=== PATIENT | male | born 1955 | race Hispanic/Latino ===

== ENCOUNTER 2016-09-25 12:23 | Inpatient (IN) | payer MEDICARE, OTHER ==
[2016-09-25 13:05] VITALS: BMI 27.4
--- NOTE | 2016-09-25 13:27 | C.PDOC ---
History Of Present Illness 61 yr old male with PMHx of HTN, diabetes and colon cancer, presents to the ER with complaints of dizziness, weakness and mild chest heaviness for the past 3 days. Patient denies fever, SOB, nausea, vomiting, abdominal pain, diarrhea, melena or back pain. Time Seen by Provider: 09/25/16 13:03 Chief Complaint (Nursing): Weakness/Neurological Deficit History Per: Patient History/Exam Limitations: no limitations Onset/Duration Of Symptoms: Days (3) Current Symptoms Are (Timing): Still Present Past Medical History Reviewed: Historical Data, Nursing Documentation, Vital Signs Vital Signs: Last Vital Signs Temp 97.5 F L 09/25/16 13:03 Pulse 72 09/25/16 16:37 Resp 18 09/25/16 16:37 BP 143/70 09/25/16 16:37 Pulse Ox 98 09/25/16 16:37 - Medical History PMH: HTN, Malignancy (colon) - [facility] Procedures EXCISION OF STOMACH, ENDO, DIAGN (02/29/16) INSPECTION OF LOWER INTESTINAL TRACT, ENDO (02/29/16) Family History: States: No Known Family Hx - Social History Hx Alcohol Use: No Hx Substance Use: No - Immunization History Hx Tetanus Toxoid Vaccination: No Hx Influenza Vaccination: No Hx Pneumococcal Vaccination: No Review Of Systems Except As Marked, All Systems Reviewed And Found Negative. Constitutional: Positive for: Weakness. Negative for: Fever Cardiovascular: Positive for: Other ((+) Mild chest heaviness. ) Respiratory: Negative for: Shortness of Breath Gastrointestinal: Negative for: Nausea, Vomiting, Abdominal Pain, Diarrhea, Melena Musculoskeletal: Negative for: Back Pain Neurological: Positive for: Dizziness Physical Exam - Physical Exam Appears: Non-toxic, No Acute Distress, Other ((+) Cachectic) Skin: Warm, Dry, Pale Head: Atraumatic, Normacephalic Eye(s): bilateral: Normal Inspection, PERRL, EOMI Oral Mucosa: Moist Chest: Symmetrical, No Tenderness Cardiovascular: Rhythm Regular, No Murmur Respiratory: Normal Breath Sounds, No Rales, No Rhonchi, No Stridor, No Wheezing Gastrointestinal/Abdominal: Normal Exam, Soft, No Tenderness, No Guarding, No Rebound Extremity: Normal ROM, No Swelling ED Course And Treatment - Laboratory Results Result Diagrams: 09/25/16 14:29 09/25/16 14:29 O2 Sat by Pulse Oximetry: 98 - Other Rad CXR X-Ray: Viewed By Me, Read By Radiologist Interpretation: PROCEDURE: CHEST RADIOGRAPH, 1 VIEW. HISTORY: chest pain. COMPARISON: 02/29/2016. FINDINGS: LUNGS: Biapical pleural thickening with upper lobe granulomatous changes. Diffuse increased interstitial lung markings. Right hilar prominence. Mild right midlung atelectasis. No gross focal infiltrate or effusion. PLEURA: No pneumothorax or pleural fluid seen. CARDIOVASCULAR: Tortuous aorta. OSSEOUS STRUCTURES: Degenerative changes in the spine and shoulders. VISUALIZED UPPER ABDOMEN: Normal. OTHER FINDINGS: None. IMPRESSION: Biapical pleural thickening with upper lobe granulomatous changes. Diffuse increased interstitial lung markings. Right hilar prominence. Mild right midlung atelectasis. No gross focal infiltrate or effusion. Medical Decision Making Medical Decision Making: r/o cardiac, infectious, metabolic etiology -PLAN: * * CT - Abd & Pelvis * CXR * EKG * Troponin * VBG * CBC * CMP * Urinalysis * Rocephin IVPB 500: la >2. code sepsis activated. wbc 17. hemodynacmially stable. does not need 30cc/kg bolus. urine treated. case discussed withnay minor, accepts tele. Disposition - Disposition Disposition: HOSPITALIZED Disposition Time: 17:06 Condition: STABLE - Clinical Impression Clinical Impression: Sepsis, UTI (urinary tract infection) - Scribe Statement The provider has reviewed the documentation as recorded by the Nicolas Fierro Provider Attestation: All medical record entries made by the Rubénibe were at my direction and personally dictated by me. I have reviewed the chart and agree that the record accurately reflects my personal performance of the history, physical exam, medical decision making, and the department course for this patient. I have also personally directed, reviewed, and agree with the discharge instructions and disposition. Decision To Admit - Pt Status Changed To: Hospital Disposition Of: Inpatient - Admit Certification Admit to Inpatient:: After my assessment, the patient will require hospitalization for at least two midnights. This is because of the severity of symptoms shown, intensity of services needed, and/or the medical risk in this patient being treated as an outpatient. - InPatient: Physician Admission Certification: I certify that this patient requires 2 or more midnights of care for the following reason:: pt with code sepsis, uro septic needs iv antibiotics - . Bed Request Type: Telemetry Admitting Physician: Gibran Minor Patient Diagnosis: Sepsis, UTI (urinary tract infection)
[2016-09-25 14:43] LABS: BASO % 0.3 % (0.0-2.0); LYMPH # 1.1 K/uL (1.0-4.3); LYMPH % 6.7 % (20.0-40.0); MEAN CELL VOLUME 77.5 fL (80.0-94.0); MEAN CORPUSCULAR HEMOGLOBIN 25.7 pg (27.0-31.0); MEAN CORPUSCULAR HGB CONC 33.1 g/dL (33.0-37.0); MONO % 5.8 % (0.0-10.0); NEUT # 14.5 K/uL (1.8-7.0); NEUT % 87.2 % (50.0-75.0); PLATELET COUNT 252 K/uL (130-400); RBC 5.21 Mil/uL (4.40-5.90); RED CELL DISTRIBUTION WIDTH 18.1 % (11.5-14.5)
[2016-09-25 14:44] LABS: ALBUMIN 4.3 g/dL (3.5-5.0); HEMOGLOBIN 13.4 g/dL (12.0-18.0); WHITE BLOOD COUNT 16.6 K/uL (4.8-10.8)
[2016-09-25 14:47] LABS: ALB/GLOB RATIO 0.8 (1.0-2.1); ALT/SGPT 47 U/L (21-72); AST/SGOT 36 U/L (17-59); BLOOD UREA NITROGEN 18 mg/dL (9-20); GFR AFRICAN-AMERICAN > 60; GFR NON-AFRICAN AMERICAN > 60
[2016-09-25 14:48] LABS: CALCIUM 9.5 mg/dl (8.6-10.4); LIPASE 108 U/L (23-300)
[2016-09-25 14:54] LABS: INR 1.2
[2016-09-25 14:55] LABS: PROTHROMBIN TIME 13.3 SECONDS (9.7-12.2)
[2016-09-25 15:03] LABS: NEUTROPHIL 87 % (50-75); TOTAL CELLS COUNTED 100
[2016-09-25 15:04] LABS: ANISOCYTOSIS SLIGHT; LYMPHOCYTE 7 % (20-40); MONOCYTE 6 % (0-10); OVALOCYTES SLIGHT; PLATELET ESTIMATE NORMAL (NORMAL)
[2016-09-25 15:29] LABS: SQUAMOUS EPITHIAL 2 /hpf (0-5); URINE BACTERIA FEW (<OCC); URINE BILIRUBIN NEGATIVE (NEGATIVE); URINE BLOOD 1+ (NEGATIVE); URINE CLARITY Hazy (Clear); URINE COLOR Amber (YELLOW); URINE GLUCOSE (UA) 1+ mg/dL (Normal); URINE HYALINE CAST 0-2 /lpf (0-2); URINE LEUKOCYTE ESTERASE 2+ Leu/uL (Negative); URINE NITRATE POSITIVE (NEGATIVE); URINE PROTEIN 2+ mg/dL (NEGATIVE); URINE UROBILINOGEN NORMAL mg/dL (0.2-1.0)
[2016-09-25] MEDS ORDERED: Sodium Chloride 0.9% 1,000 ML IV ONE (15:33)
[2016-09-25] MEDS ORDERED: Iodixanol 320 mg/ml 150 ml Bottle IV ONE (15:38)
--- NOTE | 2016-09-25 15:41 | RAD ---
PROCEDURE: CHEST RADIOGRAPH, 1 VIEW HISTORY: chest pain COMPARISON: 02/29/2016 FINDINGS: LUNGS: Biapical pleural thickening with upper lobe granulomatous changes. Diffuse increased interstitial lung markings. Right hilar prominence. Mild right midlung atelectasis. No gross focal infiltrate or effusion. PLEURA: No pneumothorax or pleural fluid seen. CARDIOVASCULAR: Tortuous aorta. OSSEOUS STRUCTURES: Degenerative changes in the spine and shoulders. VISUALIZED UPPER ABDOMEN: Normal. OTHER FINDINGS: None. IMPRESSION: Biapical pleural thickening with upper lobe granulomatous changes. Diffuse increased interstitial lung markings. Right hilar prominence. Mild right midlung atelectasis. No gross focal infiltrate or effusion.
[2016-09-25] MEDS ORDERED: Sodium Chloride 0.9% 1,000 ML ONE (15:53)
[2016-09-25] MEDS ORDERED: cefTRIAXone IV 1 gm in Dextros 50 ML IVPB ONE (15:53)
[2016-09-25 15:58] LABS: VENOUS BLOOD GAS BASE EXCESS 2.5 mmol/L (0.0-2.0); VENOUS BLOOD GAS PCO2 37 mmHg (40-60); VENOUS BLOOD GAS PO2 40 mm/Hg (30-55); VENOUS BLOOD PH 7.46 (7.32-7.43)
--- NOTE | 2016-09-25 16:54 | CT ---
CT abdomen and pelvis History: Abdominal pain. Leukocytosis. Comparison: CT scan dated 03/03/2016 Technique: Multiple contiguous axial images were performed through the abdomen and pelvis with the use of intravenous contrast. Subsequently, sagittal and coronal reformatted images were obtained. This CT exam was performed using one or more of the following dose reduction techniques: Automated exposure control, adjustment of the mA and/or kV according to patient size, and/or use of iterative reconstruction technique. Findings: 8.4 millimeter pulmonary nodule seen within the right middle lobe laterally on series 3, image 6 previously this measured 6 millimeters. Interval increase in size since the prior study. Atelectasis within the lingula and bilateral lung bases. Additional scattered calcified foci at the left lung base suggestive for calcified granulomatous changes. 5 millimeter subpleural pulmonary nodule at the right lobe laterally not as well appreciated the prior study. No pleural or pericardial effusion. Fatty infiltration of the liver. Few punctate calculi at the dependent portion the gallbladder. Gallbladder is somewhat distended. Spleen is preserved. Splenule. Adrenal glands are preserved. Pancreas is preserved. Underdistended and or mildly thick-walled stomach. Atrophic right kidney with multiple hypoechoic cysts. Left kidney: Multiple hypoattenuated lesions; for example, in the midpole a 1.3 centimeter lesion demonstrates a Hounsfield unit attenuation of 25, indeterminate. Thick-walled urinary bladder which may represent an underlying cystitis. Prominent and enlarged prostate gland measuring up to 6.0 x 4.3 centimeters with thickened nodular calcification within the midportion of the prostate measuring 1.5 centimeters. Prominent seminal vesicles with calcifications with prominent pelvic vascular calcifications. Mild thickening of the descending and sigmoid colons which may represent an underlying mild colitis. Clinical correlation. Patient status post right hemicolectomy. Few shotty para-aortic and mesenteric lymph nodes. Calcification and plaque within the aorta. Fat containing right inguinal hernia. Soft tissue calcifications seen within the bilateral buttock regions. Prominent degenerative changes in the spine. Bridging sclerosis of the bilateral SI joints. Multilevel posterior disc osteophyte complexes throughout the thoracic and lumbar spine. Impression: 1. Thick-walled urinary bladder which may represent an underlying cystitis. 2. Prominent and enlarged prostate gland measuring up to 6.0 x 4.3 centimeters with thickened nodular calcification within the midportion of the prostate measuring 1.5 centimeters. 3. Prominent seminal vesicles with calcifications with prominent pelvic vascular calcifications. 4. Mild thickening of the descending and sigmoid colons which may represent an underlying mild colitis. Clinical correlation. Patient status post right hemicolectomy. 5. 8.4 millimeter pulmonary nodule seen within the right middle lobe laterally on series 3, image 6 previously this measured 6 millimeters. Interval increase in size since the prior study. 6. Atelectasis within the lingula and bilateral lung bases. Additional scattered calcified foci at the left lung base suggestive for calcified granulomatous changes. 5 millimeter subpleural pulmonary nodule at the right lobe laterally not as well appreciated the prior study. 7. Fatty infiltration of the liver. 8. Few punctate calculi at the dependent portion the gallbladder. Gallbladder is somewhat distended. 9. Underdistended and or mildly thick-walled stomach. 10. Atrophic right kidney with multiple hypoechoic cysts. 11. Multiple hypoattenuated lesions in the left kidney ; for example, in the midpole a 1.3 centimeter lesion demonstrates a Hounsfield unit attenuation of 25, indeterminate. Additional findings as above.
--- NOTE | 2016-09-25 18:56 | CP.PCM.HP ---
<Booker Land - Last Filed: 09/25/16 19:54> History of Present Illness - History of Present Illness History of Present Illness: CC: "weakness, lightheadedness and decreased appetite" HPI: 61 year old Male PMHx dermatomyositis, TIA/stroke, hypertension, hypothyroidism, diabetes, colon cancer, presenting to the ED complaining of weakness, lightheadness, and decreased appetite for past 4 days.Patient reports first time feeling weakness, lightheadedness and decreased appetite. Patient denies relieving and remitting factors. Patient also frequency in urination, denies dysuria, denies hematuira, and reports changed from normal flow to short streams. Patient reports he usually eats TV dinners, and but currently he is currently forcing himself to eat about 1-2 bites. He states that after 1-2 bites , he feels full. PMD: Dr. Maki GI: Dr. Layne PMHxx: dermatomyositis (dx at age 7), TIA/stroke, hypertension, hypothyroidism, diabetes, colon cancer (dx 2012) Surgical Hx: 2013- Colon cancer co-resection; lost 40lbs; muscle biopsy; prior hx of feeding tube Medications: metformin 500mg PO bid, Tradjenta 5mg once a day , enalapril 10mg PO BID Family Hx Mother; cancer unknown Allergies: denies Social Hx: denies drugs, denies alcohol consumption; lives by himself; lives in basement apartment; 3 cigars a day since age 24 Prior hospitalization: bleeding (February 2016)--> underwent endoscopic procedure Present on Admission - Present on Admission Any Indicators Present on Admission: No Review of Systems - Constitutional Constitutional: Weakness. absent: Chills, Fever, Frequent Falls - EENT Ears: Dizziness Nose/Mouth/Throat: absent: Nasal Congestion, Nasal Discharge - Cardiovascular Cardiovascular: absent: Chest Pain, Claudication, Irregular Heart Rhythm, Leg Edema, Palpitations, Pedal Edema - Respiratory Respiratory: absent: As Per HPI, Cough, Dyspnea, Hemoptysis - Gastrointestinal Gastrointestinal: Early Satiety. absent: Abdominal Pain, Change in Bowel Habits , Constipation, Heartburn, Loose Stools, Nausea - Genitourinary Genitourinary: Change in Urinary Stream, Urinary Frequency. absent: Difficulty Urinating, Dysuria - Musculoskeletal Musculoskeletal: absent: Myalgias, Numbness, Tingling - Integumentary Integumentary: absent: Erythema, Non-Healing Lesions, Photosensitivity, Skin Ulcer, Jaundice - Neurological Neurological: Weakness. absent: Abnormal Movements, Tingling, Tremor - Psychiatric Psychiatric: Change in Appetite. absent: Anxiety, Panic Attacks, Suicidal Ideation - Endocrine Endocrine: absent: Fatigue, Palpitations Past Patient History - Past Medical History & Family History Past Medical History?: Yes - Past Social History Smoking Status: Smokes 3 Cigars/day Chewing Tobacco Use: No Cigar Use: No Alcohol: None Drugs: Denies Home Situation {Lives}: Alone - CARDIAC Hx Hypertension: Yes - PULMONARY Hx Respiratory Disorders: No - NEUROLOGICAL Hx Neurological Disorder: Yes HX Cerebrovascular Accident: Yes (Pt reports swallowing problem since CVA) - HEENT Hx HEENT Problems: No - ENDOCRINE/METABOLIC Hx Endocrine Disorders: Yes Hx Diabetes Mellitus Type 2: Yes - HEMATOLOGICAL/ONCOLOGICAL Hx Blood Disorders: Yes Hx Cancer: Yes (COLON CA) - INTEGUMENTARY Hx Dermatological Problems: Yes Other/Comment: dermatomyositis - MUSCULOSKELETAL/RHEUMATOLOGICAL Hx Musculoskeletal Disorders: Yes - GASTROINTESTINAL Hx Gastrointestinal Disorders: Yes Hx Bowel Surgery: Yes Other/Comment: COLON CANCER. GI Bleed= feb 2016 - GENITOURINARY/GYNECOLOGICAL Hx Genitourinary Disorders: No - PSYCHIATRIC Hx Substance Use: No - SURGICAL HISTORY Hx Surgeries: Yes Other/Comment: colon cancer surgery - ANESTHESIA Hx Anesthesia: Yes Hx Anesthesia Reactions: No Meds Allergies/Adverse Reactions: Allergies Allergy/AdvReac Type Severity Reaction Status Date / Time No Known Allergies Allergy Verified 09/25/16 13:02 Physical Exam - Constitutional Appears: Non-toxic, No Acute Distress, Cachectic - Head Exam Head Exam: ATRAUMATIC, NORMAL INSPECTION, NORMOCEPHALIC - Eye Exam Eye Exam: EOMI, Normal appearance Pupil Exam: NORMAL ACCOMODATION, PERRL - ENT Exam ENT Exam: Mucous Membranes Moist - Neck Exam Neck exam: Positive for: Normal Inspection - Respiratory Exam Respiratory Exam: Clear to Auscultation Bilateral, NORMAL BREATHING PATTERN. absent: Prolonged Expiratory Phase, Rales, Rhonchi, Wheezes - Cardiovascular Exam Cardiovascular Exam: REGULAR RHYTHM, +S1, +S2 - GI/Abdominal Exam GI & Abdominal Exam: Normal Bowel Sounds, Soft. absent: Distended, Firm, Guarding, Tenderness - Extremities Exam Extremities exam: Positive for: normal capillary refill, pedal pulses present - Neurological Exam Neurological exam: Alert, CN II-XII Intact, Oriented x3 - Psychiatric Exam Psychiatric exam: Normal Affect, Normal Mood - Skin Skin Exam: Dry, Intact, Normal Color, Warm Results - Vital Signs Recent Vital Signs: Last Vital Signs Temp 97.5 F L 09/25/16 13:03 Pulse 72 09/25/16 16:37 Resp 18 09/25/16 16:37 BP 143/70 09/25/16 16:37 Pulse Ox 98 09/25/16 17:07 - Labs Result Diagrams: 09/25/16 14:29 09/25/16 14:29 Assessment & Plan (1) Sepsis Status: Acute Comment: Code Sepsis. HR: 92. WBC 16.6, Neutr % 87.2. Lactate 2.4. Source: UTI- UA LE 2+, Nitrate positive, WBC 77. Started on Ceftriaxone 1gm Q24h. pending blood and urine cx. CT Abdomen/Pelvis CT- Thick-walled urinary bladder which may represent an underlying cystitis. Prominent and enlarged prostate gland measuring 6.0x 4.3 cm with thickened nodular calcification. Mild thickening of descending sigmoid colon which my represent an underlying mild colitis. 8.4mm pulmonary nodule seen within the right middle lobe. Atelectasis within lingula and iblateral lung bases. Fatty liver. (PLease see full report) (2) UTI (urinary tract infection) Status: Acute Comment: See Sepsis. (3) Urinary hesitancy Status: Acute Comment: CT Abdomen/Pelvis CT- Thick-walled urinary bladder which may represent an underlying cystitis. Prominent and enlarged prostate gland measuring 6.0x 4.3 cm with thickened nodular calcification. Mild thickening of descending sigmoid colon which my represent an underlying mild colitis. 8.4mm pulmonary nodule seen within the right middle lobe. Atelectasis within lingula and iblateral lung bases. Fatty liver. (PLease see full report). f/u PSA (Free/ total) (4) Diabetes mellitus Status: Acute Comment: Metformin 500mg PO BID. Accucheck ACHS. RISS. Heart Healthy, Mod CHO diet. f/u HgbA1C (5) Wasting generalized Status: Chronic Comment: motorized squad commanding officer referral (6) History of colon cancer Status: Acute Comment: Consult Hem[facility]- Dr. Pedro- f/u colon cancer hx (7) Prophylactic measure Status: Acute Comment: SCDs. Heparin 5000U SC Q8h. Pepcid 20mg PO BID <Josee Colindres V - Last Filed: 09/25/16 23:03> Results - Vital Signs Recent Vital Signs: Last Vital Signs Temp 98.1 F 09/25/16 19:45 Pulse 69 09/25/16 19:45 Resp 18 09/25/16 19:45 BP 157/78 H 09/25/16 19:45 Pulse Ox 97 09/25/16 19:45 - Labs Result Diagrams: 09/25/16 14:29 09/25/16 14:29 Labs: Laboratory Results - last 24 hr 09/25/16 20:58 pO2 35 VBG pH 7.43 VBG pCO2 41 VBG HCO3 26.2 VBG Total CO2 28.5 H VBG O2 Sat (Calc) 79.6 H VBG Base Excess 2.6 H VBG Potassium 3.9 Sodium 136.0 Chloride 100.0 Glucose 110 Lactate 1.6 Venous Blood Potassium 3.9 Attending/Attestation - Attestation I have personally seen and examined this patient.: Yes I have fully participated in the care of the patient.: Yes I have reviewed all pertinent clinical information: Yes Notes (Text): Patient seen, examined and case discussed with day-time resident. Patient was called as code sepsis by ED, patient is tacycardic and leukocytosis ; suspected source urinary tract infection. Received fluid bolus and IV abx. Repeat lactic acid order Discussed admitting orders with day-time resident. Assessment and Plan (1) Sepsis Status: Acute Comment: * 09/25: Critieria: Code Sepsis called. HR: 92. WBC 16.6, Neutr % 87.2. Lactate 2.4. Source: UTI- UA LE 2+, Nitrate positive, WBC 77. Repeat lactic acid ordered * Patient started on IV fluids. * Started on Ceftriaxone 1gm Q24h (active since 09/25/16). * pending blood and urine cx. * CT Abdomen/Pelvis CT (IV contrast only)- Thick-walled urinary bladder which may represent an underlying cystitis. Prominent and enlarged prostate gland measuring 6.0x 4.3 cm with thickened nodular calcification. Mild thickening of descending sigmoid colon which my represent an underlying mild colitis. 8.4mm pulmonary nodule seen within the right middle lobe. Atelectasis within lingula and biateral lung bases. Fatty liver. (Please see full report) (2) UTI (urinary tract infection) Status: Acute Comment: * 09/25: See Sepsis. f/u urine culture (3) Urinary hesitancy Status: Acute Comment: * 09/25: CT Abdomen/Pelvis CT- Thick-walled urinary bladder which may represent an underlying cystitis. Prominent and enlarged prostate gland measuring 6.0x 4.3 cm with thickened nodular calcification. Mild thickening of descending sigmoid colon which my represent an underlying mild colitis. 8.4mm pulmonary nodule seen within the right middle lobe. Atelectasis within lingula and bilateral lung bases. Fatty liver. (PLease see full report). * f/u PSA (Free/ total) (4) Diabetes mellitus Status: Chronic Comment: * 09/25: c/w Metformin 500mg PO BID. Accucheck ACHS. RISS. Heart Healthy, Mod CHO diet. f/u HgbA1C, Lipid profile (5) Wasting generalized Status: Chronic Comment: motorized squad commanding officer referral (6) History of colon cancer Status: Chronic Comment: * 09/25: Consult Hemeon[facility]- Dr. Pedro- f/u colon cancer hx; patient's heme-onc who he has not followed up with (7) Prophylactic measure Status: Acute Comment: * SCDs. Heparin 5000U SC Q8h. Pepcid 20mg PO BID * PT/OT eval * motorized squad commanding officer referral
[2016-09-25] MEDS: Sodium Chloride 0.9% 1,000 ML IV SCH (20:28)
[2016-09-25 21:02] LABS: VENOUS BLOOD GAS BASE EXCESS 2.6 mmol/L (0.0-2.0); VENOUS BLOOD GAS PCO2 41 mmHg (40-60); VENOUS BLOOD GAS PO2 35 mm/Hg (30-55); VENOUS BLOOD PH 7.43 (7.32-7.43)
--- NOTE | 2016-09-25 21:15 | PCM.SEPTIC ---
Sepsis Progress Note - Reassessment Type Date of Evaluation: 09/25/16 Time of Evaluation: 08:45 Reassessment Type: Non-invasive reassessment - Non Invasive Reassessment Were the most recent vital sign reviewed: Yes Vital Sign (Latest): Temp Pulse Resp BP Pulse Ox 98.6 F 73 13 151/74 H 96 09/25/16 19:16 09/25/16 19:16 09/25/16 19:16 09/25/16 19:16 09/25/16 19:16 Cardiovascular: Yes: Regular Rate, Rhythm Respiratory: Yes: Normal Breath Sounds Capillary Refill: Normal (Less than 2 sec) Skin: Normal Color, Warm, Dry Was a bedside cardiovascular ultrasound performed within 6 hours after the presentation of septic shock: No Was a passive leg raise performed or was a fluid challenge performed within 6 hrs of the initial fluid bolus: No Fluid Challenge performed: No <Booker Land - Last Filed: 09/25/16 21:07> - Non Invasive Reassessment Vital Sign (Latest): Temp Pulse Resp BP Pulse Ox 98.1 F 69 18 157/78 H 97 09/25/16 19:45 09/25/16 19:45 09/25/16 19:45 09/25/16 19:45 09/25/16 19:45 <Josee Colindres V - Last Filed: 09/25/16 23:04> Attending/Attestation - Attestation I have personally seen and examined this patient.: Yes I have fully participated in the care of the patient.: Yes I have reviewed all pertinent clinical information, including history, physical exam and plan: Yes Notes (Text): Time: 845PM Lactic acid has improved Monitor vital signs on IV fluids On IV abx monitor cultures <Josee Colindres V - Last Filed: 09/25/16 23:04>
[2016-09-25] MEDS: (Novolin R) Insulin Human Regular 100 units/ml vial SC SCH (22:02)
[2016-09-26 08:24] LABS: ALBUMIN 3.7 g/dL (3.5-5.0)
[2016-09-26 08:26] LABS: BASO # 0.1 K/uL (0.0-0.2); BASO % 0.5 % (0.0-2.0); EOS # 0.4 K/uL (0.0-0.7); EOS % 3.5 % (0.0-4.0); HEMOGLOBIN 12.1 g/dL (12.0-18.0); LYMPH # 1.4 K/uL (1.0-4.3); LYMPH % 13.9 % (20.0-40.0); MEAN CELL VOLUME 77.6 fL (80.0-94.0); MEAN CORPUSCULAR HGB CONC 33.5 g/dL (33.0-37.0); MEAN PLATELET VOLUME 8.3 fL (7.2-11.7); MONO # 0.6 K/uL (0.0-0.8); MONO % 6.2 % (0.0-10.0); NEUT # 7.8 K/uL (1.8-7.0); NEUT % 75.9 % (50.0-75.0); RBC 4.67 Mil/uL (4.40-5.90); RED CELL DISTRIBUTION WIDTH 17.8 % (11.5-14.5); WHITE BLOOD COUNT 10.2 K/uL (4.8-10.8)
[2016-09-26 08:27] LABS: GFR AFRICAN-AMERICAN > 60; GFR NON-AFRICAN AMERICAN > 60
[2016-09-26 08:28] LABS: ALB/GLOB RATIO 0.8 (1.0-2.1); ALT/SGPT 43 U/L (21-72); AST/SGOT 41 U/L (17-59); BLOOD UREA NITROGEN 15 mg/dL (9-20); CALCIUM 8.6 mg/dl (8.6-10.4)
[2016-09-26] MEDS: (Novolin R) Insulin Human Regular 100 units/ml vial SC SCH ×4 (08:28→22:20)
[2016-09-26 08:29] LABS: HDL CHOLESTEROL 22 mg/dL (30-70); MAGNESIUM 1.7 mg/dL (1.6-2.3)
[2016-09-26 08:39] LABS: LDL CHOLESTEROL 66 mg/dL (0-129)
[2016-09-26] MEDS: Sodium Chloride 0.9% 1,000 ML IV SCH ×2 (09:05→10:47)
[2016-09-26] MEDS: Saccharomyces Boulardi 250 mg Cap PO SCH ×2 (10:18→17:14)
--- NOTE | 2016-09-26 17:08 | CP.PCM.PN ---
<[place] - Last Filed: 09/26/16 17:06> Subjective - Date & Time of Evaluation Date of Evaluation: 09/26/16 Time of Evaluation: 09:00 - Subjective Subjective: Medicine note- Hospitalist service Patient was seen and examined at bedside. Patient reports no acute complaints at this time. He says he feels a bit better than on admission. He states he ate a sandwich last night. No events overnight, per nursing. Objective - Vital Signs/Intake and Output Vital Signs (last 24 hours): Temp Pulse Resp BP Pulse Ox 98.5 F 65 20 148/81 99 09/26/16 09:12 09/26/16 09:12 09/26/16 09:12 09/26/16 10:16 09/26/16 09:12 Intake and Output: 09/26/16 09/26/16 06:59 18:59 Intake Total 1185 840 Output Total 650 Balance 535 840 - Medications Medications: Current Medications Enalapril Maleate (Vasotec) 10 mg PO BID COUNT INCLUDES THE [facility] Last Admin: 09/26/16 10:16 Dose: 10 mg Famotidine (Pepcid) 20 mg PO BID COUNT INCLUDES THE [facility] Last Admin: 09/26/16 10:16 Dose: 20 mg Heparin Sodium (Porcine) (Heparin) 5,000 units SC Q8 COUNT INCLUDES THE [facility] Last Admin: 09/26/16 13:48 Dose: 5,000 units Sodium Chloride (Sodium Chloride 0.9%) 1,000 mls @ 75 mls/hr IV .[id number] COUNT INCLUDES THE [facility] Last Admin: 09/26/16 10:47 Dose: 75 mls/hr Ceftriaxone Sodium 1 gm/ (Sodium Chloride) 100 mls @ 100 mls/hr IVPB Q24H COUNT INCLUDES THE [facility] Insulin Human Regular (Novolin R) 0 unit SC ACHS COUNT INCLUDES THE [facility] PRN Reason: Protocol Last Admin: 09/26/16 16:53 Dose: Not Given Metformin HCl (Glucophage) 500 mg PO BID COUNT INCLUDES THE [facility] Last Admin: 09/26/16 10:16 Dose: 500 mg Saccharomyces Boulardii (Florastor) 250 mg PO BID COUNT INCLUDES THE [facility] Last Admin: 09/26/16 10:18 Dose: 250 mg - Labs Labs: 09/26/16 08:05 09/26/16 08:05 PT 13.3 SECONDS (9.7-12.2) H 09/25/16 14:29 INR 1.2 07/08/17 14:29 APTT 29 SECONDS (21-34) 09/25/16 14:29 - Constitutional Appears: Non-toxic, No Acute Distress, Cachectic - Head Exam Head Exam: ATRAUMATIC, NORMAL INSPECTION, NORMOCEPHALIC - Eye Exam Pupil Exam: NORMAL ACCOMODATION, PERRL - ENT Exam ENT Exam: Mucous Membranes Moist - Respiratory Exam Respiratory Exam: Clear to Ausculation Bilateral, NORMAL BREATHING PATTERN. absent: Prolonged Expiratory Phase, Rales, Rhonchi, Wheezes - Cardiovascular Exam Cardiovascular Exam: REGULAR RHYTHM, +S1, +S2 - GI/Abdominal Exam GI & Abdominal Exam: Soft, Normal Bowel Sounds. absent: Tenderness, Diminished Bowel Sounds, Hernia, Hypoactive Bowel Sounds - Extremities Exam Extremities Exam: Normal Capillary Refill, Normal Inspection - Neurological Exam Neurological Exam: Alert, Awake, Oriented x3 - Psychiatric Exam Psychiatric exam: Normal Affect, Normal Mood - Skin Skin Exam: Dry, Intact, Normal Color, Warm Assessment and Plan (1) Sepsis Status: Acute (2) UTI (urinary tract infection) Status: Acute (3) Urinary hesitancy Status: Acute (4) Diabetes mellitus Status: Acute (5) Wasting generalized Status: Chronic (6) History of colon cancer Status: Acute (7) Prophylactic measure Status: Acute - Assessment and Plan (Free Text) Assessment: (1) Sepsis Status: Acute Comment: Code Sepsis. HR: 92. WBC 16.6, Neutr % 87.2. Lactate 2.4. Source: UTI- UA LE 2+, Nitrate positive, WBC 77. Started on Ceftriaxone 1gm Q24h. pending blood and urine cx. CT Abdomen/Pelvis CT- Thick-walled urinary bladder which may represent an underlying cystitis. Prominent and enlarged prostate gland measuring 6.0x 4.3 cm with thickened nodular calcification. Mild thickening of descending sigmoid colon which my represent an underlying mild colitis. 8.4mm pulmonary nodule seen within the right middle lobe. Atelectasis within lingula and iblateral lung bases. Fatty liver. (PLease see full report) Repeat Lactate 1.6 (2) UTI (urinary tract infection) Status: Acute Comment: See Sepsis. (3) Urinary hesitancy Status: Acute Comment: CT Abdomen/Pelvis CT- Thick-walled urinary bladder which may represent an underlying cystitis. Prominent and enlarged prostate gland measuring 6.0x 4.3 cm with thickened nodular calcification. Mild thickening of descending sigmoid colon which my represent an underlying mild colitis. 8.4mm pulmonary nodule seen within the right middle lobe. Atelectasis within lingula and bilateral lung bases. Fatty liver. (PLease see full report). f/u PSA (Free/ total) (4) Diabetes mellitus Status: Acute Comment: Metformin 500mg PO BID. Accucheck ACHS. RISS. Heart Healthy, Mod CHO diet. f/u HgbA1C (5) Wasting generalized Status: Chronic Comment: outbound sales specialist referral (6) History of colon cancer Status: Acute Comment: Consult [facility]- Dr. Pedro- f/u colon cancer hx (7) Prophylactic measure Status: Acute Comment: SCDs. Heparin 5000U SC Q8h. Pepcid 20mg PO BID PT/OT <Josee Colindres V - Last Filed: 09/27/16 00:00> Objective - Vital Signs/Intake and Output Vital Signs (last 24 hours): Temp Pulse Resp BP Pulse Ox 98 F 64 20 120/66 99 09/26/16 15:40 09/26/16 16:00 09/26/16 15:40 09/26/16 17:15 09/26/16 15:40 Intake and Output: 09/26/16 09/27/16 18:59 06:59 Intake Total 840 840 Balance 840 840 - Medications Medications: Current Medications Enalapril Maleate (Vasotec) 10 mg PO BID COUNT INCLUDES THE [facility] Last Admin: 09/26/16 17:15 Dose: 10 mg Famotidine (Pepcid) 20 mg PO BID COUNT INCLUDES THE [facility] Last Admin: 09/26/16 17:14 Dose: 20 mg Heparin Sodium (Porcine) (Heparin) 5,000 units SC Q8 COUNT INCLUDES THE [facility] Last Admin: 09/26/16 21:30 Dose: 5,000 units Sodium Chloride (Sodium Chloride 0.9%) 1,000 mls @ 75 mls/hr IV .[id number] COUNT INCLUDES THE [facility] Last Admin: 09/26/16 10:47 Dose: 75 mls/hr Ceftriaxone Sodium 1 gm/ (Sodium Chloride) 100 mls @ 100 mls/hr IVPB Q24H COUNT INCLUDES THE [facility] Last Admin: 09/26/16 17:00 Dose: 100 mls/hr Insulin Human Regular (Novolin R) 0 unit SC ACHS [facility] PRN Reason: Protocol Last Admin: 09/26/16 22:20 Dose: Not Given Metformin HCl (Glucophage) 500 mg PO BID COUNT INCLUDES THE [facility] Last Admin: 09/26/16 17:14 Dose: 500 mg Saccharomyces Boulardii (Florastor) 250 mg PO BID COUNT INCLUDES THE [facility] Last Admin: 09/26/16 17:14 Dose: 250 mg - Labs Labs: 09/26/16 08:05 09/26/16 08:05 PT 13.3 SECONDS (9.7-12.2) H 09/25/16 14:29 INR 1.2 09/25/16 14:29 APTT 29 SECONDS (21-34) 09/25/16 14:29 Attending/Attestation - Attestation I have personally seen and examined this patient.: Yes I have fully participated in the care of the patient.: Yes I have reviewed all pertinent clinical information, including history, physical exam and plan: Yes Notes (Text): Patient seen, examined and case discussed with day-time resident. Patient reports he ate a sandwich this morning report he forced himself to eat it. Ordered for calorie count. Patient's white count improved. Awaiting final urine culture. On IV abx. PT/OT eval pending PSA pending Assessment and Plan (1) Sepsis Status: Acute Comment: * 09/26: white count improved; f/u urine culture * 09/25: Criteria: Code Sepsis called. HR: 92. WBC 16.6, Neutr % 87.2. Lactate 2.4-->1.6 Source: UTI- UA LE 2+, Nitrate positive, WBC 77. * Patient started on IV fluids. * Started on Ceftriaxone 1gm Q24h (active since 09/25/16). * Florastor 250mg PO BID * Blood cultures (09/25/16): no growth after 24hours X2 * Urine culture (09/25/16): Staph aureus; gram negative rip-->awaiting final culture * CT Abdomen/Pelvis CT (IV contrast only)- Thick-walled urinary bladder which may represent an underlying cystitis. Prominent and enlarged prostate gland measuring 6.0x 4.3 cm with thickened nodular calcification. Mild thickening of descending sigmoid colon which my represent an underlying mild colitis. 8.4mm pulmonary nodule seen within the right middle lobe. Atelectasis within lingula and biateral lung bases. Fatty liver. (Please see full report) (2) UTI (urinary tract infection) Status: Acute Comment: * 09/25: See Sepsis. f/u urine culture (3) Urinary hesitancy Status: Acute Comment: * 09/26 Pending PSA; possible may need eval if hesistancy does not improve; given enlarged prostate noted on CT scan * 09/25: CT Abdomen/Pelvis CT- Thick-walled urinary bladder which may represent an underlying cystitis. Prominent and enlarged prostate gland measuring 6.0x 4.3 cm with thickened nodular calcification. Mild thickening of descending sigmoid colon which my represent an underlying mild colitis. 8.4mm pulmonary nodule seen within the right middle lobe. Atelectasis within lingula and bilateral lung bases. Fatty liver. (PLease see full report). * f/u PSA (Free/ total) (4) Diabetes mellitus Status: Chronic Comment: * 09/26: Hgba1c: 7.4; c/w Metformin 500mg PO BID; Lipid Panel: TG; 175, Cholestrol: 116, LDL: 66, HDL: 22 * 09/25: c/w Metformin 500mg PO BID. Accucheck ACHS. RISS. Heart Healthy, Mod CHO diet. f/u HgbA1C, Lipid profile (5) Wasting generalized Status: Chronic Comment: * outbound sales specialist referral; ordered for calorie count (6) History of colon cancer Status: Chronic Comment: * [facility]25[facility]- f/u colon cancer hx; patient's heme-onc who he has not followed up with (7) Prophylactic measure Status: Acute Comment: * SCDs. * Heparin 5000U SC Q8h. * Pepcid 20mg PO BID * PT/OT eval * outbound sales specialist referral
[2016-09-27] MEDS: Sodium Chloride 0.9% 1,000 ML IV SCH ×2 (02:47→11:45)
[2016-09-27] MEDS: (Novolin R) Insulin Human Regular 100 units/ml vial SC SCH ×4 (07:48→22:05)
[2016-09-27 08:07] LABS: ALBUMIN 3.5 g/dL (3.5-5.0)
[2016-09-27 08:09] LABS: BASO # 0.1 K/uL (0.0-0.2); BASO % 0.7 % (0.0-2.0); EOS # 0.3 K/uL (0.0-0.7); EOS % 4.2 % (0.0-4.0); HEMOGLOBIN 11.8 g/dL (12.0-18.0); LYMPH # 1.5 K/uL (1.0-4.3); LYMPH % 19.3 % (20.0-40.0); MEAN CELL VOLUME 78.6 fL (80.0-94.0); MEAN CORPUSCULAR HEMOGLOBIN 25.9 pg (27.0-31.0); MEAN CORPUSCULAR HGB CONC 32.9 g/dL (33.0-37.0); MEAN PLATELET VOLUME 8.1 fL (7.2-11.7); MONO # 0.7 K/uL (0.0-0.8); MONO % 8.4 % (0.0-10.0); NEUT # 5.2 K/uL (1.8-7.0); NEUT % 67.4 % (50.0-75.0); NRBC % 0.1 % (0.0-2.0); RBC 4.56 Mil/uL (4.40-5.90); RED CELL DISTRIBUTION WIDTH 17.8 % (11.5-14.5); WHITE BLOOD COUNT 7.8 K/uL (4.8-10.8)
[2016-09-27 08:10] LABS: ALB/GLOB RATIO 0.9 (1.0-2.1); AST/SGOT 55 U/L (17-59); GFR AFRICAN-AMERICAN > 60; GFR NON-AFRICAN AMERICAN > 60
[2016-09-27 08:11] LABS: ALT/SGPT 60 U/L (21-72); BLOOD UREA NITROGEN 13 mg/dL (9-20); CALCIUM 8.8 mg/dl (8.6-10.4)
[2016-09-27] MEDS: Saccharomyces Boulardi 250 mg Cap PO SCH ×2 (09:48→17:13)
--- NOTE | 2016-09-27 13:34 | CARD ---
APPROVED REPORT EKG Measurement Heart [id number] <Conclusion> Normal sinus rhythm Right atrial enlargement Cannot rule out Anterior infarct, age undetermined Abnormal ECG
--- NOTE | 2016-09-27 15:00 | CP.PCM.CON ---
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 I am asked to see him for abnormal urine culture as he presented with weakness lightheadeness and loss of appetite. he appears emaciated secondary to his muscular disorder PMHx dermatomyositis, TIA/stroke, hypertension, hypothyroidism, diabetes, colon cancer, presenting to the ED complaining of weakness, lightheadness, and decreased appetite for past 4 days.. Patient also frequency in urination, denies dysuria, denies hematuira, and reports changed from normal flow to short streams. Patient reports he usually eats TV dinners, and but currently he is currently forcing himself to eat about 1-2 bites. He states that after 1-2 bites , he feels full. PMD: Dr. Maki GI: Dr. Layne PMHxx: dermatomyositis (dx at age 7), TIA/stroke, hypertension, hypothyroidism, diabetes, colon cancer (dx 2012) Surgical Hx: 2013- Colon cancer co-resection; lost 40lbs; muscle biopsy; prior hx of feeding tube Medications: metformin 500mg PO bid, Tradjenta 5mg once a day , enalapril 10mg PO BID Family Hx Mother; cancer unknown Allergies: denies Social Hx: denies drugs, denies alcohol consumption; lives by himself; lives in basement apartment; 3 cigars a day since age 24 Prior hospitalization: bleeding (February 2016)--> underwent endoscopic proc Review of Systems - Constitutional Constitutional: Anorexia, Fatigue, Weakness Additional comments: lightheadeness - EENT Eyes: absent: As Per HPI, Blind Spots, Blurred Vision, Change in Vision, Decreased Night Vision, Diplopia, Discharge, Dry Eye, Exophthalmos, Floaters, Irritation, Itchy Eyes, Loss of Peripheral Vision, Pain, Photophobia, Requires Corrective Lenses, Sees Flashes, Spots in Vision, Tunnel Vision, Other Visual Disturbances, Loss of Vision, Other Ears: absent: As Per HPI, Decreased Hearing, Ear Discharge, Ear Pain, Tinnitus, Abnormal Hearing, Disequilibrium, Dizziness, Other Nose/Mouth/Throat: absent: As Per HPI, Epistaxis, Nasal Congestion, Nasal Discharge, Nasal Obstruction, Nasal Trauma, Nose Pain, Post Nasal Drip, Sinus Pain, Sinus Pressure, Bleeding Gums, Change in Voice, Dental Pain, Dry Mouth, Dysphagia, Halitosis, Hoarsness, Lip Swelling, Mouth Lesions, Mouth Pain, Odynophagia, Sore Throat, Throat Swelling, Tongue Swelling, Facial Pain, Neck Pain, Neck Mass, Other - Cardiovascular Cardiovascular: absent: As Per HPI, Acrocyanosis, Chest Pain, Chest Pain at Rest , Chest Pain with Activity, Claudication, Diaphoresis, Dyspnea, Dyspnea on Exertion, Edema, Irregular Heart Rhythm, Pain Radiating to Arm/Neck/Jaw, Leg Edema, Leg Ulcers, Lightheadedness, Orthopnea, Palpitations, Paroxysmal Nocturnal Dyspnea, Pedal Edema, Radiating Pain, Rapid Heart Rate, Slow Heart Rate, Syncope, Other - Respiratory Respiratory: absent: As Per HPI, Cough, Dyspnea, Hemoptysis, Dyspnea on Exertion , Wheezing, Snoring, Stridor, Pain on Inspiration, Chest Congestion, Excessive Mucous Production, Change in Mucous Color, Pain with Coughing, Other - Gastrointestinal Gastrointestinal: Early Satiety. absent: As Per HPI, Abdominal Pain, Belching, Bloating, Change in Bowel Habits, Change in Stool Character, Coffee Ground Emesis, Constipation, Cramping, Diarrhea, Dyspepsia, Dysphagia, Excessive Flatus , Fecal Incontinence, Heartburn, Hematemesis, Hematochezia, Loose Stools, Melena , Nausea, Odynophagia, Temesmus, Vomiting, Other - Genitourinary Genitourinary: Urinary Frequency. absent: As Per HPI, Change in Urinary Stream , Difficulty Urinating, Dysuria, Flank Pain, Hematuria, Pyuria, Nocturia, Urinary Incontinence, Urinary Hesitance, Urinary Urgency, Voiding Freq/Small Amts, Freq UTI, Hx Renal/Bladder Calculi, Hx /Renal Surgery, Bladder Distension, Other - Neurological Neurological: Abnormal Movements Additional comments: has muscular disease of dermomyositis - Endocrine Endocrine: Fatigue. absent: As Per HPI, Change in Body Appearance, Change in Libido, Cold Intolorance, Deepening of Voice, Excessive Sweating, Flushing, Heat Intolorance, Increase in Ring/Shoe/Hat Size, Palpitations, Polydipsia, Polyphagia, Polyuria, Other Past Patient History - Past Medical History & Family History Past Medical History?: Yes - Past Social History Smoking Status: Smokes 3 Cigars/day Chewing Tobacco Use: No Cigar Use: No Alcohol: None Drugs: Denies Home Situation {Lives}: Alone - CARDIAC Hx Hypertension: Yes - PULMONARY Hx Respiratory Disorders: No - NEUROLOGICAL Hx Neurological Disorder: Yes HX Cerebrovascular Accident: Yes (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 GI Bleed= feb 2016 - GENITOURINARY/GYNECOLOGICAL Hx Genitourinary Disorders: No - PSYCHIATRIC Hx Substance Use: No - SURGICAL HISTORY Hx Surgeries: Yes Other/Comment: colon cancer surgery - ANESTHESIA Hx Anesthesia: Yes Hx Anesthesia Reactions: No Meds Allergies/Adverse Reactions: Allergies Allergy/AdvReac Type Severity Reaction Status Date / Time No Known Allergies Allergy Verified 09/25/16 13:02 - Medications Medications: Current Medications Enalapril Maleate (Vasotec) 10 mg PO Q12 [facility] Last Admin: 09/27/16 09:46 Dose: 10 mg Famotidine (Pepcid) 20 mg PO BID [facility] Last Admin: 09/27/16 09:46 Dose: 20 mg Heparin Sodium (Porcine) (Heparin) 5,000 units SC Q8 [facility] Last Admin: 09/27/16 14:08 Dose: 5,000 units Sodium Chloride (Sodium Chloride 0.9%) 1,000 mls @ 75 mls/hr IV .[id number] [facility] Last Admin: 09/27/16 11:45 Dose: Not Given Ceftriaxone Sodium 1 gm/ (Sodium Chloride) 100 mls @ 100 mls/hr IVPB Q24H [facility] Last Admin: 09/26/16 17:00 Dose: 100 mls/hr Insulin Human Regular (Novolin R) 0 unit SC ACHS [facility] PRN Reason: Protocol Last Admin: 09/27/16 12:30 Dose: Not Given Metformin HCl (Glucophage) 500 mg PO BID [facility] Last Admin: 09/27/16 09:45 Dose: 500 mg Saccharomyces Boulardii (Florastor) 250 mg PO BID [facility] Last Admin: 09/27/16 09:48 Dose: 250 mg Physical Exam - Constitutional Appears: No Acute Distress, Older Than Stated Age - Head Exam Head Exam: ATRAUMATIC, NORMOCEPHALIC - Eye Exam Eye Exam: Normal appearance Pupil Exam: NORMAL ACCOMODATION - ENT Exam ENT Exam: Mucous Membranes Moist - Neck Exam Neck exam: Positive for: Normal Inspection - Respiratory Exam Respiratory Exam: Clear to Auscultation Bilateral, NORMAL BREATHING PATTERN - Cardiovascular Exam Cardiovascular Exam: REGULAR RHYTHM, RRR. absent: Bradycardia, Tachycardia, Clicks, Diastolic murmur, Gallop, Irregular Rhythm, JVD, Rubs, +S1, +S2, +S4, Systolic Murmur - GI/Abdominal Exam GI & Abdominal Exam: Normal Bowel Sounds, Soft. absent: Bruit, Diminished Bowel Sounds, Distended, Firm, Guarding, Hernia, Hyperactive Bowel Sounds, Hypoactive Bowel Sounds, Mass, Organomegaly, Pulsatile Mass, Rebound, Rigid, Tenderness Additional comments: scar of previous surgery - Rectal Exam Additional comments: wears diaper - Extremities Exam Extremities exam: Positive for: normal inspection Results - Vital Signs Recent Vital Signs: Last Vital Signs Temp 98.2 F 09/27/16 08:58 Pulse 58 L 09/27/16 08:58 Resp 20 09/27/16 08:58 BP 149/83 09/27/16 09:46 Pulse Ox 96 09/27/16 08:58 - Labs Result Diagrams: 09/27/16 07:14 09/27/16 07:14 Labs: Laboratory Results - last 24 hr 09/26/16 09/26/16 09/27/16 16:12 22:07 06:28 WBC RBC Hgb Hct MCV MCH MCHC RDW Plt Count MPV Neut % (Auto) Lymph % (Auto) [place] % (Auto) Eos % (Auto) Baso % (Auto) Neut # Lymph # [place] # Eos # Baso # Sodium Potassium Chloride Carbon Dioxide Anion Gap BUN Creatinine Est GFR ( Amer) Est GFR (Non-Af Amer) POC Glucose (mg/dL) 110 112 H 84 Random Glucose Calcium Total Bilirubin AST ALT Alkaline Phosphatase Total Protein Albumin Globulin Albumin/Globulin Ratio Prostate Specific Ag 09/27/16 09/27/16 09/27/16 07:14 07:14 11:36 WBC 7.8 RBC 4.56 Hgb 11.8 L Hct 35.8 MCV 78.6 L MCH 25.9 L MCHC 32.9 L RDW 17.8 H Plt Count 257 MPV 8.1 Neut % (Auto) 67.4 Lymph % (Auto) 19.3 L [place] % (Auto) 8.4 Eos % (Auto) 4.2 H Baso % (Auto) 0.7 Neut # 5.2 Lymph # 1.5 [place] # 0.7 Eos # 0.3 Baso # 0.1 Sodium 137 Potassium 3.9 Chloride 103 Carbon Dioxide 26 Anion Gap 13 BUN 13 Creatinine 0.5 L Est GFR ( Amer) > 60 Est GFR (Non-Af Amer) > 60 POC Glucose (mg/dL) 130 H Random Glucose 89 Calcium 8.8 Total Bilirubin 0.6 AST 55 ALT 60 Alkaline Phosphatase 55 Total Protein 7.2 Albumin 3.5 Globulin 3.8 Albumin/Globulin Ratio 0.9 L Prostate Specific Ag 5.27 H Laboratory Results - last 72 hr 09/25/16 09/25/16 09/25/16 14:29 14:29 14:29 WBC 16.6 H D RBC 5.21 Hgb 13.4 D Hct 40.4 MCV 77.5 L MCH 25.7 L MCHC 33.1 RDW 18.1 H Plt Count 252 MPV 8.0 Neut % (Auto) 87.2 H Lymph % (Auto) 6.7 L [place] % (Auto) 5.8 Eos % (Auto) 0.0 Baso % (Auto) 0.3 Neut # 14.5 H Lymph # 1.1 [place] # 1.0 H Eos # 0.0 Baso # 0.0 Neutrophils % (Manual) 87 H Lymphocytes % (Manual) 7 L Monocytes % (Manual) 6 Platelet Estimate Normal Anisocytosis (manual) Slight Ovalocytes Slight PT 13.3 H INR 1.2 APTT 29 pO2 VBG pH VBG pCO2 VBG HCO3 VBG Total CO2 VBG O2 Sat (Calc) VBG Base Excess VBG Potassium Glucose Lactate Sodium 132 Potassium 4.1 Chloride 92 L Carbon Dioxide 22 Anion Gap 22 H BUN 18 Creatinine 0.5 L Est GFR ( Amer) > 60 Est GFR (Non-Af Amer) > 60 POC Glucose (mg/dL) Random Glucose 185 H Hemoglobin A1c Calcium 9.5 Magnesium Total Bilirubin 1.0 AST 36 ALT 47 Alkaline Phosphatase 65 Troponin I < 0.0120 Total Protein 9.7 H Albumin 4.3 Globulin 5.4 H Albumin/Globulin Ratio 0.8 L Triglycerides Cholesterol LDL Cholesterol Direct HDL Cholesterol Lipase 108 Prostate Specific Ag Venous Blood Potassium Urine Color Urine Clarity Urine pH Ur Specific [place] Urine Protein Urine Glucose (UA) Urine Ketones Urine Blood Urine Nitrate Urine Bilirubin Urine Urobilinogen Ur Leukocyte Esterase Urine WBC (Auto) Urine RBC (Auto) Ur Squamous Epith Cells Urine Bacteria Hyaline Casts 09/25/16 09/25/16 09/25/16 15:04 15:53 20:58 WBC RBC Hgb Hct MCV MCH MCHC RDW Plt Count MPV Neut % (Auto) Lymph % (Auto) [place] % (Auto) Eos % (Auto) Baso % (Auto) Neut # Lymph # [place] # Eos # Baso # Neutrophils % (Manual) Lymphocytes % (Manual) Monocytes % (Manual) Platelet Estimate Anisocytosis (manual) Ovalocytes PT INR APTT pO2 40 35 VBG pH 7.46 H 7.43 VBG pCO2 37 L 41 VBG HCO3 26.4 26.2 VBG Total CO2 27.4 28.5 H VBG O2 Sat (Calc) 83.3 H 79.6 H VBG Base Excess 2.5 H 2.6 H VBG Potassium 4.1 3.9 Glucose 150 H 110 Lactate 2.4 H 1.6 Sodium 134.0 136.0 Potassium Chloride 100.0 100.0 Carbon Dioxide Anion Gap BUN Creatinine Est GFR ( Amer) Est GFR (Non-Af Amer) POC Glucose (mg/dL) Random Glucose Hemoglobin A1c Calcium Magnesium Total Bilirubin AST ALT Alkaline Phosphatase Troponin I Total Protein Albumin Globulin Albumin/Globulin Ratio Triglycerides Cholesterol LDL Cholesterol Direct HDL Cholesterol Lipase Prostate Specific Ag Venous Blood Potassium 4.1 3.9 Urine Color Anca Urine Clarity Hazy Urine pH 5.0 Ur Specific [place] 1.023 Urine Protein 2+ H Urine Glucose (UA) 1+ H Urine Ketones Trace Urine Blood 1+ H Urine Nitrate Positive H Urine Bilirubin Negative Urine Urobilinogen Normal Ur Leukocyte Esterase 2+ H Urine WBC (Auto) 77 H Urine RBC (Auto) 9 H Ur Squamous Epith Cells 2 Urine Bacteria Few H Hyaline Casts 0-2 09/25/16 09/26/16 09/26/16 21:45 06:11 08:05 WBC 10.2 RBC 4.67 Hgb 12.1 Hct 36.2 MCV 77.6 L MCH 26.0 L MCHC 33.5 RDW 17.8 H Plt Count 225 MPV 8.3 Neut % (Auto) 75.9 H Lymph % (Auto) 13.9 L [place] % (Auto) 6.2 Eos % (Auto) 3.5 Baso % (Auto) 0.5 Neut # 7.8 H Lymph # 1.4 [place] # 0.6 Eos # 0.4 Baso # 0.1 Neutrophils % (Manual) Lymphocytes % (Manual) Monocytes % (Manual) Platelet Estimate Anisocytosis (manual) Ovalocytes PT INR APTT pO2 VBG pH VBG pCO2 VBG HCO3 VBG Total CO2 VBG O2 Sat (Calc) VBG Base Excess VBG Potassium Glucose Lactate Sodium Potassium Chloride Carbon Dioxide Anion Gap BUN Creatinine Est GFR ( Amer) Est GFR (Non-Af Amer) POC Glucose (mg/dL) 92 95 Random Glucose Hemoglobin A1c Calcium Magnesium Total Bilirubin AST ALT Alkaline Phosphatase Troponin I Total Protein Albumin Globulin Albumin/Globulin Ratio Triglycerides Cholesterol LDL Cholesterol Direct HDL Cholesterol Lipase Prostate Specific Ag Venous Blood Potassium Urine Color Urine Clarity Urine pH Ur Specific [place] Urine Protein Urine Glucose (UA) Urine Ketones Urine Blood Urine Nitrate Urine Bilirubin Urine Urobilinogen Ur Leukocyte Esterase Urine WBC (Auto) Urine RBC (Auto) Ur Squamous Epith Cells Urine Bacteria Hyaline Casts 09/26/16 09/26/16 09/26/16 08:05 08:05 12:12 WBC RBC Hgb Hct MCV MCH MCHC RDW Plt Count MPV Neut % (Auto) Lymph % (Auto) [place] % (Auto) Eos % (Auto) Baso % (Auto) Neut # Lymph # [place] # Eos # Baso # Neutrophils % (Manual) Lymphocytes % (Manual) Monocytes % (Manual) Platelet Estimate Anisocytosis (manual) Ovalocytes PT INR APTT pO2 VBG pH VBG pCO2 VBG HCO3 VBG Total CO2 VBG O2 Sat (Calc) VBG Base Excess VBG Potassium Glucose Lactate Sodium 135 Potassium 3.6 Chloride 98 Carbon Dioxide 25 Anion Gap 17 BUN 15 Creatinine 0.5 L Est GFR ( Amer) > 60 Est GFR (Non-Af Amer) > 60 POC Glucose (mg/dL) 115 H Random Glucose 94 Hemoglobin A1c 7.4 H D Calcium 8.6 Magnesium 1.7 Total Bilirubin 0.7 AST 41 ALT 43 Alkaline Phosphatase 70 Troponin I Total Protein 8.0 Albumin 3.7 Globulin 4.4 H Albumin/Globulin Ratio 0.8 L Triglycerides 175 H Cholesterol 116 LDL Cholesterol Direct 66 HDL Cholesterol 22 L Lipase Prostate Specific Ag Venous Blood Potassium Urine Color Urine Clarity Urine pH Ur Specific [place] Urine Protein Urine Glucose (UA) Urine Ketones Urine Blood Urine Nitrate Urine Bilirubin Urine Urobilinogen Ur Leukocyte Esterase Urine WBC (Auto) Urine RBC (Auto) Ur Squamous Epith Cells Urine Bacteria Hyaline Casts 09/26/16 09/26/16 09/27/16 16:12 22:07 06:28 WBC RBC Hgb Hct MCV MCH MCHC RDW Plt Count MPV Neut % (Auto) Lymph % (Auto) [place] % (Auto) Eos % (Auto) Baso % (Auto) Neut # Lymph # [place] # Eos # Baso # Neutrophils % (Manual) Lymphocytes % (Manual) Monocytes % (Manual) Platelet Estimate Anisocytosis (manual) Ovalocytes PT INR APTT pO2 VBG pH VBG pCO2 VBG HCO3 VBG Total CO2 VBG O2 Sat (Calc) VBG Base Excess VBG Potassium Glucose Lactate Sodium Potassium Chloride Carbon Dioxide Anion Gap BUN Creatinine Est GFR ( Amer) Est GFR (Non-Af Amer) POC Glucose (mg/dL) 110 112 H 84 Random Glucose Hemoglobin A1c Calcium Magnesium Total Bilirubin AST ALT Alkaline Phosphatase Troponin I Total Protein Albumin Globulin Albumin/Globulin Ratio Triglycerides Cholesterol LDL Cholesterol Direct HDL Cholesterol Lipase Prostate Specific Ag Venous Blood Potassium Urine Color Urine Clarity Urine pH Ur Specific [place] Urine Protein Urine Glucose (UA) Urine Ketones Urine Blood Urine Nitrate Urine Bilirubin Urine Urobilinogen Ur Leukocyte Esterase Urine WBC (Auto) Urine RBC (Auto) Ur Squamous Epith Cells Urine Bacteria Hyaline Casts 09/27/16 09/27/16 09/27/16 07:14 07:14 11:36 WBC 7.8 RBC 4.56 Hgb 11.8 L Hct 35.8 MCV 78.6 L MCH 25.9 L MCHC 32.9 L RDW 17.8 H Plt Count 257 MPV 8.1 Neut % (Auto) 67.4 Lymph % (Auto) 19.3 L [place] % (Auto) 8.4 Eos % (Auto) 4.2 H Baso % (Auto) 0.7 Neut # 5.2 Lymph # 1.5 [place] # 0.7 Eos # 0.3 Baso # 0.1 Neutrophils % (Manual) Lymphocytes % (Manual) Monocytes % (Manual) Platelet Estimate Anisocytosis (manual) Ovalocytes PT INR APTT pO2 VBG pH VBG pCO2 VBG HCO3 VBG Total CO2 VBG O2 Sat (Calc) VBG Base Excess VBG Potassium Glucose Lactate Sodium 137 Potassium 3.9 Chloride 103 Carbon Dioxide 26 Anion Gap 13 BUN 13 Creatinine 0.5 L Est GFR ( Amer) > 60 Est GFR (Non-Af Amer) > 60 POC Glucose (mg/dL) 130 H Random Glucose 89 Hemoglobin A1c Calcium 8.8 Magnesium Total Bilirubin 0.6 AST 55 ALT 60 Alkaline Phosphatase 55 Troponin I Total Protein 7.2 Albumin 3.5 Globulin 3.8 Albumin/Globulin Ratio 0.9 L Triglycerides Cholesterol LDL Cholesterol Direct HDL Cholesterol Lipase Prostate Specific Ag 5.27 H Venous Blood Potassium Urine Color Urine Clarity Urine pH Ur Specific [place] Urine Protein Urine Glucose (UA) Urine Ketones Urine Blood Urine Nitrate Urine Bilirubin Urine Urobilinogen Ur Leukocyte Esterase Urine WBC (Auto) Urine RBC (Auto) Ur Squamous Epith Cells Urine Bacteria Hyaline Casts Laboratory Results - last 72 hr 09/25/16 09/25/16 09/25/16 14:29 14:29 14:29 WBC 16.6 H D RBC 5.21 Hgb 13.4 D Hct 40.4 MCV 77.5 L MCH 25.7 L MCHC 33.1 RDW 18.1 H Plt Count 252 MPV 8.0 Neut % (Auto) 87.2 H Lymph % (Auto) 6.7 L [place] % (Auto) 5.8 Eos % (Auto) 0.0 Baso % (Auto) 0.3 Neut # 14.5 H Lymph # 1.1 [place] # 1.0 H Eos # 0.0 Baso # 0.0 Neutrophils % (Manual) 87 H Lymphocytes % (Manual) 7 L Monocytes % (Manual) 6 Platelet Estimate Normal Anisocytosis (manual) Slight Ovalocytes Slight PT 13.3 H INR 1.2 APTT 29 pO2 VBG pH VBG pCO2 VBG HCO3 VBG Total CO2 VBG O2 Sat (Calc) VBG Base Excess VBG Potassium Glucose Lactate Sodium 132 Potassium 4.1 Chloride 92 L Carbon Dioxide 22 Anion Gap 22 H BUN 18 Creatinine 0.5 L Est GFR ( Amer) > 60 Est GFR (Non-Af Amer) > 60 POC Glucose (mg/dL) Random Glucose 185 H Hemoglobin A1c Calcium 9.5 Magnesium Total Bilirubin 1.0 AST 36 ALT 47 Alkaline Phosphatase 65 Troponin I < 0.0120 Total Protein 9.7 H Albumin 4.3 Globulin 5.4 H Albumin/Globulin Ratio 0.8 L Triglycerides Cholesterol LDL Cholesterol Direct HDL Cholesterol Lipase 108 Prostate Specific Ag Venous Blood Potassium Urine Color Urine Clarity Urine pH Ur Specific [place] Urine Protein Urine Glucose (UA) Urine Ketones Urine Blood Urine Nitrate Urine Bilirubin Urine Urobilinogen Ur Leukocyte Esterase Urine WBC (Auto) Urine RBC (Auto) Ur Squamous Epith Cells Urine Bacteria Hyaline Casts 09/25/16 09/25/16 09/25/16 15:04 15:53 20:58 WBC RBC Hgb Hct MCV MCH MCHC RDW Plt Count MPV Neut % (Auto) Lymph % (Auto) [place] % (Auto) Eos % (Auto) Baso % (Auto) Neut # Lymph # [place] # Eos # Baso # Neutrophils % (Manual) Lymphocytes % (Manual) Monocytes % (Manual) Platelet Estimate Anisocytosis (manual) Ovalocytes PT INR APTT pO2 40 35 VBG pH 7.46 H 7.43 VBG pCO2 37 L 41 VBG HCO3 26.4 26.2 VBG Total CO2 27.4 28.5 H VBG O2 Sat (Calc) 83.3 H 79.6 H VBG Base Excess 2.5 H 2.6 H VBG Potassium 4.1 3.9 Glucose 150 H 110 Lactate 2.4 H 1.6 Sodium 134.0 136.0 Potassium Chloride 100.0 100.0 Carbon Dioxide Anion Gap BUN Creatinine Est GFR ( Amer) Est GFR (Non-Af Amer) POC Glucose (mg/dL) Random Glucose Hemoglobin A1c Calcium Magnesium Total Bilirubin AST ALT Alkaline Phosphatase Troponin I Total Protein Albumin Globulin Albumin/Globulin Ratio Triglycerides Cholesterol LDL Cholesterol Direct HDL Cholesterol Lipase Prostate Specific Ag Venous Blood Potassium 4.1 3.9 Urine Color Anca Urine Clarity Hazy Urine pH 5.0 Ur Specific [place] 1.023 Urine Protein 2+ H Urine Glucose (UA) 1+ H Urine Ketones Trace Urine Blood 1+ H Urine Nitrate Positive H Urine Bilirubin Negative Urine Urobilinogen Normal Ur Leukocyte Esterase 2+ H Urine WBC (Auto) 77 H Urine RBC (Auto) 9 H Ur Squamous Epith Cells 2 Urine Bacteria Few H Hyaline Casts 0-2 09/25/16 09/26/16 09/26/16 21:45 06:11 08:05 WBC 10.2 RBC 4.67 Hgb 12.1 Hct 36.2 MCV 77.6 L MCH 26.0 L MCHC 33.5 RDW 17.8 H Plt Count 225 MPV 8.3 Neut % (Auto) 75.9 H Lymph % (Auto) 13.9 L [place] % (Auto) 6.2 Eos % (Auto) 3.5 Baso % (Auto) 0.5 Neut # 7.8 H Lymph # 1.4 [place] # 0.6 Eos # 0.4 Baso # 0.1 Neutrophils % (Manual) Lymphocytes % (Manual) Monocytes % (Manual) Platelet Estimate Anisocytosis (manual) Ovalocytes PT INR APTT pO2 VBG pH VBG pCO2 VBG HCO3 VBG Total CO2 VBG O2 Sat (Calc) VBG Base Excess VBG Potassium Glucose Lactate Sodium Potassium Chloride Carbon Dioxide Anion Gap BUN Creatinine Est GFR ( Amer) Est GFR (Non-Af Amer) POC Glucose (mg/dL) 92 95 Random Glucose Hemoglobin A1c Calcium Magnesium Total Bilirubin AST ALT Alkaline Phosphatase Troponin I Total Protein Albumin Globulin Albumin/Globulin Ratio Triglycerides Cholesterol LDL Cholesterol Direct HDL Cholesterol Lipase Prostate Specific Ag Venous Blood Potassium Urine Color Urine Clarity Urine pH Ur Specific [place] Urine Protein Urine Glucose (UA) Urine Ketones Urine Blood Urine Nitrate Urine Bilirubin Urine Urobilinogen Ur Leukocyte Esterase Urine WBC (Auto) Urine RBC (Auto) Ur Squamous Epith Cells Urine Bacteria Hyaline Casts 09/26/16 09/26/16 09/26/16 08:05 08:05 12:12 WBC RBC Hgb Hct MCV MCH MCHC RDW Plt Count MPV Neut % (Auto) Lymph % (Auto) [place] % (Auto) Eos % (Auto) Baso % (Auto) Neut # Lymph # [place] # Eos # Baso # Neutrophils % (Manual) Lymphocytes % (Manual) Monocytes % (Manual) Platelet Estimate Anisocytosis (manual) Ovalocytes PT INR APTT pO2 VBG pH VBG pCO2 VBG HCO3 VBG Total CO2 VBG O2 Sat (Calc) VBG Base Excess VBG Potassium Glucose Lactate Sodium 135 Potassium 3.6 Chloride 98 Carbon Dioxide 25 Anion Gap 17 BUN 15 Creatinine 0.5 L Est GFR ( Amer) > 60 Est GFR (Non-Af Amer) > 60 POC Glucose (mg/dL) 115 H Random Glucose 94 Hemoglobin A1c 7.4 H D Calcium 8.6 Magnesium 1.7 Total Bilirubin 0.7 AST 41 ALT 43 Alkaline Phosphatase 70 Troponin I Total Protein 8.0 Albumin 3.7 Globulin 4.4 H Albumin/Globulin Ratio 0.8 L Triglycerides 175 H Cholesterol 116 LDL Cholesterol Direct 66 HDL Cholesterol 22 L Lipase Prostate Specific Ag Venous Blood Potassium Urine Color Urine Clarity Urine pH Ur Specific [place] Urine Protein Urine Glucose (UA) Urine Ketones Urine Blood Urine Nitrate Urine Bilirubin Urine Urobilinogen Ur Leukocyte Esterase Urine WBC (Auto) Urine RBC (Auto) Ur Squamous Epith Cells Urine Bacteria Hyaline Casts 09/26/16 09/26/16 09/27/16 16:12 22:07 06:28 WBC RBC Hgb Hct MCV MCH MCHC RDW Plt Count MPV Neut % (Auto) Lymph % (Auto) [place] % (Auto) Eos % (Auto) Baso % (Auto) Neut # Lymph # [place] # Eos # Baso # Neutrophils % (Manual) Lymphocytes % (Manual) Monocytes % (Manual) Platelet Estimate Anisocytosis (manual) Ovalocytes PT INR APTT pO2 VBG pH VBG pCO2 VBG HCO3 VBG Total CO2 VBG O2 Sat (Calc) VBG Base Excess VBG Potassium Glucose Lactate Sodium Potassium Chloride Carbon Dioxide Anion Gap BUN Creatinine Est GFR ( Amer) Est GFR (Non-Af Amer) POC Glucose (mg/dL) 110 112 H 84 Random Glucose Hemoglobin A1c Calcium Magnesium Total Bilirubin AST ALT Alkaline Phosphatase Troponin I Total Protein Albumin Globulin Albumin/Globulin Ratio Triglycerides Cholesterol LDL Cholesterol Direct HDL Cholesterol Lipase Prostate Specific Ag Venous Blood Potassium Urine Color Urine Clarity Urine pH Ur Specific [place] Urine Protein Urine Glucose (UA) Urine Ketones Urine Blood Urine Nitrate Urine Bilirubin Urine Urobilinogen Ur Leukocyte Esterase Urine WBC (Auto) Urine RBC (Auto) Ur Squamous Epith Cells Urine Bacteria Hyaline Casts 09/27/16 09/27/16 09/27/16 07:14 07:14 11:36 WBC 7.8 RBC 4.56 Hgb 11.8 L Hct 35.8 MCV 78.6 L MCH 25.9 L MCHC 32.9 L RDW 17.8 H Plt Count 257 MPV 8.1 Neut % (Auto) 67.4 Lymph % (Auto) 19.3 L [place] % (Auto) 8.4 Eos % (Auto) 4.2 H Baso % (Auto) 0.7 Neut # 5.2 Lymph # 1.5 [place] # 0.7 Eos # 0.3 Baso # 0.1 Neutrophils % (Manual) Lymphocytes % (Manual) Monocytes % (Manual) Platelet Estimate Anisocytosis (manual) Ovalocytes PT INR APTT pO2 VBG pH VBG pCO2 VBG HCO3 VBG Total CO2 VBG O2 Sat (Calc) VBG Base Excess VBG Potassium Glucose Lactate Sodium 137 Potassium 3.9 Chloride 103 Carbon Dioxide 26 Anion Gap 13 BUN 13 Creatinine 0.5 L Est GFR ( Amer) > 60 Est GFR (Non-Af Amer) > 60 POC Glucose (mg/dL) 130 H Random Glucose 89 Hemoglobin A1c Calcium 8.8 Magnesium Total Bilirubin 0.6 AST 55 ALT 60 Alkaline Phosphatase 55 Troponin I Total Protein 7.2 Albumin 3.5 Globulin 3.8 Albumin/Globulin Ratio 0.9 L Triglycerides Cholesterol LDL Cholesterol Direct HDL Cholesterol Lipase Prostate Specific Ag 5.27 H Venous Blood Potassium Urine Color Urine Clarity Urine pH Ur Specific [place] Urine Protein Urine Glucose (UA) Urine Ketones Urine Blood Urine Nitrate Urine Bilirubin Urine Urobilinogen Ur Leukocyte Esterase Urine WBC (Auto) Urine RBC (Auto) Ur Squamous Epith Cells Urine Bacteria Hyaline Casts 09/27/16 09/27/16 16:07 21:30 WBC RBC Hgb Hct MCV MCH MCHC RDW Plt Count MPV Neut % (Auto) Lymph % (Auto) [place] % (Auto) Eos % (Auto) Baso % (Auto) Neut # Lymph # [place] # Eos # Baso # Neutrophils % (Manual) Lymphocytes % (Manual) Monocytes % (Manual) Platelet Estimate Anisocytosis (manual) Ovalocytes PT INR APTT pO2 VBG pH VBG pCO2 VBG HCO3 VBG Total CO2 VBG O2 Sat (Calc) VBG Base Excess VBG Potassium Glucose Lactate Sodium Potassium Chloride Carbon Dioxide Anion Gap BUN Creatinine Est GFR ( Amer) Est GFR (Non-Af Amer) POC Glucose (mg/dL) 118 H 133 H Random Glucose Hemoglobin A1c Calcium Magnesium Total Bilirubin AST ALT Alkaline Phosphatase Troponin I Total Protein Albumin Globulin Albumin/Globulin Ratio Triglycerides Cholesterol LDL Cholesterol Direct HDL Cholesterol Lipase Prostate Specific Ag Venous Blood Potassium Urine Color Urine Clarity Urine pH Ur Specific [place] Urine Protein Urine Glucose (UA) Urine Ketones Urine Blood Urine Nitrate Urine Bilirubin Urine Urobilinogen Ur Leukocyte Esterase Urine WBC (Auto) Urine RBC (Auto) Ur Squamous Epith Cells Urine Bacteria Hyaline Casts Assessment & Plan (1) Cystitis Assessment and Plan: patient has ecoli and staph in urine and by ctscan has prostate enlargement and cystitis he is waiting to be assessed by The urologist and also has nodules in lung and in the kidney should r/o mailgnancy his culture organisms are senstive to cipro hence will continue same. blood cultures to be checked and also Echo in view of staph will be needed to r/o endocarditis Status: Acute (2) History of colon cancer Status: Acute (3) UTI (urinary tract infection) Status: Acute (4) Diabetes mellitus Status: Acute
--- NOTE | 2016-09-27 15:54 | CP.PCM.PN ---
<Ish Sheppard R - Last Filed: 09/27/16 18:56> Subjective - Date & Time of Evaluation Date of Evaluation: 09/27/16 Time of Evaluation: 07:15 - Subjective Subjective: Patient was seen and examined at bedside. Patient was not in acute distress. Patient stated that he was able to eat his entire breakfast this morning, an improvement in appetite since yesterday. He also complained of short urinary streams. He denied fever, dysuria, chest pain, abdominal pain, leg pain, headache. Objective - Vital Signs/Intake and Output Vital Signs (last 24 hours): Temp Pulse Resp BP Pulse Ox 98.2 F 58 L 20 149/83 96 09/27/16 08:58 09/27/16 08:58 09/27/16 08:58 09/27/16 09:46 09/27/16 08:58 Intake and Output: 09/27/16 09/27/16 06:59 18:59 Intake Total 1590 Balance 1590 - Medications Medications: Current Medications Enalapril Maleate (Vasotec) 10 mg PO Q12 [facility] Last Admin: 09/27/16 09:46 Dose: 10 mg Famotidine (Pepcid) 20 mg PO BID [facility] Last Admin: 09/27/16 09:46 Dose: 20 mg Heparin Sodium (Porcine) (Heparin) 5,000 units SC Q8 [facility] Last Admin: 09/27/16 14:08 Dose: 5,000 units Sodium Chloride (Sodium Chloride 0.9%) 1,000 mls @ 75 mls/hr IV .[id number] [facility] Last Admin: 09/27/16 11:45 Dose: Not Given Ceftriaxone Sodium 1 gm/ (Sodium Chloride) 100 mls @ 100 mls/hr IVPB Q24H [facility] Last Admin: 09/26/16 17:00 Dose: 100 mls/hr Insulin Human Regular (Novolin R) 0 unit SC ACHS [facility] PRN Reason: Protocol Last Admin: 09/27/16 12:30 Dose: Not Given Metformin HCl (Glucophage) 500 mg PO BID [facility] Last Admin: 09/27/16 09:45 Dose: 500 mg Saccharomyces Boulardii (Florastor) 250 mg PO BID [facility] Last Admin: 09/27/16 09:48 Dose: 250 mg - Labs Labs: 09/27/16 07:14 09/27/16 07:14 PT 13.3 SECONDS (9.7-12.2) H 09/25/16 14:29 INR 1.2 09/25/16 14:29 APTT 29 SECONDS (21-34) 09/25/16 14:29 Assessment and Plan - Assessment and Plan (Free Text) Assessment: (1) Sepsis Status: Acute Comment: * 09/26: white count improved; f/u urine culture * 09/25: Criteria: Code Sepsis called. HR: 92. WBC 16.6, Neutr % 87.2. Lactate 2.4-->1.6 Source: UTI- UA LE 2+, Nitrate positive, WBC 77. * Patient started on IV fluids. * discontinued Started on Ceftriaxone 1gm Q24h (active since 09/25/16). * 09/27: started ciprofloxacin 400mg IV q12 * Florastor 250mg PO BID * Blood cultures (09/25/16): no growth after 24hours X2 * Urine culture (09/25/16): Staph aureus; gram negative rip-->awaiting final culture * CT Abdomen/Pelvis CT (IV contrast only)- Thick-walled urinary bladder which may represent an underlying cystitis. Prominent and enlarged prostate gland measuring 6.0x 4.3 cm with thickened nodular calcification. Mild thickening of descending sigmoid colon which my represent an underlying mild colitis. 8.4mm pulmonary nodule seen within the right middle lobe. Atelectasis within lingula and biateral lung bases. Fatty liver. (Please see full report) (2) UTI (urinary tract infection) Status: Acute Comment: 09/27: Final -> urine culture positive for ecoli and staph aureus * 09/25: See Sepsis. f/u urine culture (3) Urinary hesitancy Status: Acute Comment: 09/27: prostate specific Ag 5.27 * 09/26 Pending PSA; possible may need eval if hesistancy does not improve; given enlarged prostate noted on CT scan * 09/25: CT Abdomen/Pelvis CT- Thick-walled urinary bladder which may represent an underlying cystitis. Prominent and enlarged prostate gland measuring 6.0x 4.3 cm with thickened nodular calcification. Mild thickening of descending sigmoid colon which my represent an underlying mild colitis. 8.4mm pulmonary nodule seen within the right middle lobe. Atelectasis within lingula and bilateral lung bases. Fatty liver. (PLease see full report). * f/u PSA (Free/ total) (4) Diabetes mellitus Status: Chronic Comment: * 09/26: Hgba1c: 7.4; c/w Metformin 500mg PO BID; Lipid Panel: TG; 175, Cholestrol: 116, LDL: 66, HDL: 22 * 09/25: c/w Metformin 500mg PO BID. Accucheck ACHS. RISS. Heart Healthy, Mod CHO diet. f/u HgbA1C, Lipid profile (5) Wasting generalized Status: Chronic Comment: * catcher plug referral; ordered for calorie count (6) History of colon cancer Status: Chronic Comment: * 09/25: Consult [facility]- Dr. Pedro- f/u colon cancer hx; patient's heme-onc who he has not followed up with * 09/27: palliative care consult, Dr Parker (7) Prophylactic measure Status: Acute Comment: * SCDs. * Heparin 5000U SC Q8h. * Pepcid 20mg PO BID * PT/OT eval * catcher plug referral <Patrick Carlisle - Last Filed: 09/27/16 21:23> Objective - Vital Signs/Intake and Output Vital Signs (last 24 hours): Temp Pulse Resp BP Pulse Ox 98.3 F 63 20 135/70 98 09/27/16 16:00 09/27/16 16:00 09/27/16 16:00 09/27/16 16:00 09/27/16 16:00 Intake and Output: 09/27/16 09/28/16 18:59 06:59 Intake Total 600 Output Total 600 Balance 0 - Medications Medications: Current Medications Enalapril Maleate (Vasotec) 10 mg PO Q12 [facility] Last Admin: 09/27/16 09:46 Dose: 10 mg Famotidine (Pepcid) 20 mg PO BID [facility] Last Admin: 09/27/16 17:13 Dose: 20 mg Heparin Sodium (Porcine) (Heparin) 5,000 units SC Q8 [facility] Last Admin: 09/27/16 14:08 Dose: 5,000 units Sodium Chloride (Sodium Chloride 0.9%) 1,000 mls @ 75 mls/hr IV .[id number] [facility] Last Admin: 09/27/16 11:45 Dose: Not Given Ciprofloxacin (Cipro 400mg/200ml Dsw) 400 mg in 200 mls @ 133 mls/hr IVPB Q12H [facility] Insulin Human Regular (Novolin R) 0 unit SC ACHS [facility] PRN Reason: Protocol Last Admin: 09/27/16 17:11 Dose: Not Given Metformin HCl (Glucophage) 500 mg PO BID [facility] Last Admin: 09/27/16 17:13 Dose: 500 mg Saccharomyces Boulardii (Florastor) 250 mg PO BID [facility] Last Admin: 09/27/16 17:13 Dose: 250 mg - Labs Labs: 09/27/16 07:14 09/27/16 07:14 PT 13.3 SECONDS (9.7-12.2) H 09/25/16 14:29 INR 1.2 09/25/16 14:29 APTT 29 SECONDS (21-34) 09/25/16 14:29 Attending/Attestation - Attestation I have personally seen and examined this patient.: Yes I have fully participated in the care of the patient.: Yes I have reviewed all pertinent clinical information, including history, physical exam and plan: Yes Notes (Text): 09/27/16 21:21 Patient was seen and examined at 6:45 PM 09/27/16 History, Exam, and Assessment and Plan were thoroughly gone over with the Resident. Ceftriaxone was discontinued and changed to Ciprofloxacin 400 mg IV Q12H considering the Urine Culture + for E. coli and Staph aureus both of which are sensitive to Ciprofloxacin. Patrick Carlisle D.O.
[2016-09-27] MEDS: Ciprofloxacin 400mg/200ml D5W 400 MG/200 ML BAG IVPB SCH (20:00)
[2016-09-27 23:36] LABS: TOTAL PSA 7.2 ng/mL (<=4.0)
[2016-09-28 07:29] LABS: BASO # 0.1 K/uL (0.0-0.2); BASO % 1.1 % (0.0-2.0); EOS # 0.3 K/uL (0.0-0.7); EOS % 5.2 % (0.0-4.0); HEMOGLOBIN 11.7 g/dL (12.0-18.0); LYMPH # 1.4 K/uL (1.0-4.3); LYMPH % 22.5 % (20.0-40.0); MEAN CELL VOLUME 77.7 fL (80.0-94.0); MEAN CORPUSCULAR HEMOGLOBIN 26.3 pg (27.0-31.0); MEAN CORPUSCULAR HGB CONC 33.8 g/dL (33.0-37.0); MEAN PLATELET VOLUME 7.9 fL (7.2-11.7); MONO # 0.6 K/uL (0.0-0.8); MONO % 9.4 % (0.0-10.0); NEUT # 3.8 K/uL (1.8-7.0); NEUT % 61.8 % (50.0-75.0); RBC 4.44 Mil/uL (4.40-5.90); RED CELL DISTRIBUTION WIDTH 17.5 % (11.5-14.5); WHITE BLOOD COUNT 6.2 K/uL (4.8-10.8)
[2016-09-28] MEDS: Ciprofloxacin 400mg/200ml D5W 400 MG/200 ML BAG IVPB SCH ×2 (07:32→18:02)
[2016-09-28] MEDS: (Novolin R) Insulin Human Regular 100 units/ml vial SC SCH ×4 (07:46→22:07)
[2016-09-28 07:48] LABS: ALBUMIN 3.4 g/dL (3.5-5.0)
[2016-09-28 07:51] LABS: ALB/GLOB RATIO 0.9 (1.0-2.1); AST/SGOT 63 U/L (17-59); BLOOD UREA NITROGEN 10 mg/dL (9-20); GFR AFRICAN-AMERICAN > 60; GFR NON-AFRICAN AMERICAN > 60
[2016-09-28 07:52] LABS: ALT/SGPT 69 U/L (21-72); CALCIUM 8.6 mg/dl (8.6-10.4)
[2016-09-28] MEDS: Saccharomyces Boulardi 250 mg Cap PO SCH ×2 (10:17→17:42)
--- NOTE | 2016-09-28 10:25 | CP.PCM.PN ---
<Ish Sheppard R - Last Filed: 09/28/16 18:11> Subjective - Date & Time of Evaluation Date of Evaluation: 09/28/16 Time of Evaluation: 09:15 - Subjective Subjective: Patient was seen and examined at bedside. Patient states he's currently feeling better. He states that he was able to tolerate food well yesterday, including all of his breakfast and most of his lunch & dinner. He feels that his appetite has improved and that he should be able to consume his breakfast today without any issue. Patient agrees with current plan and management. Denies any dysuria, fever, chills, chest pain, SOB, n/v/d, abdominal pain, or leg pain. No other complaints are noted at this time. Objective - Vital Signs/Intake and Output Vital Signs (last 24 hours): Temp Pulse Resp BP Pulse Ox 98.5 F 56 L 20 127/72 96 09/28/16 07:00 09/28/16 07:00 09/28/16 07:00 09/28/16 10:17 09/28/16 07:00 Intake and Output: 09/28/16 09/28/16 06:59 18:59 Intake Total 720 Output Total 675 Balance 45 - Medications Medications: Current Medications Enalapril Maleate (Vasotec) 10 mg PO Q12 [facility] Last Admin: 09/28/16 10:17 Dose: 10 mg Famotidine (Pepcid) 20 mg PO BID [facility] Last Admin: 09/28/16 10:17 Dose: 20 mg Heparin Sodium (Porcine) (Heparin) 5,000 units SC Q8 [facility] Last Admin: 09/28/16 06:46 Dose: 5,000 units Sodium Chloride (Sodium Chloride 0.9%) 1,000 mls @ 75 mls/hr IV .[id number] [facility] Last Admin: 09/27/16 11:45 Dose: Not Given Ciprofloxacin (Cipro 400mg/200ml Dsw) 400 mg in 200 mls @ 133 mls/hr IVPB Q12H [facility] Last Admin: 09/28/16 07:32 Dose: 133 mls/hr Insulin Human Regular (Novolin R) 0 unit SC ACHS [facility] PRN Reason: Protocol Last Admin: 09/28/16 07:46 Dose: Not Given Metformin HCl (Glucophage) 500 mg PO BID [facility] Last Admin: 09/28/16 10:17 Dose: 500 mg Saccharomyces Katiedii (Florastor) 250 mg PO BID [facility] Last Admin: 09/28/16 10:17 Dose: 250 mg - Labs Labs: 09/28/16 07:08 09/28/16 07:08 PT 13.3 SECONDS (9.7-12.2) H 09/25/16 14:29 INR 1.2 09/25/16 14:29 APTT 29 SECONDS (21-34) 09/25/16 14:29 - Constitutional Appears: Cachectic - Head Exam Head Exam: ATRAUMATIC, NORMAL INSPECTION, NORMOCEPHALIC - Eye Exam Eye Exam: EOMI, Normal appearance, PERRL - ENT Exam ENT Exam: Mucous Membranes Moist, Normal Exam - Neck Exam Neck Exam: Full ROM, Normal Inspection. absent: Lymphadenopathy - Respiratory Exam Respiratory Exam: Clear to Ausculation Bilateral, NORMAL BREATHING PATTERN Additional comments: weak inspiratory effort - Cardiovascular Exam Cardiovascular Exam: REGULAR RHYTHM, +S1, +S2. absent: Murmur - GI/Abdominal Exam GI & Abdominal Exam: Soft, Normal Bowel Sounds. absent: Tenderness - Rectal Exam Rectal Exam: Deferred - Extremities Exam Extremities Exam: Full ROM, Normal Capillary Refill, Normal Inspection. absent : Joint Swelling, Pedal Edema - Neurological Exam Neurological Exam: Alert, Awake, Oriented x3 - Psychiatric Exam Psychiatric exam: Normal Affect, Normal Mood - Skin Additional comments: Chronic purpuric rash in interscapular region Assessment and Plan - Assessment and Plan (Free Text) Assessment: (1) Sepsis Status: Acute Comment: * 09/28: wbc 6.2; urine culture Final -> positive for ecoli and staph aureus * 09/28: f/u ECHO report to r/o endocarditis * 09/25: Criteria: Code Sepsis called. HR: 92. WBC 16.6, Neutr % 87.2. Lactate 2.4-->1.6 Source: UTI- UA LE 2+, Nitrate positive, WBC 77. * Patient started on IV fluids. * 09/27: discontinued Ceftriaxone 1gm Q24h (active since 09/25/16). * 09/27: started ciprofloxacin 400mg IV q12 considering the Urine Culture + for E. coli and Staph aureus both of which are sensitive to Ciprofloxacin * Florastor 250mg PO BID * Blood cultures (09/25/16): no growth after 24hours X2 * Urine culture (09/25/16): Staph aureus; gram negative rip-->awaiting final culture * CT Abdomen/Pelvis CT (IV contrast only)- Thick-walled urinary bladder which may represent an underlying cystitis. Prominent and enlarged prostate gland measuring 6.0x 4.3 cm with thickened nodular calcification. Mild thickening of descending sigmoid colon which my represent an underlying mild colitis. 8.4mm pulmonary nodule seen within the right middle lobe. Atelectasis within lingula and biateral lung bases. Fatty liver. (Please see full report) (2) UTI (urinary tract infection) Status: Acute Comment: 09/27: Final -> urine culture positive for ecoli and staph aureus * 09/25: See Sepsis. f/u urine culture (3) Urinary hesitancy Status: Acute Comment: 09/27: prostate specific Ag 5.27 * 09/26 Pending PSA; possible may need eval if hesistancy does not improve; given enlarged prostate noted on CT scan * 09/25: CT Abdomen/Pelvis CT- Thick-walled urinary bladder which may represent an underlying cystitis. Prominent and enlarged prostate gland measuring 6.0x 4.3 cm with thickened nodular calcification. Mild thickening of descending sigmoid colon which my represent an underlying mild colitis. 8.4mm pulmonary nodule seen within the right middle lobe. Atelectasis within lingula and bilateral lung bases. Fatty liver. (PLease see full report). * f/u PSA (Free/ total) (4) Diabetes mellitus Status: Chronic Comment: * 09/26: Hgba1c: 7.4; c/w Metformin 500mg PO BID; Lipid Panel: TG; 175, Cholestrol: 116, LDL: 66, HDL: 22 * 09/25: c/w Metformin 500mg PO BID. Accucheck ACHS. RISS. Heart Healthy, Mod CHO diet. f/u HgbA1C, Lipid profile (5) Wasting generalized Status: Chronic Comment: 09/28: glycerna shake x3 day * rocket assembly operator referral; ordered for calorie count (6) History of colon cancer Status: Chronic Comment: 09/28: Per Dr Parker, "Declined Code status discussion at this time" 09/27: palliative care consult, Dr Parker * 09/25: Consult [facility]- Dr. Pedro- f/u colon cancer hx; patient's heme-onc who he has not followed up with (7) Enlarged Prostate 09/27: Prostate specific antigen: elevated at 5.27 09/25: CT abdomen/Pelvis: "Prominent and enlarged prostate gland measuring 6.0x 4.3 cm with thickened nodular calcification." (8) Prophylactic measure Status: Acute Comment: * SCDs. * Heparin 5000U SC Q8h. * Pepcid 20mg PO BID * PT/OT eval * rocket assembly operator referral <Patrick Carlisle - Last Filed: 09/28/16 20:22> Objective - Vital Signs/Intake and Output Vital Signs (last 24 hours): Temp Pulse Resp BP Pulse Ox 97.8 F 52 L 18 134/64 97 09/28/16 15:25 09/28/16 15:30 09/28/16 15:25 09/28/16 15:25 09/28/16 15:25 Intake and Output: 09/28/16 09/29/16 18:59 06:59 Intake Total 1030 Output Total 675 300 Balance 355 -300 - Medications Medications: Current Medications Enalapril Maleate (Vasotec) 10 mg PO Q12 [facility] Last Admin: 09/28/16 10:17 Dose: 10 mg Famotidine (Pepcid) 20 mg PO BID [facility] Last Admin: 09/28/16 17:42 Dose: 20 mg Heparin Sodium (Porcine) (Heparin) 5,000 units SC Q8 [facility] Last Admin: 09/28/16 13:43 Dose: 5,000 units Sodium Chloride (Sodium Chloride 0.9%) 1,000 mls @ 75 mls/hr IV .[id number] [facility] Last Admin: 09/28/16 14:57 Dose: 75 mls/hr Ciprofloxacin (Cipro 400mg/200ml Dsw) 400 mg in 200 mls @ 133 mls/hr IVPB Q12H [facility] Last Admin: 09/28/16 18:02 Dose: 133 mls/hr Insulin Human Regular (Novolin R) 0 unit SC ACHS [facility] PRN Reason: Protocol Last Admin: 09/28/16 17:34 Dose: Not Given Metformin HCl (Glucophage) 500 mg PO BID [facility] Last Admin: 09/28/16 17:42 Dose: 500 mg Saccharomyces Boulardii (Florastor) 250 mg PO BID [facility] Last Admin: 09/28/16 17:42 Dose: 250 mg - Labs Labs: 09/28/16 07:08 09/28/16 07:08 PT 13.3 SECONDS (9.7-12.2) H 09/25/16 14:29 INR 1.2 09/25/16 14:29 APTT 29 SECONDS (21-34) 09/25/16 14:29 Attending/Attestation - Attestation I have personally seen and examined this patient.: Yes I have fully participated in the care of the patient.: Yes I have reviewed all pertinent clinical information, including history, physical exam and plan: Yes Notes (Text): 09/28/16 20:20 Patient was seen and examined at 5:50 PM Exam, Assessment and Plan were thoroughly gone over with the Resident As long as the Blood Culture is negative for at least 3 days (72 hours), there is NO fever, and cleared by ID, then we will discharge patient to home. Patient has also declined to discuss Code Status with me at the time of my exam. He will need follow up with Oncologist Dr. Pedro as instructed by her for December 2016. He will need follow up with Urologist as an outpatient through his PMD for elevated PSA and enlarged prostate. F/U 2D Echocardiogram report to make sure no evidence of endocarditis. Patrick Carlisle D.O.
--- NOTE | 2016-09-28 11:33 | CP.PCM.CON ---
History of Present Illness - History of Present Illness History of Present Illness: Palliative consult Requested by Kim FRANKLIN Reason: Goals of care discussion Patient is a 61 yo male admitted with complains of dizziness, weakness and mild chest pressure X 3 days. Patient noted urinating often in small amounts. Patient denied burning upon urination. Upon admission found to have E Coli in the urine. Started on Rocephin IV. WBC 7.8, Hb 11.8. Ct abdomen was significant for colon thickening and new pulmonary nodules. Patient has known hx of colon CA and is S/P chemo. Patient reports unwanted weight loss of 30 lb while on chemo and has never regained that weight. 115 lb at present. Denies abdominal pain, constipation, diarhhea. PMH: HTN, DM, colon CA, S/P chemo Tx, CVA, Soc. Hx:lives alone, has a sister, no contact with her over 20 years, smokes 3- 4 cigars a day, disabled Fam Hx: Denies cancer in family, denies knowledge about his parents medical Hx, parents Review of Systems - Review of Systems All systems: reviewed and no additional remarkable complaints except - Constitutional Constitutional: Weight Loss, Weakness - EENT Eyes: absent: As Per HPI, Blind Spots, Blurred Vision, Change in Vision, Decreased Night Vision, Diplopia, Discharge, Dry Eye, Exophthalmos, Floaters, Irritation, Itchy Eyes, Loss of Peripheral Vision, Pain, Photophobia, Requires Corrective Lenses, Sees Flashes, Spots in Vision, Tunnel Vision, Other Visual Disturbances, Loss of Vision, Other Ears: absent: As Per HPI, Decreased Hearing, Ear Discharge, Ear Pain, Tinnitus, Abnormal Hearing, Disequilibrium, Dizziness, Other Nose/Mouth/Throat: absent: As Per HPI, Epistaxis, Nasal Congestion, Nasal Discharge, Nasal Obstruction, Nasal Trauma, Nose Pain, Post Nasal Drip, Sinus Pain, Sinus Pressure, Bleeding Gums, Change in Voice, Dental Pain, Dry Mouth, Dysphagia, Halitosis, Hoarsness, Lip Swelling, Mouth Lesions, Mouth Pain, Odynophagia, Sore Throat, Throat Swelling, Tongue Swelling, Facial Pain, Neck Pain, Neck Mass, Other - Cardiovascular Cardiovascular: absent: As Per HPI, Acrocyanosis, Chest Pain, Chest Pain at Rest , Chest Pain with Activity, Claudication, Diaphoresis, Dyspnea, Dyspnea on Exertion, Edema, Irregular Heart Rhythm, Pain Radiating to Arm/Neck/Jaw, Leg Edema, Leg Ulcers, Lightheadedness, Orthopnea, Palpitations, Paroxysmal Nocturnal Dyspnea, Pedal Edema, Radiating Pain, Rapid Heart Rate, Slow Heart Rate, Syncope, Other - Respiratory Respiratory: absent: As Per HPI, Cough, Dyspnea, Hemoptysis, Dyspnea on Exertion , Wheezing, Snoring, Stridor, Pain on Inspiration, Chest Congestion, Excessive Mucous Production, Change in Mucous Color, Pain with Coughing, Other - Gastrointestinal Gastrointestinal: absent: As Per HPI, Abdominal Pain, Belching, Bloating, Change in Bowel Habits, Change in Stool Character, Coffee Ground Emesis, Constipation, Cramping, Diarrhea, Dyspepsia, Dysphagia, Early Satiety, Excessive Flatus, Fecal Incontinence, Heartburn, Hematemesis, Hematochezia, Loose Stools, Melena, Nausea, Odynophagia, Temesmus, Vomiting, Other - Genitourinary Genitourinary: Change in Urinary Stream, Urinary Frequency, Voiding Freq/Small Amts - Musculoskeletal Musculoskeletal: Arthralgias, Deformity - Integumentary Integumentary: absent: As Per HPI, Acne, Alopecia, Bleeding Lesions, Change in Hair, Change in Nails, Change in Pigmentation, Changing Lesions, Dry Skin, Erythema, Furuncle, Hirsutism, Lesions, New Lesions, Non-Healing Lesions, Photosensitivity, Pruritus, Rash, Skin Pain, Skin Ulcer, Sores, Striae, Swelling , Unusual Bruising, Wounds, Jaundice, Other - Neurological Neurological: absent: As Per HPI, Abnormal Gait, Abnormal Hearing, Abnormal Movements, Abnormal Speech, Behavioral Changes, Burning Sensations, Confusion, Convulsions, Disequilibrium, Dizziness, Numbness, Focal Weakness, Frequent Falls , Headaches, Lack of Coordination, Loss of Vision, Memory Loss, Paresthesias, Radicular Pain, Restless Legs, Sensory Deficit, Syncope, Tingling, Tremor, Vertigo, Weakness, Other Visual Disturbances, Other - Psychiatric Psychiatric: absent: As Per HPI, Abnormal Sleep Pattern, Anhedonia, Anxiety, Auditory Hallucinations, Behavioral Changes, Change in Appetite, Change in Libido, Confusion, Depression, Difficulty Concentrating, Hallucinations, Homicidal Ideation, Hopelessness, Irritability, Memory Loss, Mood Swings, Panic Attacks, Paranoia, Suicidal Ideation, Visual Hallucinations, Tactile Hallucinations, Other - Endocrine Endocrine: absent: As Per HPI, Change in Body Appearance, Change in Libido, Cold Intolorance, Deepening of Voice, Excessive Sweating, Fatigue, Flushing, Heat Intolorance, Increase in Ring/Shoe/Hat Size, Palpitations, Polydipsia, Polyphagia, Polyuria, Other - Hematologic/Lymphatic Hematologic: absent: As Per HPI, Easy Bleeding, Easy Bruising, Lymphadenopathy, Other Past Patient History - Past Medical History & Family History Past Medical History?: Yes - Past Social History Smoking Status: Smokes 3 Cigars/day Chewing Tobacco Use: No Cigar Use: No Alcohol: None Drugs: Denies Home Situation {Lives}: Alone - CARDIAC Hx Hypertension: Yes - PULMONARY Hx Respiratory Disorders: No - NEUROLOGICAL Hx Neurological Disorder: Yes HX Cerebrovascular Accident: Yes (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 GI Bleed= feb 2016 - GENITOURINARY/GYNECOLOGICAL Hx Genitourinary Disorders: No - PSYCHIATRIC Hx Substance Use: No - SURGICAL HISTORY Hx Surgeries: Yes Other/Comment: colon cancer surgery - ANESTHESIA Hx Anesthesia: Yes Hx Anesthesia Reactions: No Meds Allergies/Adverse Reactions: Allergies Allergy/AdvReac Type Severity Reaction Status Date / Time No Known Allergies Allergy Verified 09/25/16 13:02 - Medications Medications: Current Medications Enalapril Maleate (Vasotec) 10 mg PO Q12 [facility] Last Admin: 09/28/16 10:17 Dose: 10 mg Famotidine (Pepcid) 20 mg PO BID [facility] Last Admin: 09/28/16 10:17 Dose: 20 mg Heparin Sodium (Porcine) (Heparin) 5,000 units SC Q8 [facility] Last Admin: 09/28/16 06:46 Dose: 5,000 units Sodium Chloride (Sodium Chloride 0.9%) 1,000 mls @ 75 mls/hr IV .[id number] [facility] Last Admin: 09/27/16 11:45 Dose: Not Given Ciprofloxacin (Cipro 400mg/200ml Dsw) 400 mg in 200 mls @ 133 mls/hr IVPB Q12H [facility] Last Admin: 09/28/16 07:32 Dose: 133 mls/hr Insulin Human Regular (Novolin R) 0 unit SC ACHS [facility] PRN Reason: Protocol Last Admin: 09/28/16 07:46 Dose: Not Given Metformin HCl (Glucophage) 500 mg PO BID [facility] Last Admin: 09/28/16 10:17 Dose: 500 mg Saccharomyces Boulardii (Florastor) 250 mg PO BID [facility] Last Admin: 09/28/16 10:17 Dose: 250 mg Physical Exam - Constitutional Appears: No Acute Distress - Head Exam Head Exam: ATRAUMATIC, NORMAL INSPECTION, NORMOCEPHALIC - Eye Exam Eye Exam: EOMI, Normal appearance, PERRL Pupil Exam: NORMAL ACCOMODATION, PERRL - ENT Exam ENT Exam: Mucous Membranes Moist, Normal Exam - Respiratory Exam Respiratory Exam: Clear to Auscultation Bilateral, NORMAL BREATHING PATTERN - Cardiovascular Exam Cardiovascular Exam: REGULAR RHYTHM, +S1, +S2 - GI/Abdominal Exam GI & Abdominal Exam: Normal Bowel Sounds, Soft - Rectal Exam Rectal Exam: NORMAL INSPECTION - Exam Exam: NORMAL INSPECTION - Extremities Exam Extremities exam: Positive for: normal inspection - Back Exam Back exam: NORMAL INSPECTION - Neurological Exam Neurological exam: Alert, Normal Gait, Oriented x3, Reflexes Normal - Psychiatric Exam Psychiatric exam: Normal Affect, Normal Mood - Skin Skin Exam: Normal Color, Warm Results - Vital Signs Recent Vital Signs: Last Vital Signs Temp 98.5 F 09/28/16 07:00 Pulse 56 L 09/28/16 07:00 Resp 20 09/28/16 07:00 BP 127/72 09/28/16 10:17 Pulse Ox 96 09/28/16 07:00 - Labs Result Diagrams: 09/28/16 07:08 09/28/16 07:08 Labs: Laboratory Results - last 24 hr 09/26/16 09/27/16 09/27/16 08:05 11:36 16:07 WBC RBC Hgb Hct MCV MCH MCHC RDW Plt Count MPV Neut % (Auto) Lymph % (Auto) [place] % (Auto) Eos % (Auto) Baso % (Auto) Neut # Lymph # [place] # Eos # Baso # Sodium Potassium Chloride Carbon Dioxide Anion Gap BUN Creatinine Est GFR ( Amer) Est GFR (Non-Af Amer) POC Glucose (mg/dL) 130 H 118 H Random Glucose Calcium Total Bilirubin AST ALT Alkaline Phosphatase Total Protein Albumin Globulin Albumin/Globulin Ratio Free PSA 0.5 % Free PSA 7 L Total PSA 7.2 H Prostate Cancer Risk 56 09/27/16 09/28/16 09/28/16 21:30 06:39 07:08 WBC 6.2 RBC 4.44 Hgb 11.7 L Hct 34.5 L MCV 77.7 L MCH 26.3 L MCHC 33.8 RDW 17.5 H Plt Count 266 MPV 7.9 Neut % (Auto) 61.8 Lymph % (Auto) 22.5 [place] % (Auto) 9.4 Eos % (Auto) 5.2 H Baso % (Auto) 1.1 Neut # 3.8 Lymph # 1.4 [place] # 0.6 Eos # 0.3 Baso # 0.1 Sodium Potassium Chloride Carbon Dioxide Anion Gap BUN Creatinine Est GFR ( Amer) Est GFR (Non-Af Amer) POC Glucose (mg/dL) 133 H 94 Random Glucose Calcium Total Bilirubin AST ALT Alkaline Phosphatase Total Protein Albumin Globulin Albumin/Globulin Ratio Free PSA % Free PSA Total PSA Prostate Cancer Risk 09/28/16 07:08 WBC RBC Hgb Hct MCV MCH MCHC RDW Plt Count MPV Neut % (Auto) Lymph % (Auto) [place] % (Auto) Eos % (Auto) Baso % (Auto) Neut # Lymph # [place] # Eos # Baso # Sodium 138 Potassium 3.6 Chloride 104 Carbon Dioxide 22 Anion Gap 15 BUN 10 Creatinine 0.4 L Est GFR ( Amer) > 60 Est GFR (Non-Af Amer) > 60 POC Glucose (mg/dL) Random Glucose 94 Calcium 8.6 Total Bilirubin 0.5 AST 63 H ALT 69 Alkaline Phosphatase 56 Total Protein 7.0 Albumin 3.4 L Globulin 3.7 Albumin/Globulin Ratio 0.9 L Free PSA % Free PSA Total PSA Prostate Cancer Risk Assessment & Plan - Assessment and Plan (Free Text) Assessment: Palliative consult Code status Full Code, no advance directive on chart I reviewed medical records, all diagnostic srudies, examined and interviewed patient in the bed. patient is alert, oriented X 3, ambulatory, with affect that is appropriate. Patient looks cachectic, 115 lb. Per patient he lost 30 lb while on chemo. Skin is pale and dry. hb 11.8. Lungs sounds are clear, good air entry. Denies SOB, chest pain. Abdomen oft anf flat, denies constipation, abdominal pain. Extremities are skinny with pronounced knee joints. Patient reports mild stiffness, but denied pain. urinates without difficulties. reports urgency and voiding in small amounts has improved. We discussed goals of care. Patient reports being self sufficient on his own, able to drive, food shop and cook. Patient enjoys his cigars and is looking forward returning home to his normal life. We discussed the healthy life style and proper nutrition and hydration. Patient reports drinking enough fluid and I reinforced continuation of that practice. Code Status discussed. patient stated not being ready to discuss it just yet. he admits being afraid to think about . I reassured him that he was not in imminent danger and that many people have clear preferences regarding the way they want to . The Code status was a jail plan. Impression * Patient is recovering from UTI and is not in any acute distress * There is no respiratory distress * Tolerates diet well, denies constipation, abdominal pain * Declined Code status discussion at this time Suggestion * Treat UTI * Reinforce PO fluids * Discharge planing Thank you !
[2016-09-28] MEDS: Sodium Chloride 0.9% 1,000 ML IV SCH (14:57)
--- NOTE | 2016-09-28 23:16 | CP.PCM.PN ---
Subjective - Date & Time of Evaluation Date of Evaluation: 09/28/16 Time of Evaluation: 02:40 - Subjective Subjective: patient offers no new complaints and is on antibiotics and is emaciated Objective - Vital Signs/Intake and Output Vital Signs (last 24 hours): Temp Pulse Resp BP Pulse Ox 97.8 F 52 L 18 154/66 H 97 09/28/16 15:25 09/28/16 15:30 09/28/16 15:25 09/28/16 21:13 09/28/16 15:25 Intake and Output: 09/28/16 09/29/16 18:59 06:59 Intake Total 1030 Output Total 675 700 Balance 355 -700 - Medications Medications: Current Medications Enalapril Maleate (Vasotec) 10 mg PO Q12 [facility] Last Admin: 09/28/16 21:13 Dose: 10 mg Famotidine (Pepcid) 20 mg PO BID [facility] Last Admin: 09/28/16 17:42 Dose: 20 mg Ciprofloxacin (Cipro 400mg/200ml Dsw) 400 mg in 200 mls @ 133 mls/hr IVPB Q12H [facility] Last Admin: 09/28/16 18:02 Dose: 133 mls/hr Insulin Human Regular (Novolin R) 0 unit SC ACHS [facility] PRN Reason: Protocol Last Admin: 09/28/16 22:07 Dose: Not Given Metformin HCl (Glucophage) 500 mg PO BID [facility] Last Admin: 09/28/16 17:42 Dose: 500 mg Saccharomyces Boulardii (Florastor) 250 mg PO BID [facility] Last Admin: 09/28/16 17:42 Dose: 250 mg - Labs Labs: 09/28/16 07:08 09/28/16 07:08 PT 13.3 SECONDS (9.7-12.2) H 09/25/16 14:29 INR 1.2 09/25/16 14:29 APTT 29 SECONDS (21-34) 09/25/16 14:29 - Constitutional Appears: No Acute Distress - Head Exam Head Exam: ATRAUMATIC, NORMOCEPHALIC - Eye Exam Eye Exam: Normal appearance Pupil Exam: NORMAL ACCOMODATION - ENT Exam ENT Exam: Mucous Membranes Moist - Neck Exam Neck Exam: Normal Inspection - Respiratory Exam Respiratory Exam: Clear to Ausculation Bilateral, NORMAL BREATHING PATTERN - Cardiovascular Exam Cardiovascular Exam: REGULAR RHYTHM, RRR - GI/Abdominal Exam GI & Abdominal Exam: Soft, Normal Bowel Sounds - Extremities Exam Additional comments: muscle atrophy and less tone ,cachexia secondary to dermatomyositis and deformity of fingers also Assessment and Plan (1) Cystitis Assessment & Plan: Patient has staph and ecoli in rine with cystitis and is on antibiotics for it BPHi Status: Acute (2) History of colon cancer Assessment & Plan: patient has pulmonary lesions could be malignant Status: Acute (3) UTI (urinary tract infection) Status: Acute (4) Diabetes mellitus Status: Acute (5) Sepsis Assessment & Plan: on antibiotics Status: Acute - Assessment and Plan (Free Text) Assessment: patient needs 7 day antibiotic for cystitis
[2016-09-29 00:59] VITALS: RESP 20
[2016-09-29 04:24] VITALS: PULSE 60
[2016-09-29] MEDS: Sodium Chloride 0.9% 1,000 ML IV SCH (06:18)
[2016-09-29] MEDS: Ciprofloxacin 400mg/200ml D5W 400 MG/200 ML BAG IVPB SCH (06:19)
[2016-09-29 07:35] LABS: ALBUMIN 3.4 g/dL (3.5-5.0)
[2016-09-29 07:38] LABS: GFR AFRICAN-AMERICAN > 60; GFR NON-AFRICAN AMERICAN > 60
[2016-09-29 07:39] LABS: ALB/GLOB RATIO 0.9 (1.0-2.1); ALT/SGPT 76 U/L (21-72); AST/SGOT 70 U/L (17-59); BASO # 0.1 K/uL (0.0-0.2); BASO % 0.9 % (0.0-2.0); BLOOD UREA NITROGEN 11 mg/dL (9-20); CALCIUM 9.1 mg/dl (8.6-10.4); EOS # 0.3 K/uL (0.0-0.7); EOS % 3.6 % (0.0-4.0); HEMOGLOBIN 11.6 g/dL (12.0-18.0); LYMPH # 1.6 K/uL (1.0-4.3); LYMPH % 22.7 % (20.0-40.0); MEAN CELL VOLUME 77.3 fL (80.0-94.0); MEAN CORPUSCULAR HEMOGLOBIN 26.3 pg (27.0-31.0); MEAN CORPUSCULAR HGB CONC 34.1 g/dL (33.0-37.0); MEAN PLATELET VOLUME 7.7 fL (7.2-11.7); MONO # 0.6 K/uL (0.0-0.8); MONO % 7.8 % (0.0-10.0); NEUT # 4.6 K/uL (1.8-7.0); NRBC % 0.1 % (0.0-2.0); RBC 4.39 Mil/uL (4.40-5.90); RED CELL DISTRIBUTION WIDTH 17.7 % (11.5-14.5); WHITE BLOOD COUNT 7.1 K/uL (4.8-10.8)
[2016-09-29] MEDS: (Novolin R) Insulin Human Regular 100 units/ml vial SC SCH ×2 (08:03→12:45)
[2016-09-29 08:42] VITALS: TEMP 98; O2SAT 97
--- NOTE | 2016-09-29 08:50 | CP.PCM.PN ---
Subjective - Date & Time of Evaluation Date of Evaluation: 09/29/16 Time of Evaluation: 08:25 - Subjective Subjective: Hospitalist Progress Note (Patient was seen and examined at 8:25 AM 09/29/16 658 A) Very pleasant 61 year old male (PMHx DM 2, Colon CA) who was being treated for Sepsis Secondary UTI. Urine Culture showed E. coli and Staph aureus. Blood Culture is negative to date. He has not had any fevers for the past 48 hours, Vitals are stable. Prelimanary 2D Echocardiogram report from [facility] does not show any evidence of Endocarditis, mild LVH. Patient is stable for discharge. Currrently upon FULL ROS there is NO chest pain, NO palpitations, NO SOB/Cough/ Wheezing, NO abdominal pain, NO n/v/d/c (last bowel movement was this morning 03/06 and it was normal), NO burning/pain with urination, NO lightheadedness/ dizziness, NO headache, NO new changes in vision, NO new changes in hearing, NO paresthesias, NO diaphoresis. Exam: General: AAOx3, NAD, Cachetic HEENT: NCA, EOMI, PERRLA, NO lymphadenopathy, NO thyromegaly, NO pharyngeal erythema/exudate Cardio: NS1 and NS2, NO M/R/G Resp: CTA B/L, NO R/R/W GI: BSx4 are decreased, NT, ND, NO HSM, NO guarding rebound tenderness Ext: Pulses are strong and equal, Capillary Refill is 2 seconds, NO edema Neuro: CN II through XII are grossly intact Asssessments: 1). Sepsis Secondary to UTI 2). Elevated PSA with Enlarged Prostate 3). RML 8.4 mm Lung Nodule 4). Hx DM 2 5). Hx Colon CA The following instructions should be included in the discharge summary by the Environmental Systems Coordinator: 1). Follow up with your Primary Care Physician Dr. Maki within the next 7 days. 2). Please bring a copy of the discharge summary given to you to your appointment with Dr. Maki for his review. 3). The following prescriptions were provided to you: Ciprofloxicin 500 mg, 1 tablet by mouth 2x/day (breakfast and dinner) through , Dispense: #10, NO refills Enalapril 10 mg, 1 tablet by mouth 2x/day (breakfast and dinner), Dispense: #30 , NO refills Protonix 40 mg, 1 tablet by mouth 1x/day (breakfast), Dispense: #30, NO refills 4). You stated you had enough of Metformin at home so please continue to take 500 mg 1 tablet by mouth 2x/day (breakfast and dinner). 5). Please take the following over the counter (does not require a prescription ) medications: Aspirin 81 mg, 1 tablet by mouth 1x/day (breakfast) Probiotic 1 tablet by mouth at lunchtime for the next 35 days. You can ask your pharmacist which one he recommends. 6). DO NOT TAKE the Tradjenta that you have at home. 7). Through Dr. Maki's office you will need to be have a referral for evaluation by Urologist for your enlarged Prostate and high Prostate blood levels. 8). Through Dr. Maki's office you will need to have a CAT Scan of your Chest for further evaluation of the lung nodule that was found on your Right Lung. 9). Through Dr. Maki's office please obtain the official report for the 2D Echocardiogrm that was performed. 10). Please follow up with your Oncologist Dr. Pedro as instructed by her in December 2016. 11). Please take care. Patrick Carlisle D.O. Objective - Vital Signs/Intake and Output Vital Signs (last 24 hours): Temp Pulse Resp BP Pulse Ox 98.5 F 60 20 141/84 98 09/29/16 04:23 09/29/16 04:23 09/29/16 04:23 09/29/16 04:23 09/28/16 23:35 Intake and Output: 09/29/16 09/29/16 06:59 18:59 Intake Total 745 Output Total 1300 Balance -555 - Medications Medications: Current Medications Enalapril Maleate (Vasotec) 10 mg PO Q12 [facility] Last Admin: 09/28/16 21:13 Dose: 10 mg Famotidine (Pepcid) 20 mg PO BID [facility] Last Admin: 09/28/16 17:42 Dose: 20 mg Heparin Sodium (Porcine) (Heparin) 5,000 units SC Q12 [facility] Ciprofloxacin (Cipro 400mg/200ml Dsw) 400 mg in 200 mls @ 133 mls/hr IVPB Q12H [facility] Last Admin: 09/29/16 06:19 Dose: 133 mls/hr Insulin Human Regular (Novolin R) 0 unit SC ACHS [facility] PRN Reason: Protocol Last Admin: 09/28/16 22:07 Dose: Not Given Metformin HCl (Glucophage) 500 mg PO BID [facility] Last Admin: 09/28/16 17:42 Dose: 500 mg Saccharomyces Boulardii (Florastor) 250 mg PO BID [facility] Last Admin: 09/28/16 17:42 Dose: 250 mg - Labs Labs: 09/29/16 07:04 09/29/16 07:04 PT 13.3 SECONDS (9.7-12.2) H 09/25/16 14:29 INR 1.2 09/25/16 14:29 APTT 29 SECONDS (21-34) 09/25/16 14:29
[2016-09-29] MEDS: Saccharomyces Boulardi 250 mg Cap PO SCH (10:33)
[2016-09-29 10:34] VITALS: BP 142/71
--- NOTE | 2016-09-29 11:32 | CP.PCM.DIS ---
<Ish Sheppard - Last Filed: 09/29/16 12:51> Provider - Provider Date of Admission: 09/25/16 17:03 Attending physician: Patrick Carlisle MD Primary care physician: Dr Maki Consults: Infectious Disease - Dr Peterson Palliative Care - Dr Parker Heme/Onc - Dr Pedro Urology - Dr Laureano Time Spent in preparation of Discharge (in minutes): 45 Diagnosis - Discharge Diagnosis (1) Sepsis Status: Acute (2) UTI (urinary tract infection) Status: Acute (3) Weakness Status: Acute (4) Wasting generalized Status: Chronic (5) History of colon cancer Status: Acute Hospital Course - Lab Results Lab Results: Micro Results 09/25/16 Unknown Urine Urine Culture - Final Escherichia Coli Staphylococcus Aureus Most Recent Lab Values WBC 7.1 K/uL (4.8-10.8) 09/29/16 07:04 RBC 4.39 Mil/uL (4.40-5.90) L 09/29/16 07:04 Hgb 11.6 g/dL (12.0-18.0) L 09/29/16 07:04 Hct 34.0 % (35.0-51.0) L 09/29/16 07:04 MCV 77.3 fL (80.0-94.0) L 09/29/16 07:04 MCH 26.3 pg (27.0-31.0) L 09/29/16 07:04 MCHC 34.1 g/dL (33.0-37.0) 09/29/16 07:04 RDW 17.7 % (11.5-14.5) H 09/29/16 07:04 Plt Count 258 K/uL (130-400) 09/29/16 07:04 MPV 7.7 fL (7.2-11.7) 09/29/16 07:04 Neut % (Auto) 65.0 % (50.0-75.0) 09/29/16 07:04 Lymph % (Auto) 22.7 % (20.0-40.0) 09/29/16 07:04 [place] % (Auto) 7.8 % (0.0-10.0) 09/29/16 07:04 Eos % (Auto) 3.6 % (0.0-4.0) 09/29/16 07:04 Baso % (Auto) 0.9 % (0.0-2.0) 09/29/16 07:04 Neut # 4.6 K/uL (1.8-7.0) 09/29/16 07:04 Lymph # 1.6 K/uL (1.0-4.3) 09/29/16 07:04 [place] # 0.6 K/uL (0.0-0.8) 09/29/16 07:04 Eos # 0.3 K/uL (0.0-0.7) 09/29/16 07:04 Baso # 0.1 K/uL (0.0-0.2) 09/29/16 07:04 Neutrophils % (Manual) 87 % (50-75) H 09/25/16 14:29 Lymphocytes % (Manual) 7 % (20-40) L 09/25/16 14:29 Monocytes % (Manual) 6 % (0-10) 09/25/16 14:29 Platelet Estimate Normal (NORMAL) 09/25/16 14:29 Anisocytosis (manual) Slight 09/25/16 14:29 Ovalocytes Slight 09/25/16 14:29 PT 13.3 SECONDS (9.7-12.2) H 09/25/16 14:29 INR 1.2 09/25/16 14:29 APTT 29 SECONDS (21-34) 09/25/16 14:29 pO2 35 mm/Hg (30-55) 09/25/16 20:58 VBG pH 7.43 (7.32-7.43) 09/25/16 20:58 VBG pCO2 41 mmHg (40-60) 09/25/16 20:58 VBG HCO3 26.2 mmol/L 09/25/16 20:58 VBG Total CO2 28.5 mmol/L (22-28) H 09/25/16 20:58 VBG O2 Sat (Calc) 79.6 % (40-65) H 09/25/16 20:58 VBG Base Excess 2.6 mmol/L (0.0-2.0) H 09/25/16 20:58 VBG Potassium 3.9 mmol/L (3.6-5.2) 09/25/16 20:58 Sodium 136.0 mmol/l (132-148) 09/25/16 20:58 Chloride 100.0 mmol/L (98-107) 09/25/16 20:58 Glucose 110 mg/dl (75-110) 09/25/16 20:58 Lactate 1.6 mmol/L (0.7-2.1) 09/25/16 20:58 Sodium 139 mmol/L (132-148) 09/29/16 07:04 Potassium 4.0 mmol/L (3.6-5.2) 09/29/16 07:04 Chloride 102 mmol/L (98-107) 09/29/16 07:04 Carbon Dioxide 24 mmol/L (22-30) 09/29/16 07:04 Anion Gap 16 (10-20) 09/29/16 07:04 BUN 11 mg/dL (9-20) 09/29/16 07:04 Creatinine 0.5 MG/DL (0.8-1.5) L 09/29/16 07:04 Est GFR ( Amer) > 60 09/29/16 07:04 Est GFR (Non-Af Amer) > 60 09/29/16 07:04 POC Glucose (mg/dL) 106 mg/dL (65-110) 09/29/16 06:19 Random Glucose 112 mg/dL (75-110) H 09/29/16 07:04 Hemoglobin A1c 7.4 % (4.2-6.5) H D 09/26/16 08:05 Calcium 9.1 mg/dl (8.6-10.4) 09/29/16 07:04 Magnesium 1.7 mg/dL (1.6-2.3) 09/26/16 08:05 Total Bilirubin 0.4 mg/dL (0.2-1.3) 09/29/16 07:04 AST 70 U/L (17-59) H 09/29/16 07:04 ALT 76 U/L (21-72) H 09/29/16 07:04 Alkaline Phosphatase 62 U/L (38-126) 09/29/16 07:04 Troponin I < 0.0120 ng/mL (0.00-0.120) 09/25/16 14:29 Total Protein 7.2 g/dL (6.3-8.3) 09/29/16 07:04 Albumin 3.4 g/dL (3.5-5.0) L 09/29/16 07:04 Globulin 3.8 gm/dL (2.2-3.9) 09/29/16 07:04 Albumin/Globulin Ratio 0.9 (1.0-2.1) L 09/29/16 07:04 Triglycerides 175 mg/dL (0-149) H 09/26/16 08:05 Cholesterol 116 mg/dL (0-199) 09/26/16 08:05 LDL Cholesterol Direct 66 mg/dL (0-129) 09/26/16 08:05 HDL Cholesterol 22 mg/dL (30-70) L 09/26/16 08:05 Lipase 108 U/L (23-300) 09/25/16 14:29 Prostate Specific Ag 5.27 ng/mL (0.00-4.0) H 09/27/16 07:14 Free PSA 0.5 ng/mL 09/26/16 08:05 % Free PSA 7 Percent (>25) L 09/26/16 08:05 Total PSA 7.2 ng/mL (<=4.0) H 09/26/16 08:05 Prostate Cancer Risk 56 Percent 09/26/16 08:05 Venous Blood Potassium 3.9 mmol/L (3.6-5.2) 09/25/16 20:58 Urine Color Anca (YELLOW) 09/25/16 15:04 Urine Clarity Hazy (Clear) 09/25/16 15:04 Urine pH 5.0 (5.0-8.0) 09/25/16 15:04 Ur Specific [place] 1.023 (1.003-1.030) 09/25/16 15:04 Urine Protein 2+ mg/dL (NEGATIVE) H 09/25/16 15:04 Urine Glucose (UA) 1+ mg/dL (Normal) H 09/25/16 15:04 Urine Ketones Trace mg/dL (NEGATIVE) 09/25/16 15:04 Urine Blood 1+ (NEGATIVE) H 09/25/16 15:04 Urine Nitrate Positive (NEGATIVE) H 09/25/16 15:04 Urine Bilirubin Negative (NEGATIVE) 09/25/16 15:04 Urine Urobilinogen Normal mg/dL (0.2-1.0) 09/25/16 15:04 Ur Leukocyte Esterase 2+ [place]/uL (Negative) H 09/25/16 15:04 Urine WBC (Auto) 77 /hpf (0-5) H 09/25/16 15:04 Urine RBC (Auto) 9 /hpf (0-3) H 09/25/16 15:04 Ur Squamous Epith Cells 2 /hpf (0-5) 09/25/16 15:04 Urine Bacteria Few (<OCC) H 09/25/16 15:04 Hyaline Casts 0-2 /lpf (0-2) 09/25/16 15:04 - Hospital Course Hospital Course: CC: "weakness, lightheadedness and decreased appetite" HPI: 61 year old Male PMHx dermatomyositis, TIA/stroke, hypertension, hypothyroidism, diabetes, colon cancer, presenting to the ED complaining of weakness, lightheadness, and decreased appetite for past 4 days.Patient reports first time feeling weakness, lightheadedness and decreased appetite. Patient denies relieving and remitting factors. Patient also frequency in urination, denies dysuria, denies hematuira, and reports changed from normal flow to short streams. Patient reports he usually eats TV dinners, and but currently he is currently forcing himself to eat about 1-2 bites. He states that after 1-2 bites , he feels full. PMD: Dr. Maki GI: Dr. Layne PMHxx: dermatomyositis (dx at age 7), TIA/stroke, hypertension, hypothyroidism, diabetes, colon cancer (dx 2012) Surgical Hx: 2013- Colon cancer co-resection; lost 40lbs; muscle biopsy; prior hx of feeding tube Medications: metformin 500mg PO bid, Tradjenta 5mg once a day , enalapril 10mg PO BID Family Hx Mother; cancer unknown Allergies: denies Social Hx: denies drugs, denies alcohol consumption; lives by himself; lives in basement apartment; 3 cigars a day since age 24 Prior hospitalization: bleeding (February 2016)--> underwent endoscopic procedure Hospital Course: Patient was admitted for his symptoms. A CT abd/pelvis was done which showed a possible cystitis, enlarged prostate and possibly mild colitis. A 8.4mm pulmonary nodule was also seen within right middle lobe, as well as fatty liver. Urine cultures and blood cultures were ordered. His urine culture came back positive for e coli and staph aureus. He was given ciprofloxacin 400mg iv q12 as both e coli and staph aureus are both sensitive to ciprofloxacin. Patient responded well to the antibiotic. His WBC trended down to normal limits. An ECHO was also ordered to rule out endocarditis, the report has not yet posted, the report can be sent to his primary medical doctor upon request. Of note, a code sepsis was called during his stay. Discharge Exam - Head Exam Head Exam: ATRAUMATIC, NORMOCEPHALIC - Eye Exam Eye Exam: EOMI, Normal appearance, PERRL - ENT Exam ENT Exam: Mucous Membranes Moist - Neck Exam Neck exam: Full Rom - Respiratory Exam Respiratory Exam: Clear to PA & Lateral, NORMAL BREATHING PATTERN. absent: Wheezes - Cardiovascular Exam Cardiovascular Exam: REGULAR RHYTHM, RRR, +S1, +S2 - GI/Abdominal Exam GI & Abdominal Exam: Normal Bowel Sounds, Soft. absent: Tenderness - Rectal Exam Rectal Exam: Deferred - Neurological Exam Neurological exam: Alert, Oriented x3 - Psychiatric Exam Psychiatric exam: Normal Affect, Normal Mood - Skin Skin Exam: Dry, Intact, Normal Color, Warm Discharge Plan - Discharge Medications Prescriptions: Ciprofloxacin [Cipro] 500 mg PO BID #10 tab Enalapril Maleate [Vasotec] 10 mg PO BID #60 tab Pantoprazole Sodium [Protonix] 40 mg PO DAILY #30 tablet.dr - Follow Up Plan Condition: STABLE Disposition: HOME/ ROUTINE Instructions: Urinary Tract Infection in Men (DC), Heart Healthy Diet (DC), Diabetic Foot Care (DC), Basic Carbohydrate Counting (DC), Meal Planning with the Plate Method (DC), Meal Planning with Diabetes Exchanges (DC) Additional Instructions: 1). Follow up with your Primary Care Physician Dr. Maki within the next 7 days. 2). Please bring a copy of the discharge summary given to you to your appointment with Dr. Maki for his review. 3). The following prescriptions were provided to you: Ciprofloxicin 500 mg, 1 tablet by mouth 2x/day (breakfast and dinner) through , Dispense: #10, NO refills Enalapril 10 mg, 1 tablet by mouth 2x/day (breakfast and dinner), Dispense: #30 , NO refills Protonix 40 mg, 1 tablet by mouth 1x/day (breakfast), Dispense: #30, NO refills 4). You stated you had enough of Metformin at home so please continue to take 500 mg 1 tablet by mouth 2x/day (breakfast and dinner). 5). Please take the following over the counter (does not require a prescription ) medications: Aspirin 81 mg, 1 tablet by mouth 1x/day (breakfast) Probiotic 1 tablet by mouth at lunchtime for the next 35 days. You can ask your pharmacist which one he recommends. 6). DO NOT TAKE the Tradjenta that you have at home. 7). Through Dr. Maki's office you will need to be have a referral for evaluation by Urologist for your enlarged Prostate and high Prostate blood levels. 8). Through Dr. Maki's office you will need to have a CAT Scan of your Chest for further evaluation of the lung nodule that was found on your Right Lung. 9). Through Dr. Maki's office please obtain the official report for the 2D Echocardiogrm that was performed. 10). Please follow up with your Oncologist Dr. Pedro as instructed by her in December 2016. 11). Please take care. <Patrick Carlisle - Last Filed: 09/29/16 19:14> Provider - Provider Date of Admission: 09/25/16 17:03 Attending physician: Patrick Carlisle MD Hospital Course - Lab Results Lab Results: Micro Results 09/25/16 Unknown Urine Urine Culture - Final Escherichia Coli Staphylococcus Aureus Most Recent Lab Values WBC 7.1 K/uL (4.8-10.8) 09/29/16 07:04 RBC 4.39 Mil/uL (4.40-5.90) L 09/29/16 07:04 Hgb 11.6 g/dL (12.0-18.0) L 09/29/16 07:04 Hct 34.0 % (35.0-51.0) L 09/29/16 07:04 MCV 77.3 fL (80.0-94.0) L 09/29/16 07:04 MCH 26.3 pg (27.0-31.0) L 09/29/16 07:04 MCHC 34.1 g/dL (33.0-37.0) 09/29/16 07:04 RDW 17.7 % (11.5-14.5) H 09/29/16 07:04 Plt Count 258 K/uL (130-400) 09/29/16 07:04 MPV 7.7 fL (7.2-11.7) 09/29/16 07:04 Neut % (Auto) 65.0 % (50.0-75.0) 09/29/16 07:04 Lymph % (Auto) 22.7 % (20.0-40.0) 09/29/16 07:04 [place] % (Auto) 7.8 % (0.0-10.0) 09/29/16 07:04 Eos % (Auto) 3.6 % (0.0-4.0) 09/29/16 07:04 Baso % (Auto) 0.9 % (0.0-2.0) 09/29/16 07:04 Neut # 4.6 K/uL (1.8-7.0) 09/29/16 07:04 Lymph # 1.6 K/uL (1.0-4.3) 09/29/16 07:04 [place] # 0.6 K/uL (0.0-0.8) 09/29/16 07:04 Eos # 0.3 K/uL (0.0-0.7) 09/29/16 07:04 Baso # 0.1 K/uL (0.0-0.2) 09/29/16 07:04 Neutrophils % (Manual) 87 % (50-75) H 09/25/16 14:29 Lymphocytes % (Manual) 7 % (20-40) L 09/25/16 14:29 Monocytes % (Manual) 6 % (0-10) 09/25/16 14:29 Platelet Estimate Normal (NORMAL) 09/25/16 14:29 Anisocytosis (manual) Slight 09/25/16 14:29 Ovalocytes Slight 09/25/16 14:29 PT 13.3 SECONDS (9.7-12.2) H 09/25/16 14:29 INR 1.2 09/25/16 14:29 APTT 29 SECONDS (21-34) 09/25/16 14:29 pO2 35 mm/Hg (30-55) 09/25/16 20:58 VBG pH 7.43 (7.32-7.43) 09/25/16 20:58 VBG pCO2 41 mmHg (40-60) 09/25/16 20:58 VBG HCO3 26.2 mmol/L 09/25/16 20:58 VBG Total CO2 28.5 mmol/L (22-28) H 09/25/16 20:58 VBG O2 Sat (Calc) 79.6 % (40-65) H 09/25/16 20:58 VBG Base Excess 2.6 mmol/L (0.0-2.0) H 09/25/16 20:58 VBG Potassium 3.9 mmol/L (3.6-5.2) 09/25/16 20:58 Sodium 136.0 mmol/l (132-148) 09/25/16 20:58 Chloride 100.0 mmol/L (98-107) 09/25/16 20:58 Glucose 110 mg/dl (75-110) 09/25/16 20:58 Lactate 1.6 mmol/L (0.7-2.1) 09/25/16 20:58 Sodium 139 mmol/L (132-148) 09/29/16 07:04 Potassium 4.0 mmol/L (3.6-5.2) 09/29/16 07:04 Chloride 102 mmol/L (98-107) 09/29/16 07:04 Carbon Dioxide 24 mmol/L (22-30) 09/29/16 07:04 Anion Gap 16 (10-20) 09/29/16 07:04 BUN 11 mg/dL (9-20) 09/29/16 07:04 Creatinine 0.5 MG/DL (0.8-1.5) L 09/29/16 07:04 Est GFR ( Amer) > 60 09/29/16 07:04 Est GFR (Non-Af Amer) > 60 09/29/16 07:04 POC Glucose (mg/dL) 159 mg/dL (65-110) H 09/29/16 11:24 Random Glucose 112 mg/dL (75-110) H 09/29/16 07:04 Hemoglobin A1c 7.4 % (4.2-6.5) H D 09/26/16 08:05 Calcium 9.1 mg/dl (8.6-10.4) 09/29/16 07:04 Magnesium 1.7 mg/dL (1.6-2.3) 09/26/16 08:05 Total Bilirubin 0.4 mg/dL (0.2-1.3) 09/29/16 07:04 AST 70 U/L (17-59) H 09/29/16 07:04 ALT 76 U/L (21-72) H 09/29/16 07:04 Alkaline Phosphatase 62 U/L (38-126) 09/29/16 07:04 Troponin I < 0.0120 ng/mL (0.00-0.120) 09/25/16 14:29 Total Protein 7.2 g/dL (6.3-8.3) 09/29/16 07:04 Albumin 3.4 g/dL (3.5-5.0) L 09/29/16 07:04 Globulin 3.8 gm/dL (2.2-3.9) 09/29/16 07:04 Albumin/Globulin Ratio 0.9 (1.0-2.1) L 09/29/16 07:04 Triglycerides 175 mg/dL (0-149) H 09/26/16 08:05 Cholesterol 116 mg/dL (0-199) 09/26/16 08:05 LDL Cholesterol Direct 66 mg/dL (0-129) 09/26/16 08:05 HDL Cholesterol 22 mg/dL (30-70) L 09/26/16 08:05 Lipase 108 U/L (23-300) 09/25/16 14:29 Prostate Specific Ag 5.27 ng/mL (0.00-4.0) H 09/27/16 07:14 Free PSA 0.5 ng/mL 09/26/16 08:05 % Free PSA 7 Percent (>25) L 09/26/16 08:05 Total PSA 7.2 ng/mL (<=4.0) H 09/26/16 08:05 Prostate Cancer Risk 56 Percent 09/26/16 08:05 Venous Blood Potassium 3.9 mmol/L (3.6-5.2) 09/25/16 20:58 Urine Color Anca (YELLOW) 09/25/16 15:04 Urine Clarity Hazy (Clear) 09/25/16 15:04 Urine pH 5.0 (5.0-8.0) 09/25/16 15:04 Ur Specific [place] 1.023 (1.003-1.030) 09/25/16 15:04 Urine Protein 2+ mg/dL (NEGATIVE) H 09/25/16 15:04 Urine Glucose (UA) 1+ mg/dL (Normal) H 09/25/16 15:04 Urine Ketones Trace mg/dL (NEGATIVE) 09/25/16 15:04 Urine Blood 1+ (NEGATIVE) H 09/25/16 15:04 Urine Nitrate Positive (NEGATIVE) H 09/25/16 15:04 Urine Bilirubin Negative (NEGATIVE) 09/25/16 15:04 Urine Urobilinogen Normal mg/dL (0.2-1.0) 09/25/16 15:04 Ur Leukocyte Esterase 2+ [place]/uL (Negative) H 09/25/16 15:04 Urine WBC (Auto) 77 /hpf (0-5) H 09/25/16 15:04 Urine RBC (Auto) 9 /hpf (0-3) H 09/25/16 15:04 Ur Squamous Epith Cells 2 /hpf (0-5) 09/25/16 15:04 Urine Bacteria Few (<OCC) H 09/25/16 15:04 Hyaline Casts 0-2 /lpf (0-2) 09/25/16 15:04 Attending/Attestation - Attestation I have personally seen and examined this patient.: Yes I have fully participated in the care of the patient.: Yes I have reviewed all pertinent clinical information, including history, physical exam and plan: Yes Notes (Text): 09/29/16 19:13 The Discharge for this patient was thoroughly gone over with the Outreach Clinician. Please also see my Progress Note for today 09/29/16. Patrick Carlisle D.O.
--- NOTE | 2016-10-01 07:47 | CARD ---
APPROVED REPORT EXAM: Two-dimensional and M-mode echocardiogram with Doppler and color Doppler. Other Information Quality : [employer] : NSR INDICATION urosepsis, staph in urine r/o endocarditis, hx of colon ca RISK FACTORS Diabetes M-Mode DIMENSIONS RVDd1.25 (2.1-3.2cm)Left Atrium (MM)3.12 (2.5-4.0cm) IVSd0.94 (0.7-1.1cm)Aortic Root3.02 (2.2-3.7cm) LVDd5.07 (4.0-5.6cm)Aortic Cusp Exc.2.39 (1.5-2.0cm) PWd0.83 (0.7-1.1cm)FS (%) 45 % LVDs2.78 (2.0-3.8cm)LVEF (%)76 (>50%) Mitral Valve MV E Nduuctud72.0cm/sMV A Xirhoahn40.4cm/sE/A ratio1.9 TDI E/Lateral E'0.0E/Medial E'0.0 Tricuspid Valve TR Peak [id number]/sTR Peak [id number] <Conclusion> Left ventricle: thickness: normal; size: normal; overall ejection fraction: 76%: diastolic filling pressures: normal Mitral valve: annulus: normal: leaflets: mild discrete calcification: excursion: normal; no significant trans-mitral gradient: mild incompetence: left atrium: normal Aortic valve: leaflets: normal: excursion: normal; no significant trans-aortic gradient: No significant incompetence: aortic root: normal Right sided Structures: Pulmonary valve: normal; no significant incompetence; Tricuspid valve: normal; mild incompetence: Intra-cardiac hemodynamics: pulmonary systolic pressures: 40mmHgl; central venous pressures: normal No pericardial effusion
== END 2016-09-29 14:07 | disposition home or self-care (01) | DRG 872 ==
LOC: C.ER 12:23 → C.9E 17:03 → C.6T 19:01
PROVIDERS: ADMIT Family Medicine; ATTEND Family Medicine
DX: A41.9 Sepsis, unspecified organism (principal); R64 Cachexia; N39.0 Urinary tract infection, site not specified; B96.20 Unspecified Escherichia coli [E. coli] as the cause of diseases classified elsewhere; E11.9 Type 2 diabetes mellitus without complications; I10 Essential (primary) hypertension; K76.0 Fatty (change of) liver, not elsewhere classified; Z68.1 Body mass index [BMI] 19.9 or less, adult; J98.11 Atelectasis; Z79.4 Long term (current) use of insulin; E03.9 Hypothyroidism, unspecified; K52.9 Noninfective gastroenteritis and colitis, unspecified; N40.0 Benign prostatic hyperplasia without lower urinary tract symptoms; Z85.038 Personal history of other malignant neoplasm of large intestine; Z86.73 Personal history of transient ischemic attack (TIA), and cerebral infarction without residual deficits; Z92.21 Personal history of antineoplastic chemotherapy

== ENCOUNTER 2016-10-17 13:41 | Inpatient (IN) | payer MEDICARE ==
[2016-10-17 13:41] VITALS: BMI 18.8
--- NOTE | 2016-10-17 14:28 | C.PDOC ---
History Of Present Illness 61-year-old male, presents to the emergency department with complaints of shortness of breath, generalized weakness and urinary hesitancy ongoing since hospitalization two weeks ago. Since he was discharged, he seems to have been getting worse. Denies pain, fevers, vomiting, diarrhea, chest pain, cough or any other associated symptoms. No other complaints at this time. Time Seen by Provider: 10/17/16 13:47 Chief Complaint (Nursing): Shortness Of Breath History Per: Patient History/Exam Limitations: no limitations Past Medical History Reviewed: Historical Data, Nursing Documentation, Vital Signs Vital Signs: Last Vital Signs Temp 97.7 F 10/17/16 14:11 Pulse 78 10/17/16 15:27 Resp 20 10/17/16 15:27 BP 136/75 10/17/16 15:27 Pulse Ox 100 10/17/16 15:27 - Medical History PMH: HTN, Malignancy (colon) - [facility] Procedures EXCISION OF STOMACH, ENDO, DIAGN (02/29/16) INSPECTION OF LOWER INTESTINAL TRACT, ENDO (02/29/16) Family History: States: No Known Family Hx - Social History Hx Alcohol Use: No Hx Substance Use: No - Immunization History Hx Tetanus Toxoid Vaccination: No Hx Influenza Vaccination: No Hx Pneumococcal Vaccination: No Review Of Systems Except As Marked, All Systems Reviewed And Found Negative. Constitutional: Positive for: Weakness Cardiovascular: Negative for: Chest Pain Respiratory: Positive for: Shortness of Breath Gastrointestinal: Negative for: Vomiting Genitourinary: Positive for: Other (urinary hesitancy) Musculoskeletal: Negative for: Back Pain Neurological: Negative for: Weakness, Numbness, Headache, Dizziness Physical Exam - Physical Exam Appears: Non-toxic, No Acute Distress, Chronically Ill (Cachectic) Skin: Warm, Dry, No Rash Nose: Normal Teeth: Other (poor dentition) Neck: Normal ROM Cardiovascular: Rhythm Regular, No Murmur Respiratory: Normal Breath Sounds, No Accessory Muscle Use Extremity: Normal ROM Neurological/Psych: Oriented x3, Normal Speech ED Course And Treatment - Laboratory Results Result Diagrams: 10/17/16 14:31 10/17/16 14:31 O2 Sat by Pulse Oximetry: 99 Medical Decision Making Medical Decision Making: ecg- nsr 88, nl axis, no acute ischemia cxr- nad Disposition - Disposition Disposition: HOSPITALIZED Disposition Time: 15:34 Condition: STABLE Forms: [employer] (Cuban) - Clinical Impression Clinical Impression: Sepsis - Scribe Statement The provider has reviewed the documentation as recorded by the Scribe (Haily Henderson) All medical record entries made by the Scribe were at my direction and personally dictated by me. I have reviewed the chart and agree that the record accurately reflects my personal performance of the history, physical exam, medical decision making, and the department course for this patient. I have also personally directed, reviewed, and agree with the discharge instructions and disposition.
[2016-10-17 14:36] LABS: BASO # 0.1 K/uL (0.0-0.2); BASO % 0.8 % (0.0-2.0); EOS # 0.1 K/uL (0.0-0.7); EOS % 1.1 % (0.0-4.0); HEMOGLOBIN 11.9 g/dL (12.0-18.0); LYMPH # 1.2 K/uL (1.0-4.3); LYMPH % 11.9 % (20.0-40.0); MEAN CELL VOLUME 78.4 fL (80.0-94.0); MEAN CORPUSCULAR HEMOGLOBIN 26.8 pg (27.0-31.0); MEAN CORPUSCULAR HGB CONC 34.2 g/dL (33.0-37.0); MEAN PLATELET VOLUME 7.9 fL (7.2-11.7); MONO # 0.5 K/uL (0.0-0.8); MONO % 5.3 % (0.0-10.0); NEUT % 80.9 % (50.0-75.0); RBC 4.45 Mil/uL (4.40-5.90); RED CELL DISTRIBUTION WIDTH 17.4 % (11.5-14.5); WHITE BLOOD COUNT 9.9 K/uL (4.8-10.8)
[2016-10-17 14:40] LABS: VENOUS BLOOD GAS BASE EXCESS -4.8 mmol/L (0.0-2.0); VENOUS BLOOD GAS PCO2 44 mmHg (40-60); VENOUS BLOOD GAS PO2 28 mm/Hg (30-55)
[2016-10-17 14:44] LABS: ALBUMIN 4.5 g/dL (3.5-5.0)
[2016-10-17 14:47] LABS: ALT/SGPT 71 U/L (21-72); AST/SGOT 58 U/L (17-59); BLOOD UREA NITROGEN 46 mg/dL (9-20); GFR AFRICAN-AMERICAN > 60; GFR NON-AFRICAN AMERICAN > 60
[2016-10-17 14:48] LABS: CALCIUM 10.4 mg/dl (8.6-10.4); MAGNESIUM 1.5 mg/dL (1.6-2.3)
[2016-10-17 14:56] LABS: B-TYPE NATRIURETIC PEPTIDE 97.2 pg/mL (0-900)
[2016-10-17] MEDS ORDERED: Sodium Chloride 0.9% 2,000 ML ONE (14:56)
[2016-10-17 15:02] LABS: PROTHROMBIN TIME 11.3 SECONDS (9.7-12.2)
[2016-10-17] MEDS ORDERED: Ciprofloxacin 400mg/200ml D5W 400 MG/200 ML BAG IVPB STA (15:03)
--- NOTE | 2016-10-17 15:06 | RAD ---
HISTORY: Sepsis Patient COMPARISON: 09/25/2016. FINDINGS: LUNGS: The lungs are hyperinflated and there is peribronchial thickening with chronic changes in both lungs. There is no lobar pneumonia. PLEURA: No significant pleural effusion identified, no pneumothorax apparent. CARDIOVASCULAR: Normal. OSSEOUS STRUCTURES: No significant abnormalities. VISUALIZED UPPER ABDOMEN: Normal. OTHER FINDINGS: None. IMPRESSION: No active pulmonary disease. COPD.
[2016-10-17 15:10] LABS: SQUAMOUS EPITHIAL 5 /hpf (0-5); URINE BACTERIA RARE (<OCC); URINE BILIRUBIN NEGATIVE (NEGATIVE); URINE BLOOD NEGATIVE (NEGATIVE); URINE CLARITY Hazy (Clear); URINE COLOR Yellow (YELLOW); URINE GLUCOSE (UA) NORMAL (Normal); URINE LEUKOCYTE ESTERASE NEG Leu/uL (Negative); URINE NITRATE NEGATIVE (NEGATIVE); URINE PROTEIN NEGATIVE (NEGATIVE); URINE UROBILINOGEN NORMAL mg/dL (0.2-1.0)
[2016-10-17] MEDS ORDERED: Ciprofloxacin 400mg/200ml D5W 400 MG/200 ML BAG IVPB ONE (15:14)
[2016-10-17] MEDS ORDERED: Vancomycin 500 mg Inj IVPB STA (15:15)
[2016-10-17] MEDS ORDERED: Piperacill/Tazo 3.375gm in Dex 3.375 GM/50 ML BAG IVPB STA (15:15)
[2016-10-17] MEDS ORDERED: Magnesium Sulfate 1 gm in D5W 1 GM/100 ML BAG IVPB ONE ×2 (15:18→15:43)
[2016-10-17] MEDS ORDERED: Piperacillin/Tazobact 3.375 gm 100 ML IVPB ONE (15:42)
--- NOTE | 2016-10-17 16:20 | CP.PCM.HP ---
<Elise Sen - Last Filed: 10/17/16 18:45> History of Present Illness - History of Present Illness History of Present Illness: CC: Generalized weakness HPI: Patient is a 61 year old male with past medical history an enlarged prostate, hypertension, type 2 diabetes mellitus, colon cancer, peptic ulcer, dermatomyositis (dx at age 7), TIA/stroke, who was treated 2 weeks ago for a urinary tract infection caused by E.coli and S. Aureus. Patient presents to the ED today with complaints of generalized weakness, shortness of breath, urinary frequency and difficulty passing urine. Prior to this admission, patient states full compliance with a 10-day course of ciprofloxacin for UTI. He was in his usual state of health until "a few days ago" when he suddenly began to feel very weak. The patient denies fevers, chills, headaches, chest pain, diarrhea, dysuria, cough and associated symptoms. The patient has not traveled recently and has no sick contacts PMD: Dr. Laurent Maki PMHx: Colon cancer (2013), Diabetes Mellitus Type 2, dermatomyositis (dx at age 7), TIA/stroke,, Hypertension, Peptic Ulcer PSHx: 2013- Colon cancer co-resection; lost 40lbs; muscle biopsy; prior hx of feeding tube FHx: Father: Seizures. Mother: Unknown Cancer. Hx of possible HTN and DM Medications: metformin 500mg PO bid, Vasotect 10mg PO BID, Protonix 40mg PO daily, Aspirin 81mg PO daily Allergies: NKDA Code Status: Full code Social Hx: Lives with Cat and Bird. Admits to 3 cigars in a day ( Started at age 20), denies ETOH and Illicit drugs Present on Admission - Present on Admission Any Indicators Present on Admission: No Review of Systems - Constitutional Constitutional: Weakness. absent: Chills, Fever, Headache - EENT Eyes: absent: Blurred Vision, Change in Vision Ears: absent: Dizziness - Cardiovascular Cardiovascular: Chest Pain, Chest Pain at Rest, Diaphoresis, Dyspnea, Palpitations - Respiratory Respiratory: Dyspnea, Dyspnea on Exertion - Gastrointestinal Gastrointestinal: Abdominal Pain, Hematochezia - Genitourinary Genitourinary: Difficulty Urinating, Urinary Frequency, Urinary Hesitance. absent: Dysuria, Flank Pain, Hematuria, Pyuria - Musculoskeletal Musculoskeletal: Muscle Weakness, Myalgias - Neurological Neurological: Weakness. absent: Dizziness - Endocrine Endocrine: Fatigue. absent: Palpitations Past Patient History - Past Medical History & Family History Past Medical History?: Yes - Past Social History Smoking Status: Heavy Smoker > 10 Cigarettes Daily - CARDIAC Hx Hypertension: Yes - PULMONARY Hx Respiratory Disorders: No - NEUROLOGICAL Hx Neurological Disorder: Yes HX Cerebrovascular Accident: Yes (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 GI Bleed= feb 2016 - GENITOURINARY/GYNECOLOGICAL Hx Genitourinary Disorders: No - PSYCHIATRIC Hx Substance Use: No - SURGICAL HISTORY Hx Surgeries: Yes Other/Comment: colon cancer surgery - ANESTHESIA Hx Anesthesia: Yes Hx Anesthesia Reactions: No Meds Allergies/Adverse Reactions: Allergies Allergy/AdvReac Type Severity Reaction Status Date / Time No Known Allergies Allergy Verified 10/17/16 13:46 Physical Exam - Constitutional Appears: No Acute Distress - Head Exam Head Exam: ATRAUMATIC, NORMAL INSPECTION - Eye Exam Eye Exam: EOMI, Normal appearance - ENT Exam ENT Exam: Mucous Membranes Moist, Normal Exam - Respiratory Exam Respiratory Exam: Decreased Breath Sounds, NORMAL BREATHING PATTERN - Cardiovascular Exam Cardiovascular Exam: REGULAR RHYTHM, +S1, +S2 - GI/Abdominal Exam GI & Abdominal Exam: Normal Bowel Sounds, Soft - Extremities Exam Extremities exam: Positive for: normal inspection. Negative for: pedal edema, tenderness - Neurological Exam Neurological exam: Alert, Oriented x3 - Psychiatric Exam Psychiatric exam: Normal Affect, Normal Mood - Skin Skin Exam: Dry, Normal Color, Warm Results - Vital Signs Recent Vital Signs: Last Vital Signs Temp 97.7 F 10/17/16 14:11 Pulse 78 10/17/16 15:27 Resp 20 10/17/16 15:27 BP 136/75 10/17/16 15:27 Pulse Ox 99 10/17/16 15:34 - Labs Result Diagrams: 10/17/16 14:31 10/17/16 14:31 Assessment & Plan (1) Sepsis Assessment and Plan: ID consult, Dr. Mcnair---> help appreciated Possibly secondary UTI and Prostatitis On admission: Afebrile WBC: WNL Neutrophils: 80.9 Meet SIRS/ Sepsis Criteria: * RR: 22 * HR: 121 * Lactate: 3.7, 3.1 Labs: UA: Negative F/u urine culture F/u blood culture F/u repeat lactate Medical Management: NS 0.9% @ 100mls/hr Ciprofloxacin 400mg IV Q12H Imaging: Chest X-ray: No active disease. COPD Status: Acute (2) Prostatitis Assessment and Plan: Urology Consult, Dr. Laureano---> Help appreciated ID consult, Dr. Mcnair---> Help appreciated PSA level (09/27/16) : 5.27 Medical Management: * Ciprofloxacin 400mg IV Q12H Imaging: CT abdomen and Pelvis (09/25/16): * Thick-walled urinary bladder which may represent an underlying cystitis. * Prominent and enlarged prostate gland measuring up to 6.0 x 4.3 centimeters with thickened nodular calcification within the midportion of the prostate measuring 1.5 centimeters Status: Acute (3) Dark stools Assessment and Plan: Possibly secondary to hx of peptic ulcer * H/H stable at 11.9/34.9 * F/u stool occult * F/u stool culture, ova and parasite and stool leukocytes Status: Acute (4) Hypomagnesemia Assessment and Plan: On admission: Mg 2+: 1.5 * Magnesium sulfate 1gm IVPB once * Follow-up with AM CMP * Monitor Status: Acute (5) Acute kidney injury Assessment and Plan: On admission: BUN/CR: 46/1.2 Monitor with labs Medical Management: * NS 0.9% @ 100mls/hr Status: Acute (6) Diabetes mellitus Assessment and Plan: HgbA1c (09/26/16): 7.4 Accucheks ISS--> moderate Protocol Hold home medication: Metformin 500mg PO BID due to JAZIEL and elevated lactate Status: Acute (7) History of hypertension Assessment and Plan: Continue home medications: * Vasotec 10mg PO BID * Monitor BP Status: Acute (8) Enlarged prostate Assessment and Plan: Urology Consult, Dr. Laureano---> Help appreciated PSA level (09/27/16) : 5.[address] abdomen and Pelvis (09/25/16): * Thick-walled urinary bladder which may represent an underlying cystitis. * Prominent and enlarged prostate gland measuring up to 6.0 x 4.3 centimeters with thickened nodular calcification within the midportion of the prostate measuring 1.5 centimeters Status: Acute (9) History of colon cancer Assessment and Plan: 2012- Colon cancer co-resection F/u with oncologist, December 2016 Imaging: CT abdomen and Pelvis (09/25/16): * Mild thickening of the descending and sigmoid colons which may represent an underlying mild colitis. Clinical correlation. Patient status post right hemicolectomy Status: Acute (10) History of solitary pulmonary nodule Assessment and Plan: Imaging: CT Abdomen and Pelvis (09/25/16): * 8.4 millimeter pulmonary nodule seen within the right middle lobe laterally on series 3, image 6 previously this measured 6 millimeters. Interval increase in size since the prior study. * Atelectasis within the lingula and bilateral lung bases. Additional scattered calcified foci at the left lung base suggestive for calcified granulomatous changes. 5 millimeter subpleural pulmonary nodule at the right lobe laterally not as well appreciated the prior study. CT chest without contrast (03/03/16): * 8 mm pulmonary nodule lateral segment right middle lobe. * Peripheral nodule left lower lobe 3 mm Status: Acute (11) Prophylactic measure Assessment and Plan: SCD GI PPx: Protonix 40mg IV Q12H DVT PPx: Contraindication due to dark stool PT/OT evaluation and treatment Status: Acute <Josee Colindres V - Last Filed: 10/17/16 20:34> Results - Vital Signs Recent Vital Signs: Last Vital Signs Temp 98.4 F 10/17/16 16:21 Pulse 73 10/17/16 16:21 Resp 20 10/17/16 16:21 BP 160/66 H 10/17/16 19:02 Pulse Ox 100 10/17/16 16:21 - Labs Result Diagrams: 10/17/16 14:31 10/17/16 14:31 Labs: Laboratory Results - last 24 hr 10/17/16 10/17/16 17:45 17:54 Puncture Site Rra pCO2 32 L pO2 96 HCO3 21.3 ABG pH 7.39 ABG Total CO2 20.4 L ABG O2 Saturation 100.2 H ABG Base Excess -4.6 L Wilmer Test A ABG Potassium 4.6 Sodium 143.0 Chloride 110.0 H Glucose 105 Lactate 3.1 H Lactic Acid 3.1 H Arterial Blood Potassium 4.6 Attending/Attestation - Attestation I have personally seen and examined this patient.: Yes I have fully participated in the care of the patient.: Yes I have reviewed all pertinent clinical information: Yes Notes (Text): Patient seen, examined and case discussed with day-time resident in [place] [id number] on 10/17/16 Patient was called as code sepsis by ED, patient is tacycardic, tachpneic, with lactate acid at 3.7. Patient was recently discharged from the hospital for sepsis secondary to UTI and complaint on PO Cipro on discharge. Patient reports for the past 3-4 days he has been feeling unwell. He reports he visited 3-4 days ago his PMD. Patient noted he has feeling tired, weak, noted lack of appetite, and early satiety when he does eat. Patient has pending follow-up with his heme-onc in 12/2016. Patient reporting urinary hestiancy since last admission; noting urine flow is dribbling has not improved. Last admission patient had elevated PSA in light of UTI symptoms and advised to follow-up outpatient with urology. Patient reports he has been having "black" stools for the past 3-4 days. Patient is compliant on Aspirin. He denies pepto bismal, iron tablets, or other NSAIDs. When I ask the patient is it as black as my stethoscope, patient denies. Patient denies BRBPR, denies stool coated in blood. Patient denies diarrhea symptoms. Patient has hx of colon cancer. Hgb: 11.6/9 similar to hgb when he was discharged. In ED, patient received 2 dose of IV abx, fluid bolus. Patient's repeat lactic ordered 3 hours from ED order per code sepsis protocol Will consult urology consultant electronics, infectious disease consultant electronics, and patient's private GI (Dr Layne/Dr. Manley). Discussed admitting orders with day-time resident. Assessment and Plan (1) Sepsis Status: Acute Comment: * Admit to telemetry * Infectious disease consultant electronics (Dr. Mcnair)--on consult f/u recommendations * 10/17: Code sepsis called in the ED. Criteria: tachycardia, tachypnea, suspected source of infection uti/prostatitis; lactate 3.7-->given 2 IV Abx, fluid bolus, and f/u lactic acid ordered 3 hours apart * Labs: Ordered for following: F/u urine culture, F/u blood cultures X2, f/u procalcitonin, and f/u repeat lactate * start NS 0.9% @ 100mls/hr * Start Ciprofloxacin 400mg IV Q12H (active since 10/17/16) sensitive to urine culture from last admission * CT Abdomen/Pelvis CT (09/25/16) (IV contrast only)- Thick-walled urinary bladder which may represent an underlying cystitis. Prominent and enlarged prostate gland measuring 6.0x 4.3 cm with thickened nodular calcification. Mild thickening of descending sigmoid colon which my represent an underlying mild colitis. 8.4mm pulmonary nodule seen within the right middle lobe. Atelectasis within lingula and biateral lung bases. Fatty liver. (Please see full report) (2) UTI (urinary tract infection) Status: Acute Comment: * See Sepsis. f/u urine culture; on IV abx (3) Urinary hesitancy Status: Acute Comment: * Urology consultant electronics (Dr. Tiffani Laureano)--f/u reason: enlarged prostate, elevated PSA, urine hesitancy, UTI symptoms * Prior PSA in last admission: patient had elevated PSA in context of UTI symptoms PSA level (09/27/16) : 5.27 * CT Abdomen/Pelvis CT (09/25/16)- Thick-walled urinary bladder which may represent an underlying cystitis. Prominent and enlarged prostate gland measuring 6.0x 4.3 cm with thickened nodular calcification. Mild thickening of descending sigmoid colon which my represent an underlying mild colitis. 8.4mm pulmonary nodule seen within the right middle lobe. Atelectasis within lingula and bilateral lung bases. Fatty liver. (PLease see full report). * f/u PSA (Free/ total) (4) Dark stools Assessment and Plan: * 10/17: GI Consult: Dr. Layne/Dr. Manley (patient's private GI) for dark stools * monitor H/H * Patient reports he is compliant on Aspirin 81mg PO daily and Protonix prior to hospitalization. Patient noting he has been noting 3-4 days of "black stools " * Patient has hx of peptic ulcer and on NSAID * H/H stable at 11.9/34.9 * Start Protonix 40mg IV Q 12hours * F/u stool occult blood and NELSON * F/u stool culture, ova and parasite and stool leukocytes Status: suspected (5) Hypomagnesemia Assessment and Plan: * 10/17: Mg 2+: 1.5-->repleted on admission; monitor Mg2+ in AM Status: Acute (6) Acute kidney injury Assessment and Plan: * 10/17: monitor BUN/Cr-->started on IV fluids; Status: acute (7) Diabetes mellitus Comment: * 10/17: held Metformin 500mg PO BID given patient has elevated lactic acid. Order for lipid panel, a1c in AM; Hgba1c: 7.4 last admission; insulin sliding subq (low dose) Status: Chronic (8) History of hypertension Assessment and Plan: * 10/17: monitor vital signs; patient is currently on IV fluids; will hold enalapril at this time Status: Chronic (9) Enlarged prostate Assessment and Plan: * 10/17 Urology Consult, Dr. Laureano---> Help appreciated; * PSA level (09/27/16) : 5.27 (in context of UTI) * Prior Imaging--> CT abdomen and Pelvis (09/25/16): * Thick-walled urinary bladder which may represent an underlying cystitis. * Prominent and enlarged prostate gland measuring up to 6.0 x 4.3 centimeters with thickened nodular calcification within the midportion of the prostate measuring 1.5 centimeters Status: Chronic (10) History of colon cancer Assessment and Plan: * 10/17: Patient to follow-up with heme-onc, Dr Malathi Pedro in 12/2016. Status: Chronic (10) History of solitary pulmonary nodule Assessment and Plan: Imaging: CT Abdomen and Pelvis (09/25/16): * 8.4 millimeter pulmonary nodule seen within the right middle lobe laterally on series 3, image 6 previously this measured 6 millimeters. Interval increase in size since the prior study. * Atelectasis within the lingula and bilateral lung bases. Additional scattered calcified foci at the left lung base suggestive for calcified granulomatous changes. 5 millimeter subpleural pulmonary nodule at the right lobe laterally not as well appreciated the prior study. CT chest without contrast (03/03/16): * 8 mm pulmonary nodule lateral segment right middle lobe. * Peripheral nodule left lower lobe 3 mm Status: Chronic (11) Prophylactic measure Status: Acute Comment: * SCDs. held VTE anticogulation given possiblity of GI bleed given "dark stools ". * Protonix 40mg IV q daily * PT/OT eval * ebd special education teacher referral Status: Acute
[2016-10-17] MEDS ORDERED: Vancomycin 0.8 GM in Sodium Chloride 0.9% 250 ML IVPB ONE (17:00)
--- NOTE | 2016-10-17 17:14 | CP.PCM.CON ---
History of Present Illness - History of Present Illness History of Present Illness: 61-year-old male, presents to the emergency department with complaints of shortness of breath, generalized weakness and urinary hesitancy ongoing since hospitalization two weeks ago. Since he was discharged, he seems to have been getting worse. Denies pain, fevers, vomiting, diarrhea, chest pain, cough or any other associated symptoms. No other complaints at this time. - Medical History PMH: HTN, Malignancy (colon) - [facility] Procedures EXCISION OF STOMACH, ENDO, DIAGN (02/29/16) INSPECTION OF LOWER INTESTINAL TRACT, ENDO (02/29/16) Past Patient History - Past Medical History & Family History Past Medical History?: Yes - Past Social History Smoking Status: Heavy Smoker > 10 Cigarettes Daily - CARDIAC Hx Hypertension: Yes - PULMONARY Hx Respiratory Disorders: No - NEUROLOGICAL Hx Neurological Disorder: Yes HX Cerebrovascular Accident: Yes (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 GI Bleed= feb 2016 - GENITOURINARY/GYNECOLOGICAL Hx Genitourinary Disorders: No - PSYCHIATRIC Hx Substance Use: No - SURGICAL HISTORY Hx Surgeries: Yes Other/Comment: colon cancer surgery - ANESTHESIA Hx Anesthesia: Yes Hx Anesthesia Reactions: No Meds Allergies/Adverse Reactions: Allergies Allergy/AdvReac Type Severity Reaction Status Date / Time No Known Allergies Allergy Verified 10/17/16 13:46 - Medications Medications: Current Medications Vancomycin HCl 0.8 gm/ Sodium (Chloride) 250 mls @ 83.333 mls/hr IVPB ONCE ONE Stop: 10/17/16 19:59 Sodium Chloride (Sodium Chloride 0.9%) 1,000 mls @ 100 mls/hr IV .Q10H [facility] Pantoprazole Sodium (Protonix Inj) 40 mg IVP Q12H [facility] Results - Vital Signs Recent Vital Signs: Last Vital Signs Temp 98.4 F 10/17/16 16:21 Pulse 73 10/17/16 16:21 Resp 20 10/17/16 16:21 BP 145/74 07/30/17 16:21 Pulse Ox 100 10/17/16 16:21 - Labs Result Diagrams: 10/17/16 14:31 10/17/16 14:31
[2016-10-17 17:54] LABS: ABG ALLEN TEST A; ARTERIAL BLOOD GAS HCO3 21.3 mmol/L (21-28); ARTERIAL BLOOD GAS O2 SAT 100.2 % (95-98); ARTERIAL BLOOD GAS PCO2 32 mm/Hg (35-45); ARTERIAL BLOOD GAS PH 7.39 (7.35-7.45); ARTERIAL BLOOD GAS PO2 96 mm/Hg (80-100); ARTERIAL BLOOD GAS TCO2 20.4 mmol/L (22-28)
[2016-10-17] MEDS: Sodium Chloride 0.9% 1,000 ML IV SCH (18:56)
[2016-10-17] MEDS: Saccharomyces Boulardi 250 mg Cap PO SCH (19:01)
--- NOTE | 2016-10-17 19:10 | PCM.SEPTIC ---
<Elise Sen - Last Filed: 10/17/16 19:07> Sepsis Progress Note - Reassessment Type Date of Evaluation: 10/17/16 Time of Evaluation: 03:35 Reassessment Type: Non-invasive reassessment - Non Invasive Reassessment Were the most recent vital sign reviewed: Yes Vital Sign (Latest): Temp Pulse Resp BP Pulse Ox 98.4 F 73 20 160/66 H 100 10/17/16 16:21 10/17/16 16:21 10/17/16 16:21 10/17/16 19:02 10/17/16 16:21 Cardiovascular: Yes: Regular Rate, Rhythm, Tachycardia Respiratory: Yes: Decreased Breath Sounds Capillary Refill: Normal (Less than 2 sec) Pulses: Normal Radial, Normal Dorsalis Pedis, Normal Posterior Tibialis Skin: Warm, Dry Was a passive leg raise performed or was a fluid challenge performed within 6 hrs of the initial fluid bolus: Yes Fluid Challenge performed: Yes <Josee Colindres V - Last Filed: 10/17/16 20:35> Sepsis Progress Note - Non Invasive Reassessment Vital Sign (Latest): Temp Pulse Resp BP Pulse Ox 98.4 F 73 20 160/66 H 100 10/17/16 16:21 10/17/16 16:21 10/17/16 16:21 10/17/16 19:02 10/17/16 16:21 Attending/Attestation - Attestation I have personally seen and examined this patient.: Yes I have fully participated in the care of the patient.: Yes I have reviewed all pertinent clinical information, including history, physical exam and plan: Yes Notes (Text): Code sepsis called on day of admission. Criteria: tachycardia, tachypnea; lactate 3.7, suspicion of uti Given 2 IV Abx and fluid challenge by the ED Repeat lactate 3 hours late: 3.1 Advised resided to order repeat lactate in 3 hours. Vital signs are stable.
--- NOTE | 2016-10-17 21:03 | PCM.SEPTIC ---
Sepsis Progress Note - Reassessment Type Date of Evaluation: 10/17/16 (Patient appears clinically stable at this time. No apparent overt ischemic changes or signs noted. Patient's elevated lactate of 4.0 likely secondarily due to dermatomyositis.) Reassessment Type: Non-invasive reassessment - Non Invasive Reassessment Were the most recent vital sign reviewed: Yes Vital Sign (Latest): Temp Pulse Resp BP Pulse Ox 97.8 F 73 20 160/66 H 99 10/17/16 17:05 10/17/16 17:05 10/17/16 17:05 10/17/16 19:02 10/17/16 17:05 Cardiovascular: Yes: Regular Rate, Rhythm Respiratory: Yes: Normal Breath Sounds Capillary Refill: Normal (Less than 2 sec) Pulses: Normal Dorsalis Pedis, Normal Posterior Tibialis Skin: Normal Color, Dry - Invasive Reassessment (complete 2 of 4) Was a Central Venous Pressure Measurement obtained within 6 Hours after the presentation of septic shock: No Was a passive leg raise performed or was a fluid challenge performed within 6 hrs of the initial fluid bolus: No Fluid Challenge performed: No
[2016-10-17] MEDS: (Novolin R) Insulin Human Regular 100 units/ml vial SC SCH (23:06)
[2016-10-18] MEDS: Ciprofloxacin 400mg/200ml D5W 400 MG/200 ML BAG IVPB SCH ×2 (02:21→14:55)
[2016-10-18 06:30] LABS: BASO # 0.1 K/uL (0.0-0.2); BASO % 0.9 % (0.0-2.0); EOS # 0.2 K/uL (0.0-0.7); EOS % 2.9 % (0.0-4.0); HEMOGLOBIN 9.4 g/dL (12.0-18.0); LYMPH % 14.7 % (20.0-40.0); MEAN CORPUSCULAR HEMOGLOBIN 27.2 pg (27.0-31.0); MEAN CORPUSCULAR HGB CONC 35.3 g/dL (33.0-37.0); MEAN PLATELET VOLUME 7.6 fL (7.2-11.7); MONO # 0.6 K/uL (0.0-0.8); MONO % 8.7 % (0.0-10.0); NEUT # 5.2 K/uL (1.8-7.0); NEUT % 72.8 % (50.0-75.0); RBC 3.46 Mil/uL (4.40-5.90); RED CELL DISTRIBUTION WIDTH 16.7 % (11.5-14.5); WHITE BLOOD COUNT 7.1 K/uL (4.8-10.8)
[2016-10-18 06:53] LABS: ALB/GLOB RATIO 1.2 (1.0-2.1); ALBUMIN 3.4 g/dL (3.5-5.0); ALT/SGPT 49 U/L (21-72); AST/SGOT 40 U/L (17-59); BLOOD UREA NITROGEN 36 mg/dL (9-20); CALCIUM 8.8 mg/dl (8.6-10.4); GFR AFRICAN-AMERICAN > 60; GFR NON-AFRICAN AMERICAN > 60; MAGNESIUM 1.7 mg/dL (1.6-2.3)
[2016-10-18] MEDS: (Novolin R) Insulin Human Regular 100 units/ml vial SC SCH ×4 (07:30→22:36)
--- NOTE | 2016-10-18 07:59 | CP.PCM.PN ---
Subjective - Date & Time of Evaluation Date of Evaluation: 10/18/16 Time of Evaluation: 07:00 - Subjective Subjective: PGY-[address] Colindres Patient was seen and examined at bedside. Objective - Vital Signs/Intake and Output Vital Signs (last 24 hours): Temp Pulse Resp BP Pulse Ox 97.9 F 59 L 20 137/68 100 10/18/16 04:10 10/18/16 04:10 10/18/16 04:10 10/18/16 04:10 10/17/16 23:35 Intake and Output: 10/18/16 10/18/16 06:59 18:59 Intake Total 700 Output Total 2000 Balance -1300 - Medications Medications: Current Medications Enalapril Maleate (Vasotec) 10 mg PO Q12 [facility] Sodium Chloride (Sodium Chloride 0.9%) 1,000 mls @ 100 mls/hr IV .Q10H [facility] Last Admin: 10/17/16 18:56 Dose: 100 mls/hr Ciprofloxacin (Cipro 400mg/200ml Dsw) 400 mg in 200 mls @ 133 mls/hr IVPB Q12H [facility] Last Admin: 10/18/16 02:21 Dose: 133 mls/hr Insulin Human Regular (Novolin R) 0 unit SC ACHS [facility] PRN Reason: Protocol Last Admin: 10/17/16 23:06 Dose: Not Given Pantoprazole Sodium (Protonix Inj) 40 mg IVP Q12H [facility] Last Admin: 10/18/16 05:10 Dose: 40 mg Saccharomyces Boulardii (Florastor) 250 mg PO BID [facility] Last Admin: 10/17/16 19:01 Dose: 250 mg - Labs Labs: 10/18/16 06:17 10/18/16 06:17 PT 11.3 SECONDS (9.7-12.2) 10/17/16 14:31 INR 1.0 10/17/16 14:31 APTT 31 SECONDS (21-34) 10/17/16 14:31
[2016-10-18] MEDS: Saccharomyces Boulardi 250 mg Cap PO SCH ×2 (10:13→19:23)
--- NOTE | 2016-10-18 11:30 | CP.PCM.PN ---
Subjective - Date & Time of Evaluation Date of Evaluation: 10/18/16 Time of Evaluation: 10:00 - Subjective Subjective: afebrile awake no abd pain Objective - Vital Signs/Intake and Output Vital Signs (last 24 hours): Temp Pulse Resp BP Pulse Ox 97.6 F 56 L 20 140/78 99 10/18/16 07:07 10/18/16 07:07 10/18/16 07:07 10/18/16 10:13 10/18/16 07:07 Intake and Output: 10/18/16 10/18/16 06:59 18:59 Intake Total 700 Output Total 1999 Balance -1300 - Medications Medications: Current Medications Enalapril Maleate (Vasotec) 10 mg PO Q12 [facility] Last Admin: 10/18/16 10:13 Dose: 10 mg Sodium Chloride (Sodium Chloride 0.9%) 1,000 mls @ 100 mls/hr IV .Q10H [facility] Last Admin: 10/17/16 18:56 Dose: 100 mls/hr Ciprofloxacin (Cipro 400mg/200ml Dsw) 400 mg in 200 mls @ 133 mls/hr IVPB Q12H [facility] Last Admin: 10/18/16 02:21 Dose: 133 mls/hr Insulin Human Regular (Novolin R) 0 unit SC ACHS [facility] PRN Reason: Protocol Last Admin: 10/17/16 23:06 Dose: Not Given Pantoprazole Sodium (Protonix Inj) 40 mg IVP Q12H [facility] Last Admin: 10/18/16 05:10 Dose: 40 mg Saccharomyces Boulardii (Florastor) 250 mg PO BID [facility] Last Admin: 10/18/16 10:13 Dose: 250 mg - Labs Labs: 10/18/16 06:17 10/18/16 06:17 PT 11.3 SECONDS (9.7-12.2) 10/17/16 14:31 INR 1.0 10/17/16 14:31 APTT 31 SECONDS (21-34) 10/17/16 14:31 - Constitutional Appears: Non-toxic, Chronically Ill - Head Exam Head Exam: NORMOCEPHALIC - Eye Exam Eye Exam: PERRL - ENT Exam ENT Exam: Mucous Membranes Dry - Neck Exam Neck Exam: absent: Lymphadenopathy - Respiratory Exam Respiratory Exam: Decreased Breath Sounds, Clear to Ausculation Bilateral - Cardiovascular Exam Cardiovascular Exam: REGULAR RHYTHM - GI/Abdominal Exam GI & Abdominal Exam: Distended, Soft. absent: Tenderness - Rectal Exam Rectal Exam: Deferred - Exam Exam: NORMAL INSPECTION Assessment and Plan - Assessment and Plan (Free Text) Assessment: bph r/o sepsis UTI on cipro
--- NOTE | 2016-10-18 12:01 | US ---
PROCEDURE: Ultrasound of the Bladder HISTORY: Enlarged prostate, UTI, Hesitancy, Hx Colon CA COMPARISON: None available. TECHNIQUE: Sonographic evaluation of the bladder was performed. FINDINGS: Unremarkable without wall thickening or intraluminal debris. Bilateral ureteral jets were identified. No calculus or gross mass lesion appreciated. No free fluid in pelvis. Prevoid Volume: 252.19 cc. Post void residual: 26.15 cc. The prostate gland measures approximately 5.2 x 2.7 x 4.4 cm, volume 32.9 cc. IMPRESSION: Prevoid urinary bladder 252.2 cc. Postvoid residual volume 26.2 cc. Prostate gland enlargement. Recommend correlation with PSA.
--- NOTE | 2016-10-18 12:53 | CP.PCM.PN ---
<Viry Gardiner - Last Filed: 10/18/16 12:57> Subjective - Date & Time of Evaluation Date of Evaluation: 10/18/16 Time of Evaluation: 08:00 - Subjective Subjective: Medicine note for Dr. Colindres Patient was seen and examined at bedside. Patient reported dysphasia to thin liquids; this has been occurring since 2012 after he suffered from a Stroke, and required the use of a PEG during that time. The dysphasia has not progressed to thick liquids or solids. He also reported to continue having dark , tarry stools, no BRBPR, stool occult negative. Last EGD showed gastritis and Colonoscopy was benign, both performed in February 2016. Denied fever, chills, headache, chest pain, odynophagia, abdominal pain, n/v/d/c or urinary symptoms. Objective - Vital Signs/Intake and Output Vital Signs (last 24 hours): Temp Pulse Resp BP Pulse Ox 97.6 F 56 L 20 140/78 99 10/18/16 07:07 10/18/16 07:07 10/18/16 07:07 10/18/16 10:13 10/18/16 07:07 Intake and Output: 10/18/16 10/18/16 06:59 18:59 Intake Total 700 Output Total 2000 Balance -1300 - Medications Medications: Current Medications Enalapril Maleate (Vasotec) 10 mg PO Q12 [facility] Last Admin: 10/18/16 10:13 Dose: 10 mg Sodium Chloride (Sodium Chloride 0.9%) 1,000 mls @ 100 mls/hr IV .Q10H [facility] Last Admin: 10/17/16 18:56 Dose: 100 mls/hr Ciprofloxacin (Cipro 400mg/200ml Dsw) 400 mg in 200 mls @ 133 mls/hr IVPB Q12H [facility] Last Admin: 10/18/16 02:21 Dose: 133 mls/hr Insulin Human Regular (Novolin R) 0 unit SC ACHS [facility] PRN Reason: Protocol Last Admin: 10/17/16 23:06 Dose: Not Given Pantoprazole Sodium (Protonix Inj) 40 mg IVP Q12H [facility] Last Admin: 10/18/16 05:10 Dose: 40 mg Saccharomyces Boulardii (Florastor) 250 mg PO BID [facility] Last Admin: 10/18/16 10:13 Dose: 250 mg - Labs Labs: 10/18/16 06:17 10/18/16 06:17 PT 11.3 SECONDS (9.7-12.2) 10/17/16 14:31 INR 1.0 10/17/16 14:31 APTT 31 SECONDS (21-34) 10/17/16 14:31 - Constitutional Appears: No Acute Distress - Head Exam Head Exam: NORMAL INSPECTION, NORMOCEPHALIC - Eye Exam Eye Exam: Normal appearance - ENT Exam ENT Exam: Mucous Membranes Moist - Respiratory Exam Respiratory Exam: Clear to Ausculation Bilateral, NORMAL BREATHING PATTERN - Cardiovascular Exam Cardiovascular Exam: REGULAR RHYTHM, RRR - GI/Abdominal Exam GI & Abdominal Exam: Soft, Normal Bowel Sounds. absent: Distended, Tenderness - Rectal Exam Rectal Exam: Deferred - Extremities Exam Extremities Exam: Normal Inspection. absent: Pedal Edema, Tenderness - Neurological Exam Neurological Exam: Alert, Awake, Oriented x3 - Skin Skin Exam: Dry, Intact, Normal Color, Warm Assessment and Plan - Assessment and Plan (Free Text) Plan: Sepsis ID consult, Dr. Mcnair---> Continue current regimen Possibly secondary UTI and Prostatitis On admission: Afebrile WBC: WNL Neutrophils: 80.9 Meet SIRS/ Sepsis Criteria: * RR: 22 * HR: 121 * Lactate: 3.7, 3.1 During Hospital Course: Afebrile WBC: WNL Neutrophils: WNL, no bandemia Labs: UA: Negative Urine culture - negative F/U blood culture Lactate - 3.7, 3.1, 4.0 Medical Management: NS 0.9% @ 100mls/hr Ciprofloxacin 400mg IV Q12H (started 10/18/16) Imaging: Chest X-ray: No active disease. COPD Status: Acute Prostatitis Assessment and Plan: Urology Consult, Dr. Laureano---> Bladder US ordered Bladder US (10/18/16): Prostate enlarged: 5.2 x 2.7 x 4.4cm, volume 32.9. Recommend correlation with PSA. ID consult, Dr. Mcnair---> Continue current regimen PSA level (09/27/16) : 5.2 F/U Repeat PSA --> Medical Management: * Ciprofloxacin 400mg IV Q12H started on 10/18/16 Imaging: CT abdomen and Pelvis (09/25/16): * Thick-walled urinary bladder which may represent an underlying cystitis. * Prominent and enlarged prostate gland measuring up to 6.0 x 4.3 centimeters with thickened nodular calcification within the midportion of the prostate measuring 1.5 centimeters Status: Acute Dark stools Assessment and Plan: Possibly secondary to hx of peptic ulcer * H/H stable at 9.4/26.6 --> F/U repeat CBC (maybe dilutional since patient was dehydrated upon admission) * Hx of melena and bloody stools - EGD and Colonoscopy performed 02/2016 showed gastritis and normal colonoscopy. * Initial stool occult negative, pending x2 * F/u stool culture, ova and parasite and stool leukocytes * GI consulted: Dr. Layne- miquel appreciated Status: Acute Hx of Dermatomyositis Assessment and Plan: Dermatology consulted- Dr. Ly - miquel appreciated F/U ESR, LDH, CRP Status: Chronic Hx of Parotid Mass Dysphagia Assessment and Plan: Soft Tissue CT 03/05/16 - 13.9 x 10.5 mm elliptical shape enhancing lesion within the posterior superior margin of the RIGHT parotid gland. Dr. Junior consulted- help appreciated Status: Chronic Dysphagia Assessment and Plan: Dysphagia to thin liquids s/p stroke 2010. Swallow eval ordered- recommendation for modified barium swallow Status: Chronic Diabetes mellitus Assessment and Plan: HgbA1c (09/26/16): 7.4 Accuchecks ISS--> moderate Protocol Hold home medication: Metformin 500mg PO BID and elevated lactate Status: Acute History of hypertension Assessment and Plan: Continue home medications: * Vasotec 10mg PO BID * Monitor BP ECHO 10/04: EF 76% Status: Acute History of colon cancer Assessment and Plan: 2012- Colon cancer co-resection F/u with oncologist Dr. Krishna Pedro, December 2016 Imaging: CT abdomen and Pelvis (09/25/16): * Mild thickening of the descending and sigmoid colons which may represent an underlying mild colitis. Clinical correlation. Patient status post right hemicolectomy Status: Acute History of solitary pulmonary nodule Assessment and Plan: Imaging: CT Abdomen and Pelvis (09/25/16): * 8.4 millimeter pulmonary nodule seen within the right middle lobe laterally on series 3, image 6 previously this measured 6 millimeters. Interval increase in size since the prior study. * Atelectasis within the lingula and bilateral lung bases. Additional scattered calcified foci at the left lung base suggestive for calcified granulomatous changes. 5 millimeter subpleural pulmonary nodule at the right lobe laterally not as well appreciated the prior study. CT chest without contrast (03/03/16): * 8 mm pulmonary nodule lateral segment right middle lobe. * Peripheral nodule left lower lobe 3 mm Status: Acute Prophylactic measure Assessment and Plan: GI PPx: Protonix 40mg IV Q12H DVT PPx: Contraindication due to dark stool, SCDs PT/OT evaluation and treatment Status: Acute DW Abdifatah Rondon DO, PGY-1 <Josee Colindres V - Last Filed: 10/18/16 17:13> Objective - Vital Signs/Intake and Output Vital Signs (last 24 hours): Temp Pulse Resp BP Pulse Ox 97.6 F 56 L 20 140/78 99 10/18/16 07:07 10/18/16 07:07 10/18/16 07:07 10/18/16 10:13 10/18/16 07:07 Intake and Output: 10/18/16 10/18/16 06:59 18:59 Intake Total 700 Output Total 2000 Balance -1300 - Medications Medications: Current Medications Enalapril Maleate (Vasotec) 10 mg PO Q12 [facility] Last Admin: 10/18/16 10:13 Dose: 10 mg Sodium Chloride (Sodium Chloride 0.9%) 1,000 mls @ 100 mls/hr IV .Q10H [facility] Last Admin: 10/18/16 14:30 Dose: 100 mls/hr Ciprofloxacin (Cipro 400mg/200ml Dsw) 400 mg in 200 mls @ 133 mls/hr IVPB Q12H [facility] Last Admin: 10/18/16 14:55 Dose: 133 mls/hr Insulin Human Regular (Novolin R) 0 unit SC ACHS [facility] PRN Reason: Protocol Last Admin: 10/18/16 14:50 Dose: 3 unit Pantoprazole Sodium (Protonix Inj) 40 mg IVP Q12H [facility] Last Admin: 10/18/16 05:10 Dose: 40 mg Saccharomyces Boulardii (Florastor) 250 mg PO BID [facility] Last Admin: 10/18/16 10:13 Dose: 250 mg - Labs Labs: 10/18/16 06:17 10/18/16 06:17 PT 11.3 SECONDS (9.7-12.2) 10/17/16 14:31 INR 1.0 10/17/16 14:31 APTT 31 SECONDS (21-34) 10/17/16 14:31 Attending/Attestation - Attestation I have personally seen and examined this patient.: Yes I have fully participated in the care of the patient.: Yes I have reviewed all pertinent clinical information, including history, physical exam and plan: Yes Notes (Text): Patient seen, examined, and case discussed with day-time resident. Patient seen this morning. patient appears better hydrated compared to last night. Discussed with Oneyda, swallow eval, dysphagia w liquids, recommended for modified barium study and given partoid lesion in February. Discussed with patient at bedside, he has not follow-up with ENT post hospitalization in Feb. Consult: Dr. Junior given abnormal lesions seen in CT neck in February to see if contributing. patient reports since his TIA/stroke in 2012 he has had dysphagia to liquids only but can tolerate solids. patient is persistent smoker, but understands it will lead to cancer, but cannot explain why he continues to smoke. Appreciate evaluation by patient's GI-->patient has a pending appointment with his heme-onc in December, Dr. Pedro. lactic acid evaluated-->will consult rheumatology to see if dermatomyosis is contributing (Dr. Ly). Patient is currently not on steroids and had prior workup as young age to confirm dermatomyositis. 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 Criteria: tachycardia, tachypnea, suspected source of infection uti/prostatitis; lactate 3.7-->given 2 IV Abx, fluid bolus, and f/u lactic acid ordered 3 hours apart * Labs: Ordered for following: F/u urine culture, F/u blood cultures X2, f/u procalcitonin, and f/u repeat lactate * start NS 0.9% @ 100mls/hr * Start Ciprofloxacin 400mg IV Q12H (active since 10/17/16) sensitive to urine culture from last admission * CT Abdomen/Pelvis CT (09/25/16) (IV contrast only)- Thick-walled urinary bladder which may represent an underlying cystitis. Prominent and enlarged prostate gland measuring 6.0x 4.3 cm with thickened nodular calcification. Mild thickening of descending sigmoid colon which my represent an underlying mild colitis. 8.4mm pulmonary nodule seen within the right middle lobe. Atelectasis within lingula and biateral lung bases. Fatty liver. (Please see full report) (2) UTI (urinary tract infection) Status: Acute Comment: * See Sepsis. f/u urine culture; on IV abx (3) Urinary hesitancy Status: Acute Comment: * 10/18: f/u urology; pending PSA * Urology imitation marble mechanic (Dr. Tiffani Laureano)--f/u reason: enlarged prostate, elevated PSA, urine hesitancy, UTI symptoms * Prior PSA in last admission: patient had elevated PSA in context of UTI symptoms PSA level (09/27/16) : 5.27 * CT Abdomen/Pelvis CT (09/25/16)- Thick-walled urinary bladder which may represent an underlying cystitis. Prominent and enlarged prostate gland measuring 6.0x 4.3 cm with thickened nodular calcification. Mild thickening of descending sigmoid colon which my represent an underlying mild colitis. 8.4mm pulmonary nodule seen within the right middle lobe. Atelectasis within lingula and bilateral lung bases. Fatty liver. (PLease see full report). * f/u PSA (Free/ total) (4) Dark stools Assessment and Plan: * 10/18: Per gi: check stool ob, monitor hgb/iron studies; prior egd/colonscopy no source of bleeding: no repeat now; * 10/17: GI Consult: Dr. Layne/Dr. Manley (patient's private GI) for dark stools * Patient reports he is compliant on Aspirin 81mg PO daily and Protonix prior to hospitalization. Patient noting he has been noting 3-4 days of "black stools " * Patient has hx of peptic ulcer and on NSAID * Start Protonix 40mg IV Q 12hours * F/u stool occult blood: negative and NELSON * F/u stool culture, ova and parasite and stool leukocytes Status: suspected (5) Hypomagnesemia Assessment and Plan: * 10/18: mg+:1.7 * 10/17: Mg 2+: 1.5-->repleted on admission; monitor Mg2+ in AM Status: Acute (6) Acute kidney injury Assessment and Plan: * 10/18: continue current management: BUN/Cr: 36/1.1 * 10/17: monitor BUN/Cr-->started on IV fluids; Status: acute (7) Diabetes mellitus Comment: * 10/18: pending labs * 10/17: held Metformin 500mg PO BID given patient has elevated lactic acid. Order for lipid panel, a1c in AM; Hgba1c: 7.4 last admission; insulin sliding subq (low dose) Status: Chronic (8) History of hypertension Assessment and Plan: * 10/18: continue current management * 10/17: monitor vital signs; patient is currently on IV fluids; will hold enalapril at this time Status: Chronic (9) Enlarged prostate Assessment and Plan: * 10/18: f/u urology; pending PSA * 10/17 Urology Consult, Dr. Laureano---> Help appreciated; * PSA level (09/27/16) : 5.27 (in context of UTI) * Prior Imaging--> CT abdomen and Pelvis (09/25/16): * Thick-walled urinary bladder which may represent an underlying cystitis. * Prominent and enlarged prostate gland measuring up to 6.0 x 4.3 centimeters with thickened nodular calcification within the midportion of the prostate measuring 1.5 centimeters Status: Chronic (10) History of colon cancer Assessment and Plan: * 10/18: f/u CEA * 10/17: Patient to follow-up with heme-onc, Dr Malathi Pedro in 12/2016. Status: Chronic (10) History of solitary pulmonary nodule Assessment and Plan: Imaging: CT Abdomen and Pelvis (09/25/16): * 8.4 millimeter pulmonary nodule seen within the right middle lobe laterally on series 3, image 6 previously this measured 6 millimeters. Interval increase in size since the prior study. * Atelectasis within the lingula and bilateral lung bases. Additional scattered calcified foci at the left lung base suggestive for calcified granulomatous changes. 5 millimeter subpleural pulmonary nodule at the right lobe laterally not as well appreciated the prior study. CT chest without contrast (03/03/16): * 8 mm pulmonary nodule lateral segment right middle lobe. * Peripheral nodule left lower lobe 3 mm Status: Chronic (11) History of partoid lesion * 10/18: Consult ENT (Dr. Junior): dysphagia and abnormal lesions; patient did not follow-up since February admission * Prior imaging: Ct scan (03/06/16): mild asymmetry of the true and false vocal cords on the right side; 13.9 X10.5mm elliptical shaped enhancing lesion possibly within the posterior superior margin of the right partoid gland Status: Acute (12): Dysphagia * 10/18: Swallow eval assessed patient-->recommended for modified barium swallow and ent evaluation; patient reports he has had dysphagia to liquid sonly stemming from prior TIA/Stroke in 2012 wherein he needed a feeding tube Status: Acute (13) Prophylactic measure Status: Acute Comment: * SCDs. held VTE anticogulation given possiblity of GI bleed given "dark stools ". * Protonix 40mg IV q daily * PT/OT eval * environmental permitting specialist referral Status: Acute
--- NOTE | 2016-10-18 13:50 | CARD ---
APPROVED REPORT EKG Measurement Heart [id number] CT 130P61 [id number] <Conclusion> Normal sinus rhythm Normal ECG
[2016-10-18] MEDS: Sodium Chloride 0.9% 1,000 ML IV SCH ×2 (14:30→23:14)
--- NOTE | 2016-10-18 15:11 | CP.PCM.CON ---
History of Present Illness - History of Present Illness History of Present Illness: CC: Anemia HPI: 61 year old man with history of Colon cancer S/P right hemicolectomy and chemotherapy, last colonoscopy and EGD were in Feb 2016, presents for GI consult now with microcytic anemia. Patient had similar presentation in February 2016 and underwent EGD/Colonoscopy, and was recommended to have capsule endoscopy to work up obscure GI bleeding, but that exam never materialized morris newman patient has major difficulty swallowing large pills. In fact, upon review of chart, patient had documented aspiration at attempted SB series in August, and furthermore, radiologist raised the possibility of an ENT lesion based on those xrays. He subsequently had CT of the neck, which showed numerous benign findings. Patient also has pulmonary nodule on CT this week. Leal has had 3 CT scans of the abdomen and 2 sonograms within te past year, and was never found to have any suspicious neoplastic lesions nor obvious sources of GI bleeding lesions. He consistently is found to have a fatty liver, which is interesting finding in this cachectic appearing patient. The patient denies melena or abdominal pain. 1 Stool specimen is negative for occult blood. Review of Systems - Constitutional Constitutional: Malaise, Weight Loss, Weakness - EENT Eyes: absent: Change in Vision Ears: absent: Ear Pain Nose/Mouth/Throat: absent: Change in Voice - Cardiovascular Cardiovascular: absent: Chest Pain at Rest, Dyspnea - Respiratory Respiratory: absent: Cough, Dyspnea on Exertion - Gastrointestinal Gastrointestinal: absent: Abdominal Pain, Bloating, Melena, Nausea, Vomiting - Genitourinary Genitourinary: Urinary Frequency - Musculoskeletal Musculoskeletal: absent: Back Pain - Integumentary Integumentary: absent: Change in Hair - Neurological Neurological: absent: Abnormal Hearing Past Patient History - Past Medical History & Family History Past Medical History?: Yes - Past Social History Smoking Status: Heavy Smoker > 10 Cigarettes Daily - CARDIAC Hx Hypertension: Yes - PULMONARY Hx Respiratory Disorders: No - NEUROLOGICAL HX Cerebrovascular Accident: Yes - HEENT Hx HEENT Problems: No - RENAL Hx Chronic Kidney Disease: No - ENDOCRINE/METABOLIC Hx Diabetes Mellitus Type 2: Yes - HEMATOLOGICAL/ONCOLOGICAL Hx Blood Disorders: Yes Hx Cancer: Yes (COLON CA) - INTEGUMENTARY Hx Dermatological Problems: Yes Other/Comment: dermatomyositis - MUSCULOSKELETAL/RHEUMATOLOGICAL Hx Musculoskeletal Disorders: Yes - GASTROINTESTINAL Hx Gastrointestinal Disorders: Yes Hx Bowel Surgery: Yes Other/Comment: COLON CANCER. GI Bleed= feb 2016 - GENITOURINARY/GYNECOLOGICAL Hx Genitourinary Disorders: No - PSYCHIATRIC Hx Substance Use: No - SURGICAL HISTORY Hx Surgeries: Yes Other/Comment: colon cancer surgery - ANESTHESIA Hx Anesthesia: Yes Hx Anesthesia Reactions: No Meds Allergies/Adverse Reactions: Allergies Allergy/AdvReac Type Severity Reaction Status Date / Time No Known Allergies Allergy Verified 10/17/16 13:46 - Medications Medications: Current Medications Enalapril Maleate (Vasotec) 10 mg PO Q12 [facility] Last Admin: 10/18/16 10:13 Dose: 10 mg Sodium Chloride (Sodium Chloride 0.9%) 1,000 mls @ 100 mls/hr IV .Q10H [facility] Last Admin: 10/18/16 14:30 Dose: 100 mls/hr Ciprofloxacin (Cipro 400mg/200ml Dsw) 400 mg in 200 mls @ 133 mls/hr IVPB Q12H [facility] Last Admin: 10/18/16 14:55 Dose: 133 mls/hr Insulin Human Regular (Novolin R) 0 unit SC ACHS [facility] PRN Reason: Protocol Last Admin: 10/18/16 14:50 Dose: 3 unit Pantoprazole Sodium (Protonix Inj) 40 mg IVP Q12H [facility] Last Admin: 10/18/16 05:10 Dose: 40 mg Saccharomyces Boulardii (Florastor) 250 mg PO BID [facility] Last Admin: 10/18/16 10:13 Dose: 250 mg Physical Exam - Constitutional Appears: No Acute Distress, Cachectic, Chronically Ill - Head Exam Additional comments: Bitemporal wasting - Eye Exam Eye Exam: EOMI. absent: Scleral icterus - ENT Exam ENT Exam: Normal Exam - Neck Exam Neck exam: Positive for: Normal Inspection - Respiratory Exam Respiratory Exam: NORMAL BREATHING PATTERN - Cardiovascular Exam Cardiovascular Exam: REGULAR RHYTHM - GI/Abdominal Exam GI & Abdominal Exam: Soft. absent: Organomegaly (Surgical scars), Tenderness - Rectal Exam Rectal Exam: Deferred - Extremities Exam Extremities exam: Positive for: normal inspection - Psychiatric Exam Psychiatric exam: Flat Affect Results - Vital Signs Recent Vital Signs: Last Vital Signs Temp 97.6 F 10/18/16 07:07 Pulse 56 L 10/18/16 07:07 Resp 20 10/18/16 07:07 BP 140/78 10/18/16 10:13 Pulse Ox 99 07/31/17 07:07 - Labs Result Diagrams: 10/18/16 06:17 10/18/16 06:17 Labs: Laboratory Results - last 24 hr 10/17/16 10/17/16 10/17/16 17:45 17:54 18:35 WBC RBC Hgb Hct MCV MCH MCHC RDW Plt Count MPV Neut % (Auto) Lymph % (Auto) [place] % (Auto) Eos % (Auto) Baso % (Auto) Neut # Lymph # [place] # Eos # Baso # Puncture Site Rra pCO2 32 L pO2 96 HCO3 21.3 ABG pH 7.39 ABG Total CO2 20.4 L ABG O2 Saturation 100.2 H ABG Base Excess -4.6 L Wilmer Test A ABG Potassium 4.6 Sodium 143.0 Chloride 110.0 H Glucose 105 Lactate 3.1 H Potassium Carbon Dioxide Anion Gap BUN Creatinine Est GFR ( Amer) Est GFR (Non-Af Amer) POC Glucose (mg/dL) Random Glucose Lactic Acid 3.1 H Calcium Phosphorus Magnesium Total Bilirubin AST ALT Alkaline Phosphatase Total Protein Albumin Globulin Albumin/Globulin Ratio Procalcitonin 0.06 L Free T4 TSH 3rd Generation Arterial Blood Potassium 4.6 Stool Occult Blood HIV 1&2 Antibody Screen 10/17/16 10/17/16 10/17/16 20:05 20:22 21:59 WBC RBC Hgb Hct MCV MCH MCHC RDW Plt Count MPV Neut % (Auto) Lymph % (Auto) [place] % (Auto) Eos % (Auto) Baso % (Auto) Neut # Lymph # [place] # Eos # Baso # Puncture Site pCO2 pO2 HCO3 ABG pH ABG Total CO2 ABG O2 Saturation ABG Base Excess Wilmer Test ABG Potassium Sodium Chloride Glucose Lactate Potassium Carbon Dioxide Anion Gap BUN Creatinine Est GFR ( Amer) Est GFR (Non-Af Amer) POC Glucose (mg/dL) 100 Random Glucose Lactic Acid 4.0 H* Calcium Phosphorus Magnesium Total Bilirubin AST ALT Alkaline Phosphatase Total Protein Albumin Globulin Albumin/Globulin Ratio Procalcitonin Free T4 TSH 3rd Generation Arterial Blood Potassium Stool Occult Blood Negative HIV 1&2 Antibody Screen 10/18/16 10/18/16 10/18/16 06:17 06:17 06:17 WBC 7.1 RBC 3.46 L Hgb 9.4 L D Hct 26.6 L MCV 77.0 L MCH 27.2 MCHC 35.3 RDW 16.7 H Plt Count 214 D MPV 7.6 Neut % (Auto) 72.8 Lymph % (Auto) 14.7 L [place] % (Auto) 8.7 Eos % (Auto) 2.9 Baso % (Auto) 0.9 Neut # 5.2 Lymph # 1.0 [place] # 0.6 Eos # 0.2 Baso # 0.1 Puncture Site pCO2 pO2 HCO3 ABG pH ABG Total CO2 ABG O2 Saturation ABG Base Excess Wilmer Test ABG Potassium Sodium 138 Chloride 102 Glucose Lactate Potassium 4.3 Carbon Dioxide 24 Anion Gap 17 BUN 36 H Creatinine 1.1 Est GFR ( Amer) > 60 Est GFR (Non-Af Amer) > 60 POC Glucose (mg/dL) Random Glucose 75 Lactic Acid Calcium 8.8 Phosphorus 3.9 Magnesium 1.7 Total Bilirubin 0.2 AST 40 ALT 49 Alkaline Phosphatase 41 Total Protein 6.3 Albumin 3.4 L D Globulin 2.9 Albumin/Globulin Ratio 1.2 Procalcitonin Free T4 0.90 TSH 3rd Generation 2.37 Arterial Blood Potassium Stool Occult Blood HIV 1&2 Antibody Screen 10/18/16 10/18/16 10/18/16 06:31 09:56 11:13 WBC RBC Hgb Hct MCV MCH MCHC RDW Plt Count MPV Neut % (Auto) Lymph % (Auto) [place] % (Auto) Eos % (Auto) Baso % (Auto) Neut # Lymph # [place] # Eos # Baso # Puncture Site pCO2 pO2 HCO3 ABG pH ABG Total CO2 ABG O2 Saturation ABG Base Excess Wil[place] Test ABG Potassium Sodium Chloride Glucose Lactate Potassium Carbon Dioxide Anion Gap BUN Creatinine Est GFR ( Amer) Est GFR (Non-Af Amer) POC Glucose (mg/dL) 78 202 H Random Glucose Lactic Acid Calcium Phosphorus Magnesium Total Bilirubin AST ALT Alkaline Phosphatase Total Protein Albumin Globulin Albumin/Globulin Ratio Procalcitonin Free T4 TSH 3rd Generation Arterial Blood Potassium Stool Occult Blood HIV 1&2 Antibody Screen Negative Assessment & Plan (1) Microcytic hypochromic anemia Assessment and Plan: Recent EGD/Colonoscopy without source of bleeding. Would not repeat now. Could not tolerate capsule endoscopy to evaluate Small Bowel, however 3 CT scans have not shown SB pathology. Rec: check stool OB. Monitor Hgb. Check Iron studies Status: Acute (2) History of colon cancer Assessment and Plan: Stable without colon lesions, however chest CT shows pulmonary nodule of unclear significance. It is subcentimeter. Rec: Oncology consultation, CEA level Status: Acute (3) Dysphagia Assessment and Plan: Aspiration seen on barium esophagram in February and patient with clinical dysphagia. Consider ENT evaluation (also numerous ENT findings on Neck CT in February) Status: Acute
[2016-10-18 18:22] LABS: IRON 83 ug/dL (49-181)
[2016-10-18 19:08] LABS: % IRON SATURATION 24 (20-55); TOTAL IRON BINDING CAPACITY 351 ug/dL (250-450)
[2016-10-19] MEDS: Ciprofloxacin 400mg/200ml D5W 400 MG/200 ML BAG IVPB SCH ×3 (03:16→16:35)
[2016-10-19] MEDS: Sodium Chloride 0.9% 1,000 ML IV SCH ×2 (04:55→09:44)
[2016-10-19 07:24] LABS: BASO % 0.7 % (0.0-2.0); EOS # 0.3 K/uL (0.0-0.7); EOS % 4.7 % (0.0-4.0); HEMOGLOBIN 9.3 g/dL (12.0-18.0); LYMPH # 1.1 K/uL (1.0-4.3); LYMPH % 16.7 % (20.0-40.0); MEAN CELL VOLUME 77.8 fL (80.0-94.0); MEAN CORPUSCULAR HEMOGLOBIN 26.4 pg (27.0-31.0); MEAN PLATELET VOLUME 7.7 fL (7.2-11.7); MONO # 0.6 K/uL (0.0-0.8); MONO % 8.8 % (0.0-10.0); NEUT # 4.4 K/uL (1.8-7.0); NEUT % 69.1 % (50.0-75.0); RBC 3.54 Mil/uL (4.40-5.90); RED CELL DISTRIBUTION WIDTH 16.9 % (11.5-14.5); WHITE BLOOD COUNT 6.3 K/uL (4.8-10.8)
[2016-10-19] MEDS: (Novolin R) Insulin Human Regular 100 units/ml vial SC SCH ×4 (07:38→21:54)
[2016-10-19 08:08] LABS: ALBUMIN 3.6 g/dL (3.5-5.0)
[2016-10-19 08:11] LABS: AST/SGOT 48 U/L (17-59); BLOOD UREA NITROGEN 20 mg/dL (9-20); GFR AFRICAN-AMERICAN > 60; GFR NON-AFRICAN AMERICAN > 60
[2016-10-19 08:12] LABS: ALT/SGPT 56 U/L (21-72); CALCIUM 8.8 mg/dl (8.6-10.4); MAGNESIUM 1.4 mg/dL (1.6-2.3)
[2016-10-19 08:13] LABS: HDL CHOLESTEROL 26 mg/dL (30-70)
[2016-10-19 08:20] LABS: COMPLEMENT C4 31.8 mg/dL (14.0-44.0)
[2016-10-19 08:25] LABS: LDL CHOLESTEROL 75 mg/dL (0-129)
[2016-10-19 08:26] LABS: FERRITIN 60.2 ng/mL
--- NOTE | 2016-10-19 09:38 | MRI ---
PROCEDURE: MRI NECK WITHOUT CONTRAST HISTORY: mri of neck hx of parotid mass COMPARISON: CT neck from 03/06/2016 TECHNIQUE: Multiplanar multisequence MR images of the neck were obtained without gadolinium enhancement. FINDINGS: NASOPHARYNX: Within normal limits. SUPRAHYOID NECK: The oropharynx, oral cavity, parapharyngeal space and retropharyngeal space are grossly normal in appearance. INFRAHYOID NECK: The larynx, hypopharynx, and supraglottic space are normal in appearance. Vocal cords intact. GLANDS: There is mild asymmetric enlargement of the right parotid gland. Within the superficial parotid lobe, there is a 10 x 8 15 mm T1 isointense and T2 hyperintense well-circumscribed nodule with smooth margins, not significantly changed in size since the prior CT examination from February 2016. There are few subcentimeter T1 hypointense and T2 hyperintense nodules in the superior right parotid gland and in the left parotid gland most compatible with intra parotid lymph nodes. The submandibular glands unremarkable. Normal size thyroid gland, without nodule. LYMPH NODES: No pathologic cervical chain lymphadenopathy. VASCULAR STRUCTURES: Unremarkable. OTHER FINDINGS: None. IMPRESSION: 10 x 8 x 15 mm well-circumscribed smoothly marginated nodule in the superficial right parotid gland is nonspecific. The differential considerations include pleomorphic adenoma, Warthin's tumor, intra parotid lymph node amongst others. Histopathologic correlation is advised. A preliminary report was provided by [employer].
[2016-10-19] MEDS: Dextrose 5%/0.9% NS 1,000 ML IV SCH ×2 (09:40→21:53)
--- NOTE | 2016-10-19 09:42 | CP.PCM.PN ---
<Viry Gardiner - Last Filed: 10/19/16 09:45> Subjective - Date & Time of Evaluation Date of Evaluation: 10/19/16 Time of Evaluation: 07:00 - Subjective Subjective: Medicine Note for Dr. Colindres Patient was seen and examined at bedside. He reports no acute complaints. Denied any dark, tarry stools, last BM was 2 days ago. Patient is NPO for cystoscopy scheduled for late afternoon today. Modified barium swallow scheduled for tomorrow. Denied fever, chills, headache, chest pain, abdominal pain, n/v/d/c, or urinary symptoms. Objective - Vital Signs/Intake and Output Vital Signs (last 24 hours): Temp Pulse Resp BP Pulse Ox 97.5 F L 54 L 20 141/63 100 10/18/16 23:30 10/19/16 03:58 10/18/16 23:30 10/19/16 09:40 10/18/16 23:30 Intake and Output: 10/19/16 10/19/16 06:59 18:59 Intake Total 650 Output Total 1300 Balance -650 - Medications Medications: Current Medications Enalapril Maleate (Vasotec) 10 mg PO Q12 [facility] Last Admin: 10/19/16 09:40 Dose: 10 mg Ciprofloxacin (Cipro 400mg/200ml Dsw) 400 mg in 200 mls @ 133 mls/hr IVPB Q12H [facility] Last Admin: 10/19/16 03:16 Dose: 133 mls/hr Dextrose/Sodium Chloride (Dextrose 5%/0.9% Ns 1000 Ml) 1,000 mls @ 80 mls/hr IV .[id number] [facility] Last Admin: 10/19/16 09:40 Dose: 80 mls/hr Insulin Human Regular (Novolin R) 0 unit SC ACHS [facility] PRN Reason: Protocol Last Admin: 10/19/16 07:38 Dose: Not Given Pantoprazole Sodium (Protonix Inj) 40 mg IVP Q12H [facility] Last Admin: 10/19/16 04:55 Dose: 40 mg Saccharomyces Boulardii (Florastor) 250 mg PO BID [facility] Last Admin: 10/18/16 19:23 Dose: 250 mg - Labs Labs: 10/19/16 07:08 10/19/16 07:08 PT 11.3 SECONDS (9.7-12.2) 10/17/16 14:31 INR 1.0 10/17/16 14:31 APTT 31 SECONDS (21-34) 10/17/16 14:31 - Constitutional Appears: No Acute Distress, Cachectic - Head Exam Head Exam: NORMAL INSPECTION, NORMOCEPHALIC - Eye Exam Eye Exam: EOMI, Normal appearance, PERRL - ENT Exam ENT Exam: Mucous Membranes Moist, Normal Exam - Neck Exam Neck Exam: Normal Inspection - Respiratory Exam Respiratory Exam: Clear to Ausculation Bilateral, NORMAL BREATHING PATTERN. absent: Wheezes - Cardiovascular Exam Cardiovascular Exam: REGULAR RHYTHM, RRR, +S1, +S2 - GI/Abdominal Exam GI & Abdominal Exam: Soft, Normal Bowel Sounds. absent: Distended, Tenderness - Extremities Exam Extremities Exam: Normal Inspection. absent: Pedal Edema, Tenderness - Neurological Exam Neurological Exam: Alert, Awake, Oriented x3 - Psychiatric Exam Psychiatric exam: Normal Affect, Normal Mood - Skin Skin Exam: Dry, Intact, Normal Color, Warm Assessment and Plan - Assessment and Plan (Free Text) Plan: Sepsis ID consult, Dr. Mcnair Possibly secondary UTI and Prostatitis On admission: Afebrile WBC: WNL Neutrophils: 80.9 Meet SIRS/ Sepsis Criteria: * RR: 22 * HR: 121 * Lactate: 3.7, 3.1 During Hospital Course: Afebrile WBC: WNL Neutrophils: WNL, no bandemia Labs: UA: Negative Urine culture and blood cultures- negative Lactate - 3.7, 3.1, 4.0 F/U ABG with shock Medical Management: Currently on D5 80cc/hr due to being held NPO and decreased feedings due to poor appetite Ciprofloxacin 400mg IV Q12H (started 10/18/16) Imaging: Chest X-ray: No active disease. COPD Status: Acute Prostatitis Assessment and Plan: Urology Consult, Dr. Laureano---> Bladder US ordered Bladder US (10/18/16): Prostate enlarged: 5.2 x 2.7 x 4.4cm, volume 32.9. Recommend correlation with PSA. Patient is for Cystoscopy today ID consult, Dr. Mcnair---> Continue current regimen PSA level (09/27/16) : 5.2 Repeat PSA --> 1.0 Medical Management: * Ciprofloxacin 400mg IV Q12H started on 10/18/16 Imaging: CT abdomen and Pelvis (09/25/16): * Thick-walled urinary bladder which may represent an underlying cystitis. * Prominent and enlarged prostate gland measuring up to 6.0 x 4.3 centimeters with thickened nodular calcification within the midportion of the prostate measuring 1.5 centimeters Status: Acute Dark stools Assessment and Plan: Possibly secondary to hx of peptic ulcer GI Consult: Dr. Layne/Dr. Manley (patient's private GI) for dark stools - no further intervention at this time * Patient reports he is compliant on Aspirin 81mg PO daily and Protonix prior to hospitalization. Patient noting he has been noting 3-4 days of "black stools " * Patient has hx of peptic ulcer and on NSAID * Start Protonix 40mg IV Q 12hours * Stool occult blood: negative and NELSON * F/u stool culture, ova and parasite and stool leukocytes - no BM x2 days due to decreased appetite Status: Acute Hx of Dermatomyositis Assessment and Plan: Dermatology consulted- Dr. Ly - help appreciated Elevated ESR and CRP, LDH- WNL F/U workup ordered by Dr. Ly Status: Chronic Hx of Parotid Mass Assessment and Plan: MRI of orbits, face and neck: 10 x 8 x 15 mm well-circumscribed smoothly marginated nodule in the superficial right parotid gland is nonspecific. The differential considerations include pleomorphic adenoma, Warthin's tumor, intra parotid lymph node amongst others. Histopathologic correlation is advised. Soft Tissue CT 03/05/16 - 13.9 x 10.5 mm elliptical shape enhancing lesion within the posterior superior margin of the RIGHT parotid gland. Dr. Junior consulted- help appreciated Status: Chronic Dysphasia Assessment and Plan: Dysphasia to thin liquids s/p stroke 2010. Swallow eval ordered- recommendation for modified barium swallow which will be performed tomorrow Status: Chronic Diabetes mellitus Assessment and Plan: HgbA1c (09/26/16): 7.4 Accuchecks ISS--> moderate Protocol Hold home medication: Metformin 500mg PO BID and elevated lactate Status: Acute History of hypertension Assessment and Plan: Continue home medications: * Vasotec 10mg PO BID * Monitor BP ECHO 10/04: EF 76% Status: Acute History of colon cancer Assessment and Plan: 2012- Colon cancer co-resection F/u with oncologist Dr. Krishna Pedro, December 2016 Imaging: CT abdomen and Pelvis (09/25/16): * Mild thickening of the descending and sigmoid colons which may represent an underlying mild colitis. Clinical correlation. Patient status post right hemicolectomy Status: Acute History of solitary pulmonary nodule Assessment and Plan: Imaging: CT Abdomen and Pelvis (09/25/16): * 8.4 millimeter pulmonary nodule seen within the right middle lobe laterally on series 3, image 6 previously this measured 6 millimeters. Interval increase in size since the prior study. * Atelectasis within the lingula and bilateral lung bases. Additional scattered calcified foci at the left lung base suggestive for calcified granulomatous changes. 5 millimeter subpleural pulmonary nodule at the right lobe laterally not as well appreciated the prior study. CT chest without contrast (03/03/16): * 8 mm pulmonary nodule lateral segment right middle lobe. * Peripheral nodule left lower lobe 3 mm Status: Acute Prophylactic measure Assessment and Plan: GI PPx: Protonix 40mg IV Q12H DVT PPx: Contraindication due to dark stool, SCDs PT/OT evaluation and treatment DW Abdifatah Rondon DO, PGY-1 <Josee Colindres V - Last Filed: 10/19/16 22:05> Objective - Vital Signs/Intake and Output Vital Signs (last 24 hours): Temp Pulse Resp BP Pulse Ox 97.5 F L 54 L 20 141/63 100 10/18/16 23:30 10/19/16 03:58 10/18/16 23:30 10/19/16 09:40 10/18/16 23:30 Intake and Output: 10/19/16 10/19/16 06:59 18:59 Intake Total 650 Output Total 1300 Balance -650 - Medications Medications: Current Medications Enalapril Maleate (Vasotec) 10 mg PO Q12 [facility] Last Admin: 10/19/16 09:40 Dose: 10 mg Ciprofloxacin (Cipro 400mg/200ml Dsw) 400 mg in 200 mls @ 133 mls/hr IVPB Q12H [facility] Last Admin: 10/19/16 03:16 Dose: 133 mls/hr Dextrose/Sodium Chloride (Dextrose 5%/0.9% Ns 1000 Ml) 1,000 mls @ 80 mls/hr IV .[id number] [facility] Last Admin: 10/19/16 09:40 Dose: 80 mls/hr Insulin Human Regular (Novolin R) 0 unit SC ACHS [facility] PRN Reason: Protocol Last Admin: 10/19/16 11:31 Dose: Not Given Pantoprazole Sodium (Protonix Inj) 40 mg IVP Q12H [facility] Last Admin: 10/19/16 04:55 Dose: 40 mg Saccharomyces Boulardii (Florastor) 250 mg PO BID [facility] Last Admin: 10/19/16 10:37 Dose: Not Given - Labs Labs: 10/19/16 07:08 10/19/16 07:08 PT 12.3 SECONDS (9.7-12.2) H 10/19/16 11:37 INR 1.1 10/19/16 11:37 APTT 28 SECONDS (21-34) 10/19/16 11:37 Attending/Attestation - Attestation I have personally seen and examined this patient.: Yes I have fully participated in the care of the patient.: Yes I have reviewed all pertinent clinical information, including history, physical exam and plan: Yes Notes (Text): Patient seen, examined and case discussed with day-time resident. Patient is intermediate risk for urologic procedure. Pulmonary (Dr. Kang) consulted-->cleared for procedure by pulmonary. EKG (10/17/16) was normal sinus rhythm. Repeat ABG completed. Lactate: imprioved to 1.7 Patient is NPO for possible urologic procedure today this afternoon. Discussed with urology post-procedure, will need prostate biopsy as outpatient and to follow-up with Willy Laureano (urology) upon discharge Patient's PSA has come down to within normal limits. Patient's renal US shows enlarged prostate with urinary retention. Patient reports he has not had a bowel movement in the past 2 days. (1) Sepsis Status: Acute Comment: * Admit to telemetry * Infectious disease director clinical applications (Dr. Mcnair)--on consult f/u recommendations * 10/19: continue current management; urologically stable for discharge with recommendation for prostate biopsy as outpatient * 10/18: Urine culture: no growth: Blood cultures remain negative; on IV Abx; f/ u urology and ID; pending PSA * 10/17: Code sepsis called in the ED. Criteria: tachycardia, tachypnea, suspected source of infection uti/prostatitis; lactate 3.7-->given 2 IV Abx, fluid bolus, and f/u lactic acid ordered 3 hours apart * Labs: Ordered for following: F/u urine culture, F/u blood cultures X2, f/u procalcitonin, and f/u repeat lactate * start NS 0.9% @ 100mls/hr * Start Ciprofloxacin 400mg IV Q12H (active since 10/17/16) sensitive to urine culture from last admission * CT Abdomen/Pelvis CT (09/25/16) (IV contrast only)- Thick-walled urinary bladder which may represent an underlying cystitis. Prominent and enlarged prostate gland measuring 6.0x 4.3 cm with thickened nodular calcification. Mild thickening of descending sigmoid colon which my represent an underlying mild colitis. 8.4mm pulmonary nodule seen within the right middle lobe. Atelectasis within lingula and biateral lung bases. Fatty liver. (Please see full report) (2) UTI (urinary tract infection) Status: Acute Comment: * See Sepsis. f/u urine culture; on IV abx (3) Urinary hesitancy Status: Acute Comment: * 10/19: continue current management; urologically stable for discharge with recommendation for prostate biopsy as outpatient; wnl PSA * 10/18: f/u urology; pending PSA * Urology director clinical applications (Dr. Tiffani Laureano)--f/u reason: enlarged prostate, elevated PSA, urine hesitancy, UTI symptoms * Prior PSA in last admission: patient had elevated PSA in context of UTI symptoms PSA level (09/27/16) : 5.27 * CT Abdomen/Pelvis CT (09/25/16)- Thick-walled urinary bladder which may represent an underlying cystitis. Prominent and enlarged prostate gland measuring 6.0x 4.3 cm with thickened nodular calcification. Mild thickening of descending sigmoid colon which my represent an underlying mild colitis. 8.4mm pulmonary nodule seen within the right middle lobe. Atelectasis within lingula and bilateral lung bases. Fatty liver. (PLease see full report). * f/u PSA (Free/ total) (4) Dark stools Assessment and Plan: * 10/19: H/H stable in 9s, has not had a bowel movement in 2 days; iron levels normal * 10/18: Per gi: check stool ob, monitor hgb/iron studies; prior egd/colonscopy no source of bleeding: no repeat now; * 10/17: GI Consult: Dr. Layne/Dr. Manley (patient's private GI) for dark stools * Patient reports he is compliant on Aspirin 81mg PO daily and Protonix prior to hospitalization. Patient noting he has been noting 3-4 days of "black stools " * Patient has hx of peptic ulcer and on NSAID * Start Protonix 40mg IV Q 12hours * F/u stool occult blood: negative and NELSON * F/u stool culture, ova and parasite and stool leukocytes Status: suspected (5) Hypomagnesemia Assessment and Plan: * 10/19: low; replete Status: Acute (6) Acute kidney injury Assessment and Plan: * Stable on IV fluids; urology on board Status: acute (7) Diabetes mellitus Comment: * 10/19: hgba1c: 7.1 T Chol:125 LDL:75 HDL: 26 * 10/17: held Metformin 500mg PO BID given patient has elevated lactic acid. Order for lipid panel, a1c in AM; Hgba1c: 7.4 last admission; insulin sliding subq (low dose) Status: Chronic (8) History of hypertension Assessment and Plan: * 10/19: continue current management * 10/18: continue current management * 10/17: monitor vital signs; patient is currently on IV fluids; will hold enalapril at this time Status: Chronic (9) Enlarged prostate Assessment and Plan: * 10/19: continue current management; urologically stable for discharge with recommendation for prostate biopsy as outpatient; wnl PSA * 10/18: f/u urology; pending PSA * 10/17 Urology Consult, Dr. Tiffani Laureano---> Help appreciated; * PSA level (09/27/16) : 5.27 (in context of UTI) * Prior Imaging--> CT abdomen and Pelvis (09/25/16): * Thick-walled urinary bladder which may represent an underlying cystitis. * Prominent and enlarged prostate gland measuring up to 6.0 x 4.3 centimeters with thickened nodular calcification within the midportion of the prostate measuring 1.5 centimeters Status: Chronic (10) History of colon cancer Assessment and Plan: * 10/18: f/u CEA * 10/17: Patient to follow-up with heme-onc, Dr Malathi Pedro in 12/2016. Status: Chronic (10) History of solitary pulmonary nodule Assessment and Plan: Imaging: CT Abdomen and Pelvis (09/25/16): * 8.4 millimeter pulmonary nodule seen within the right middle lobe laterally on series 3, image 6 previously this measured 6 millimeters. Interval increase in size since the prior study. * Atelectasis within the lingula and bilateral lung bases. Additional scattered calcified foci at the left lung base suggestive for calcified granulomatous changes. 5 millimeter subpleural pulmonary nodule at the right lobe laterally not as well appreciated the prior study. CT chest without contrast (03/03/16): * 8 mm pulmonary nodule lateral segment right middle lobe. * Peripheral nodule left lower lobe 3 mm Status: Chronic (11) History of partoid lesion * 10/19: Per ENT; will need partoid biospy * 10/18: Consult ENT (Dr. Junior): dysphagia and abnormal lesions; patient did not follow-up since February admission * Prior imaging: Ct scan (03/06/16): mild asymmetry of the true and false vocal cords on the right side; 13.9 X10.5mm elliptical shaped enhancing lesion possibly within the posterior superior margin of the right partoid gland Status: Acute (12): Dysphagia * 10/19: pending modified barium swallow * 10/18: Swallow eval assessed patient-->recommended for modified barium swallow and ent evaluation; patient reports he has had dysphagia to liquid sonly stemming from prior TIA/Stroke in 2012 wherein he needed a feeding tube Status: Acute (13) Prophylactic measure Status: Acute Comment: * SCDs. held VTE anticogulation given possiblity of GI bleed given "dark stools ". * Protonix 40mg IV q daily * PT/OT eval * veterinary dentist referral Status: Acute
--- NOTE | 2016-10-19 10:08 | CP.PCM.PN ---
Subjective - Date & Time of Evaluation Date of Evaluation: 10/19/16 Time of Evaluation: 09:00 - Subjective Subjective: denies fever/ chills awake alert iv rx in progress GI on board cachexia ++ Objective - Vital Signs/Intake and Output Vital Signs (last 24 hours): Temp Pulse Resp BP Pulse Ox 97.5 F L 54 L 20 141/63 100 10/18/16 23:30 10/19/16 03:58 10/18/16 23:30 10/19/16 09:40 10/18/16 23:30 Intake and Output: 10/19/16 10/19/16 06:59 18:59 Intake Total 650 Output Total 1300 Balance -650 - Medications Medications: Current Medications Enalapril Maleate (Vasotec) 10 mg PO Q12 [facility] Last Admin: 10/19/16 09:40 Dose: 10 mg Ciprofloxacin (Cipro 400mg/200ml Dsw) 400 mg in 200 mls @ 133 mls/hr IVPB Q12H [facility] Last Admin: 10/19/16 03:16 Dose: 133 mls/hr Dextrose/Sodium Chloride (Dextrose 5%/0.9% Ns 1000 Ml) 1,000 mls @ 80 mls/hr IV .[id number] [facility] Last Admin: 10/19/16 09:40 Dose: 80 mls/hr Insulin Human Regular (Novolin R) 0 unit SC ACHS [facility] PRN Reason: Protocol Last Admin: 10/19/16 07:38 Dose: Not Given Pantoprazole Sodium (Protonix Inj) 40 mg IVP Q12H [facility] Last Admin: 10/19/16 04:55 Dose: 40 mg Saccharomyces Boulardii (Florastor) 250 mg PO BID [facility] Last Admin: 10/18/16 19:23 Dose: 250 mg - Labs Labs: 10/19/16 07:08 10/19/16 07:08 PT 11.3 SECONDS (9.7-12.2) 10/17/16 14:31 INR 1.0 10/17/16 14:31 APTT 31 SECONDS (21-34) 10/17/16 14:31 - Constitutional Appears: Non-toxic, Cachectic, Chronically Ill - Head Exam Head Exam: NORMOCEPHALIC - Eye Exam Eye Exam: PERRL. absent: Scleral icterus - ENT Exam ENT Exam: Mucous Membranes Dry - Neck Exam Neck Exam: absent: Lymphadenopathy - Respiratory Exam Respiratory Exam: Decreased Breath Sounds, Rhonchi - Cardiovascular Exam Cardiovascular Exam: REGULAR RHYTHM - GI/Abdominal Exam GI & Abdominal Exam: Distended, Soft - Rectal Exam Rectal Exam: Deferred - Exam Exam: absent: Testicular Tenderness - Extremities Exam Extremities Exam: absent: Calf Tenderness, Pedal Edema - Back Exam Back Exam: absent: CVA tenderness (L), CVA tenderness (R) - Neurological Exam Neurological Exam: Alert, Awake, Oriented x3 - Psychiatric Exam Psychiatric exam: Depressed - Skin Skin Exam: Dry Assessment and Plan - Assessment and Plan (Free Text) Assessment: 61 year old man with history of Colon cancer S/P right hemicolectomy and chemotherapy, last colonoscopy and EGD were in Feb 2016, presents for GI consult now with microcytic anemia. Patient had similar presentation in February 2016 and underwent EGD/Colonoscopy, and was recommended to have capsule endoscopy to work up obscure GI bleeding, but that exam never materialized morris newman patient has major difficulty swallowing large pills. In fact, upon review of chart, patient had documented aspiration at attempted SB series in August, and furthermore, radiologist raised the possibility of an ENT lesion based on those xrays. He subsequently had CT of the neck, which showed numerous benign findings. Patient also has pulmonary nodule on CT this week. Leal has had 3 CT scans of the abdomen and 2 sonograms within te past year, and was never found to have any suspicious neoplastic lesions nor obvious sources of GI bleeding lesions. He consistently is found to have a fatty liver, which is interesting finding in this cachectic appearing patient. Plan: cachexia hx bph uti on rx follow up Dr Layne
[2016-10-19 10:19] LABS: ABG ALLEN TEST PO; ARTERIAL BLOOD GAS HCO3 24.7 mmol/L (21-28); ARTERIAL BLOOD GAS O2 SAT 99.4 % (95-98); ARTERIAL BLOOD GAS PCO2 32 mm/Hg (35-45); ARTERIAL BLOOD GAS PH 7.46 (7.35-7.45); ARTERIAL BLOOD GAS PO2 110 mm/Hg (80-100); ARTERIAL BLOOD GAS TCO2 23.8 mmol/L (22-28)
[2016-10-19] MEDS: Saccharomyces Boulardi 250 mg Cap PO SCH ×2 (10:37→19:19)
[2016-10-19 11:53] LABS: INR 1.1; PROTHROMBIN TIME 12.3 SECONDS (9.7-12.2)
[2016-10-19 11:59] LABS: ANTI SREPTOLYSIN O POSITIVE (NEGATIVE)
[2016-10-19 12:00] LABS: ASO TITER =>200 IU/ML (NEGATIVE)
[2016-10-19] MEDS ORDERED: Magnesium Sulfate 1 gm in D5W 1 GM/100 ML BAG IVPB ONE (12:25)
--- NOTE | 2016-10-19 15:05 | CON ---
DATE: 10/19/2016 HISTORY OF PRESENT ILLNESS: A 61-year-old male admitted with chief complaint of weakness, fatigue, tiredness, possible sepsis. The patient gives history of dermatomyositis at the age of 7. He also has muscular disability. The patient did not see any physicians since childhood for this illness, and he does not take medicines for that. The patient is a smoker, smokes cigar. PHYSICAL EXAMINATION: GENERAL: The patient is awake, alert, under built. HEENT: He has a prominent forehead. NECK: Supple. CHEST: Symmetrical. Good air entry. HEART: Regular. ABDOMEN: Soft. EXTREMITIES: He does have a significant muscle wasting and thickening of the skin. Roughness to touch. The patient suffers from of the colon, lung nodules appear to be stable. At this point, the patient may go for the cystoscopy, CAT scan of the chest and abdomen, for lung nodule evaluation and oncology evaluation is probably in order. Calli Kang MD
[2016-10-19] MEDS ORDERED: cefTRIAXone IV 1 gm in Dextros 0 ML IVPB ONE (16:20)
[2016-10-19] MEDS ORDERED: Iohexol 240 (50 ml) ONE (16:20)
[2016-10-19] MEDS ORDERED: Propofol 10 mg/ml Inj (20 ML) ONE (16:28)
[2016-10-19] MEDS ORDERED: Lactated Ringer's 1,000 ML IV ONE (16:30)
--- NOTE | 2016-10-19 16:33 | PCM.URO ---
Urology Progress Note - Objective Lab Results Last 24 Hours: Laboratory Results - last 24 hr 10/18/16 10/18/16 10/18/16 16:25 16:50 16:50 WBC RBC Hgb Hct MCV MCH MCHC RDW Plt Count MPV Neut % (Auto) Lymph % (Auto) Haakon % (Auto) Eos % (Auto) Baso % (Auto) Neut # Lymph # Haakon # Eos # Baso # ESR PT INR APTT Puncture Site pCO2 pO2 HCO3 ABG pH ABG Total CO2 ABG O2 Saturation ABG Base Excess Wilmer Test ABG Potassium A-a O2 Difference Respiratory Index Glucose Lactate FiO2 Sodium Potassium Chloride Carbon Dioxide Anion Gap BUN Creatinine Est GFR ( Amer) Est GFR (Non-Af Amer) POC Glucose (mg/dL) 142 H Random Glucose Hemoglobin A1c Calcium Phosphorus Magnesium Iron TIBC % Saturation Ferritin Total Bilirubin AST ALT Alkaline Phosphatase Lactate Dehydrogenase 322 C-React Prot High Sens 7.03 H Total Protein Albumin Globulin Albumin/Globulin Ratio Triglycerides Cholesterol LDL Cholesterol Direct HDL Cholesterol Carcinoembryonic Ag Prostate Specific Ag 1.08 Arterial Blood Potassium Complement C3 Complement C4 Anti-Staphylolysin O Anti-Streptolysin Titr 10/18/16 10/18/16 10/18/16 16:50 17:46 20:49 WBC RBC Hgb Hct MCV MCH MCHC RDW Plt Count MPV Neut % (Auto) Lymph % (Auto) Haakon % (Auto) Eos % (Auto) Baso % (Auto) Neut # Lymph # Haakon # Eos # Baso # ESR 49 H PT INR APTT Puncture Site pCO2 pO2 HCO3 ABG pH ABG Total CO2 ABG O2 Saturation ABG Base Excess Wilmer Test ABG Potassium A-a O2 Difference Respiratory Index Glucose Lactate FiO2 Sodium Potassium Chloride Carbon Dioxide Anion Gap BUN Creatinine Est GFR ( Amer) Est GFR (Non-Af Amer) POC Glucose (mg/dL) 105 Random Glucose Hemoglobin A1c Calcium Phosphorus Magnesium Iron 83 TIBC 351 % Saturation 24 Ferritin Total Bilirubin AST ALT Alkaline Phosphatase Lactate Dehydrogenase C-React Prot High Sens Total Protein Albumin Globulin Albumin/Globulin Ratio Triglycerides Cholesterol LDL Cholesterol Direct HDL Cholesterol Carcinoembryonic Ag Prostate Specific Ag Arterial Blood Potassium Complement C3 Complement C4 Anti-Staphylolysin O Anti-Streptolysin Titr 10/19/16 10/19/16 10/19/16 06:53 07:08 07:08 WBC 6.3 RBC 3.54 L Hgb 9.3 L Hct 27.5 L MCV 77.8 L MCH 26.4 L MCHC 34.0 RDW 16.9 H Plt Count 221 MPV 7.7 Neut % (Auto) 69.1 Lymph % (Auto) 16.7 L Haakon % (Auto) 8.8 Eos % (Auto) 4.7 H Baso % (Auto) 0.7 Neut # 4.4 Lymph # 1.1 Haakon # 0.6 Eos # 0.3 Baso # 0.0 ESR PT INR APTT Puncture Site pCO2 pO2 HCO3 ABG pH ABG Total CO2 ABG O2 Saturation ABG Base Excess Wilmer Test ABG Potassium A-a O2 Difference Respiratory Index Glucose Lactate FiO2 Sodium 140 Potassium 4.1 Chloride 101 Carbon Dioxide 25 Anion Gap 18 BUN 20 Creatinine 1.0 Est GFR ( Amer) > 60 Est GFR (Non-Af Amer) > 60 POC Glucose (mg/dL) 91 Random Glucose 83 Hemoglobin A1c Calcium 8.8 Phosphorus 3.4 Magnesium 1.4 L Iron TIBC % Saturation Ferritin 60.2 Total Bilirubin 0.6 AST 48 ALT 56 Alkaline Phosphatase 43 Lactate Dehydrogenase C-React Prot High Sens Total Protein 7.1 Albumin 3.6 Globulin 3.5 Albumin/Globulin Ratio 1.0 Triglycerides 169 H Cholesterol 125 LDL Cholesterol Direct 75 HDL Cholesterol 26 L Carcinoembryonic Ag 1.4 Prostate Specific Ag Arterial Blood Potassium Complement C3 Complement C4 Anti-Staphylolysin O Anti-Streptolysin Titr 10/19/16 10/19/16 10/19/16 07:08 07:08 07:08 WBC RBC Hgb Hct MCV MCH MCHC RDW Plt Count MPV Neut % (Auto) Lymph % (Auto) Haakon % (Auto) Eos % (Auto) Baso % (Auto) Neut # Lymph # Haakon # Eos # Baso # ESR PT INR APTT Puncture Site pCO2 pO2 HCO3 ABG pH ABG Total CO2 ABG O2 Saturation ABG Base Excess Wilmer Test ABG Potassium A-a O2 Difference Respiratory Index Glucose Lactate FiO2 Sodium Potassium Chloride Carbon Dioxide Anion Gap BUN Creatinine Est GFR ( Amer) Est GFR (Non-Af Amer) POC Glucose (mg/dL) Random Glucose Hemoglobin A1c 7.1 H Calcium Phosphorus Magnesium Iron TIBC % Saturation Ferritin Total Bilirubin AST ALT Alkaline Phosphatase Lactate Dehydrogenase C-React Prot High Sens 5.89 H Total Protein Albumin Globulin Albumin/Globulin Ratio Triglycerides Cholesterol LDL Cholesterol Direct HDL Cholesterol Carcinoembryonic Ag Prostate Specific Ag Arterial Blood Potassium Complement C3 119.0 Complement C4 31.8 Anti-Staphylolysin O Positive H Anti-Streptolysin Titr =>200 iu/ml 10/19/16 10/19/16 10/19/16 10:16 11:01 11:37 WBC RBC Hgb Hct MCV MCH MCHC RDW Plt Count MPV Neut % (Auto) Lymph % (Auto) Haakon % (Auto) Eos % (Auto) Baso % (Auto) Neut # Lymph # Haakon # Eos # Baso # ESR PT 12.3 H INR 1.1 APTT 28 Puncture Site Rra pCO2 32 L pO2 110 H HCO3 24.7 ABG pH 7.46 H ABG Total CO2 23.8 ABG O2 Saturation 99.4 H ABG Base Excess -0.3 Wilmer Test Po ABG Potassium 3.8 A-a O2 Difference 0.0 Respiratory Index 0 Glucose 93 Lactate 1.7 FiO2 21.0 Sodium 142.0 Potassium Chloride 113.0 H Carbon Dioxide Anion Gap BUN Creatinine Est GFR ( Amer) Est GFR (Non-Af Amer) POC Glucose (mg/dL) 103 Random Glucose Hemoglobin A1c Calcium Phosphorus Magnesium Iron TIBC % Saturation Ferritin Total Bilirubin AST ALT Alkaline Phosphatase Lactate Dehydrogenase C-React Prot High Sens Total Protein Albumin Globulin Albumin/Globulin Ratio Triglycerides Cholesterol LDL Cholesterol Direct HDL Cholesterol Carcinoembryonic Ag Prostate Specific Ag Arterial Blood Potassium 3.8 Complement C3 Complement C4 Anti-Staphylolysin O Anti-Streptolysin Titr Intake & Output: Intake & Output 10/18/16 10/19/16 10/19/16 18:59 06:59 18:59 Intake Total 650 660 Output Total 200 1300 Balance -200 -650 660 Intake: Intake, IV Amount 650 660 Left Forearm 650 660 Output: Urine 200 1300 Urine, Voided 200 1300 Other: # Voids Urine, Voided 1 Vital Signs: Vital Signs - 24 hr 10/18/16 10/18/16 10/19/16 22:34 23:30 00:03 Temperature 97.5 F L Pulse Rate 62 63 Respiratory 20 Rate Blood Pressure 161/81 H 137/74 O2 Sat by Pulse 100 Oximetry 10/19/16 10/19/16 03:58 09:40 Temperature Pulse Rate 54 L Respiratory Rate Blood Pressure 141/63 O2 Sat by Pulse Oximetry
[2016-10-19] MEDS ORDERED: Gentamicin 80 mg in 0.9% NS 160 MG/200 ML BAG IVPB ONE (16:36)
[2016-10-19] MEDS ORDERED: HYDROmorphone 0.5 mg/0.5 ml ISec IVP PRN (17:03)
[2016-10-19] MEDS: Gentamicin 160 MG in Sodium Chloride 0.9% 100 ML IVPB SCH (19:19)
[2016-10-20] MEDS: Ciprofloxacin 400mg/200ml D5W 400 MG/200 ML BAG IVPB SCH ×2 (02:53→13:00)
[2016-10-20] MEDS: Dextrose 5%/0.9% NS 1,000 ML IV SCH ×2 (02:53→11:30)
[2016-10-20 07:25] LABS: BASO # 0.1 K/uL (0.0-0.2); BASO % 0.9 % (0.0-2.0); EOS # 0.3 K/uL (0.0-0.7); EOS % 4.7 % (0.0-4.0); HEMOGLOBIN 8.8 g/dL (12.0-18.0); LYMPH % 16.6 % (20.0-40.0); MEAN CELL VOLUME 78.1 fL (80.0-94.0); MEAN CORPUSCULAR HEMOGLOBIN 26.6 pg (27.0-31.0); MEAN PLATELET VOLUME 7.7 fL (7.2-11.7); MONO # 0.6 K/uL (0.0-0.8); MONO % 9.1 % (0.0-10.0); NEUT # 4.3 K/uL (1.8-7.0); NEUT % 68.7 % (50.0-75.0); RBC 3.31 Mil/uL (4.40-5.90); RED CELL DISTRIBUTION WIDTH 17.1 % (11.5-14.5); WHITE BLOOD COUNT 6.3 K/uL (4.8-10.8)
[2016-10-20] MEDS: (Novolin R) Insulin Human Regular 100 units/ml vial SC SCH ×4 (07:30→21:37)
[2016-10-20 07:41] LABS: ALBUMIN 3.3 g/dL (3.5-5.0)
[2016-10-20 07:44] LABS: AST/SGOT 42 U/L (17-59); GFR AFRICAN-AMERICAN > 60; GFR NON-AFRICAN AMERICAN > 60
[2016-10-20 07:45] LABS: ALT/SGPT 53 U/L (21-72); BLOOD UREA NITROGEN 16 mg/dL (9-20); CALCIUM 8.3 mg/dl (8.6-10.4); MAGNESIUM 1.4 mg/dL (1.6-2.3)
--- NOTE | 2016-10-20 08:18 | RAD ---
HISTORY: UTI COMPARISON: No prior. FINDINGS: BOWEL: A qa reviewer film of the abdomen demonstrates the bowel gas pattern to be unremarkable. There is a 4 mm calcification in the left upper quadrant of the abdomen, above the level of the upper pole left kidney. No masses are identified. Single film from a retrograde hilar reader of g demonstrates contrast material within the right and left renal collecting systems and within the right ureter and distal half of the left ureter. Please see report from Dr. Willy Laureano for full evaluation. BONES: Normal. OTHER FINDINGS: None. IMPRESSION: Retrograde pyelo ureteral atrophy performed.
--- NOTE | 2016-10-20 08:51 | CP.PCM.PN ---
Addendum entered and electronically signed by Viry Gardiner DO 10/20/16 12:09 : Modified barium swallow showed: tracheoesophageal fistula. Patient placed NPO Patient will need to be transferred to a facility, since there is no Cardiothoracic surgeon provisioning analyst this week. We are in the process of arranging this. As per conversation with Pulmonology about pulmonary nodules: patient is to have an outpatient PET Scan. Original Note: <Viry Gardiner - Last Filed: 10/20/16 10:07> Subjective - Date & Time of Evaluation Date of Evaluation: 10/20/16 Time of Evaluation: 07:00 - Subjective Subjective: Medicine Note for Dr. Colindres Patient was seen and examined at bedside. He reports no acute complaints. Denied any dark, tarry stools, last BM was Tuesday10/17/16. Patient reports blood tinged urine, he was reassured this was normal since he is s/p cystoscopy. Modified barium swallow scheduled for today. Denied fever, chills, headache, chest pain, abdominal pain, n/v/d/c, or urinary symptoms. Objective - Vital Signs/Intake and Output Vital Signs (last 24 hours): Temp Pulse Resp BP Pulse Ox 98.5 F 63 20 119/73 98 10/20/16 08:38 10/20/16 08:38 10/20/16 08:38 10/20/16 08:38 10/20/16 08:38 Intake and Output: 10/20/16 10/20/16 06:59 18:59 Intake Total 440 Output Total 800 Balance -360 - Medications Medications: Current Medications Enalapril Maleate (Vasotec) 10 mg PO Q12 [facility] Last Admin: 10/19/16 23:00 Dose: Not Given Ciprofloxacin (Cipro 400mg/200ml Dsw) 400 mg in 200 mls @ 133 mls/hr IVPB Q12H [facility] Last Admin: 10/20/16 02:53 Dose: 133 mls/hr Dextrose/Sodium Chloride (Dextrose 5%/0.9% Ns 1000 Ml) 1,000 mls @ 80 mls/hr IV .[id number] [facility] Last Admin: 10/20/16 02:53 Dose: 80 mls/hr Gentamicin Sulfate 160 mg/ (Sodium Chloride) 104 mls @ 100 mls/hr IVPB Q24H [facility] Last Admin: 10/19/16 19:19 Dose: Not Given Magnesium Sulfate/Dextrose (Magnesium Sulfate 1 Gm/100 Ml D5w) 1 gm in 100 mls @ 300 mls/hr IVPB Q30M [facility] Stop: 10/20/16 09:34 Insulin Human Regular (Novolin R) 0 unit SC ACHS [facility] PRN Reason: Protocol Last Admin: 10/19/16 21:54 Dose: Not Given Pantoprazole Sodium (Protonix Inj) 40 mg IVP Q12H [facility] Last Admin: 10/20/16 05:11 Dose: 40 mg Saccharomyces Boulardii (Florastor) 250 mg PO BID [facility] Last Admin: 10/19/16 19:19 Dose: 250 mg - Labs Labs: 10/20/16 07:02 10/20/16 07:02 PT 12.3 SECONDS (9.7-12.2) H 10/19/16 11:37 INR 1.1 10/19/16 11:37 APTT 28 SECONDS (21-34) 10/19/16 11:37 - Constitutional Appears: No Acute Distress, Cachectic - Head Exam Head Exam: NORMAL INSPECTION, NORMOCEPHALIC - Eye Exam Eye Exam: EOMI, Normal appearance, PERRL Pupil Exam: NORMAL ACCOMODATION - ENT Exam ENT Exam: Mucous Membranes Moist, Normal Exam - Respiratory Exam Respiratory Exam: Clear to Ausculation Bilateral, NORMAL BREATHING PATTERN. absent: Wheezes - Cardiovascular Exam Cardiovascular Exam: REGULAR RHYTHM, RRR, +S1, +S2 - GI/Abdominal Exam GI & Abdominal Exam: Soft, Normal Bowel Sounds. absent: Distended, Tenderness - Extremities Exam Extremities Exam: Normal Inspection. absent: Pedal Edema, Tenderness - Neurological Exam Neurological Exam: Alert, Awake, Oriented x3 - Psychiatric Exam Psychiatric exam: Normal Affect, Normal Mood - Skin Skin Exam: Dry, Intact, Normal Color, Warm Assessment and Plan - Assessment and Plan (Free Text) Plan: Sepsis ID consult, Dr. Mcnair Possibly secondary UTI and Prostatitis On admission: Afebrile WBC: WNL Neutrophils: 80.9 Meet SIRS/ Sepsis Criteria: * RR: 22 * HR: 121 * Lactate: 3.7, 3.1 During Hospital Course: Afebrile WBC: WNL Neutrophils: WNL, no bandemia Labs: UA: Negative Urine culture and blood cultures- negative Lactate - 3.7, 3.1, 4.0 ABG - WNL, lactate = 1.7 Medical Management: Currently on D5 80cc/hr due to being held NPO for barium swallow Ciprofloxacin 400mg IV Q12H (started 10/18/16)--> switched to Cipro 250mg PO BID Imaging: Chest X-ray: No active disease. COPD Status: Acute Prostatitis Assessment and Plan: Urology Consult, Dr. Laureano---> Bladder US ordered Bladder US (10/18/16): Prostate enlarged: 5.2 x 2.7 x 4.4cm, volume 32.9. Recommend correlation with PSA. S/P Cystoscopy: Recommendation for prostate biopsy as outpatient. As per Dr. Laureano patient is safe for discharge from urological standpoint. ID consult, Dr. Mcnair PSA level (09/27/16) : 5.2 Repeat PSA --> 1.0 Started on Flomax 0.4mg PO daily Medical Management: * Ciprofloxacin 400mg IV Q12H (started 10/18/16)--> switched to Cipro 250mg PO BID Imaging: CT abdomen and Pelvis (09/25/16): * Thick-walled urinary bladder which may represent an underlying cystitis. * Prominent and enlarged prostate gland measuring up to 6.0 x 4.3 centimeters with thickened nodular calcification within the midportion of the prostate measuring 1.5 centimeters Status: Acute Hx of Parotid Mass Assessment and Plan: MRI of orbits, face and neck: 10 x 8 x 15 mm well-circumscribed smoothly marginated nodule in the superficial right parotid gland is nonspecific. The differential considerations include pleomorphic adenoma, Warthin's tumor, intra parotid lymph node amongst others. Histopathologic correlation is advised. Soft Tissue CT 03/05/16 - 13.9 x 10.5 mm elliptical shape enhancing lesion within the posterior superior margin of the RIGHT parotid gland. Dr. Junior consulted- patient will need parotid biopsy; pending inpatient vs outpatient Status: Chronic Dysphasia Assessment and Plan: Dysphasia to thin liquids s/p stroke 2010. Swallow eval ordered- recommendation for modified barium swallow which will be performed today Status: Chronic Hypomagnesemia Assessment and Plan: Repleted Status: Acute Hx of Dermatomyositis Assessment and Plan: Dermatology consulted- Dr. Ly - help appreciated Elevated ESR and CRP, LDH- WNL F/U workup ordered by Dr. Ly Status: Chronic Dark stools Assessment and Plan: Possibly secondary to hx of peptic ulcer GI Consult: Dr. Layne/Dr. Manley (patient's private GI) for dark stools - no further intervention at this time * Patient reports he is compliant on Aspirin 81mg PO daily and Protonix prior to hospitalization. Patient noting he has been noting 3-4 days of "black stools " * Patient has hx of peptic ulcer and on NSAID * Start Protonix 40mg IV Q 12hours * Stool occult blood: negative and NELSON * F/u stool culture, ova and parasite and stool leukocytes - no BM x3 days due to decreased appetite, given Miralax, pending repeat stool occult. Status: Acute Diabetes mellitus Assessment and Plan: HgbA1c (09/26/16): 7.4 Accuchecks ISS--> moderate Protocol Hold home medication: Metformin 500mg PO BID and elevated lactate Status: Acute History of hypertension Assessment and Plan: Continue home medications: * Vasotec 10mg PO BID * Monitor BP ECHO 10/04: EF 76% Status: Acute History of colon cancer Assessment and Plan: 2012- Colon cancer co-resection F/u with oncologist Dr. Krishna Pedro, December 2016 Imaging: CT abdomen and Pelvis (09/25/16): * Mild thickening of the descending and sigmoid colons which may represent an underlying mild colitis. Clinical correlation. Patient status post right hemicolectomy Status: Acute History of solitary pulmonary nodule Assessment and Plan: Pulmonology consulted - Dr. Kang - help appreciated due to interval increase in size 8.0 (02/2016) --> 8.4 mm RLL Pulmonary nodule Imaging: CT Abdomen and Pelvis (09/25/16): * 8.4 millimeter pulmonary nodule seen within the right middle lobe laterally on series 3, image 6 previously this measured 6 millimeters. Interval increase in size since the prior study. * Atelectasis within the lingula and bilateral lung bases. Additional scattered calcified foci at the left lung base suggestive for calcified granulomatous changes. 5 millimeter subpleural pulmonary nodule at the right lobe laterally not as well appreciated the prior study. CT chest without contrast (03/03/16): * 8 mm pulmonary nodule lateral segment right middle lobe. * Peripheral nodule left lower lobe 3 mm Status: Acute Prophylactic measure Assessment and Plan: GI PPx: Protonix 40mg IV Q12H DVT PPx: Contraindication due to dark stool, SCDs PT/OT evaluation and treatment - Patient wants to go back home. Refused SIMONE. DW Dr. Colindres, Abdifatah FRANKLIN, PGY-1 <Josee Colindres V - Last Filed: 10/21/16 07:28> Objective - Vital Signs/Intake and Output Vital Signs (last 24 hours): Temp Pulse Resp BP Pulse Ox 97.4 F L 56 L 20 134/74 99 10/20/16 23:35 10/21/16 00:00 10/20/16 23:35 10/20/16 15:51 10/20/16 23:35 Intake and Output: 10/21/16 10/21/16 06:59 18:59 Intake Total 480 Output Total 1050 Balance -570 - Medications Medications: Current Medications Enalapril Maleate (Vasotec) 10 mg PO Q12 [facility] Last Admin: 10/20/16 21:36 Dose: Not Given Dextrose/Sodium Chloride (Dextrose 5%/0.9% Ns 1000 Ml) 1,000 mls @ 80 mls/hr IV .[id number] [facility] Last Admin: 10/21/16 04:16 Dose: 80 mls/hr Gentamicin Sulfate 160 mg/ (Sodium Chloride) 104 mls @ 100 mls/hr IVPB Q24H [facility] Last Admin: 10/20/16 17:31 Dose: 100 mls/hr Ciprofloxacin (Cipro 400mg/200ml Dsw) 400 mg in 200 mls @ 133 mls/hr IVPB Q12H [facility] Last Admin: 10/21/16 00:30 Dose: 133 mls/hr Insulin Human Regular (Novolin R) 0 unit SC ACHS [facility] PRN Reason: Protocol Last Admin: 10/20/16 21:37 Dose: Not Given Pantoprazole Sodium (Protonix Inj) 40 mg IVP Q12H [facility] Last Admin: 10/21/16 04:16 Dose: 40 mg Saccharomyces Boulardii (Florastor) 250 mg PO BID [facility] Last Admin: 10/20/16 17:29 Dose: 250 mg Tamsulosin HCl (Flomax) 0.4 mg PO DAILY [facility] Last Admin: 10/20/16 11:00 Dose: Not Given - Labs Labs: 10/21/16 07:06 10/20/16 07:02 PT 12.3 SECONDS (9.7-12.2) H 10/19/16 11:37 INR 1.1 10/19/16 11:37 APTT 28 SECONDS (21-34) 10/19/16 11:37 Attending/Attestation - Attestation I have personally seen and examined this patient.: Yes I have fully participated in the care of the patient.: Yes I have reviewed all pertinent clinical information, including history, physical exam and plan: Yes Notes (Text): This is late computer entry for 10/20/16. Patient seen, examined, and case discussed with day-time resident. Patient denies acute complaints except for dysphagia. patient is NPO for modifed video barium swallow-->result revealed tracheoesophageal fistula-->ENT recommended thoracic evaluation; however there there is no thoracic service at [facility] for the next weeks and recommended for transfer-->discussed with patient the findings and the risks if left untreated including aspiration pneumonia; patient declines surgery intervention but will re-eval patient in the morning regarding this decision; discussed with ENT and GI following result- ->ENT to speak with patient again tomorrow and GI to speak with patient; if patient continues to decline surgery intervention; its a possibility will need a peg tube. Urologically-->patient is stable from their aspect, will need an outpatient prostate biopsy and to follow-up with Tiffani Laureano Infectious disease-->had recommended patient can be switched from IV to PO prior to tracheoesophageal fistula finding Urine culture shows no growth and blood cultures remain negative Per pulm, recommended for outpatient PET to monitor pulmonary nodules.
[2016-10-20] MEDS: Magnesium Sulfate 1 gm in D5W 1 GM/100 ML BAG IVPB SCH ×2 (08:55→10:00)
[2016-10-20] MEDS: Saccharomyces Boulardi 250 mg Cap PO SCH ×3 (10:00→17:29)
[2016-10-20] MEDS: POLYETHYLENE GLYCOL 3350 17 GM/Dose PACKET PO ONE ×2 (10:26→11:00)
--- NOTE | 2016-10-20 10:55 | CP.PCM.PN ---
Subjective - Date & Time of Evaluation Date of Evaluation: 10/20/16 Time of Evaluation: 10:53 - Subjective Subjective: CC: Follow up anemia and dysphagia Discussed with Dr Colindres. No evidence of GI bleeding. Swallow eval pending Objective - Vital Signs/Intake and Output Vital Signs (last 24 hours): Temp Pulse Resp BP Pulse Ox 98.5 F 63 20 119/73 98 10/20/16 08:38 10/20/16 08:38 10/20/16 08:38 10/20/16 08:38 10/20/16 08:38 Intake and Output: 10/20/16 10/20/16 06:59 18:59 Intake Total 440 Output Total 800 Balance -360 - Medications Medications: Current Medications Ciprofloxacin (Cipro) 250 mg PO BID [facility] Enalapril Maleate (Vasotec) 10 mg PO Q12 [facility] Last Admin: 10/19/16 23:00 Dose: Not Given Dextrose/Sodium Chloride (Dextrose 5%/0.9% Ns 1000 Ml) 1,000 mls @ 80 mls/hr IV .[id number] [facility] Last Admin: 10/20/16 02:53 Dose: 80 mls/hr Gentamicin Sulfate 160 mg/ (Sodium Chloride) 104 mls @ 100 mls/hr IVPB Q24H [facility] Last Admin: 10/19/16 19:19 Dose: Not Given Insulin Human Regular (Novolin R) 0 unit SC ACHS [facility] PRN Reason: Protocol Last Admin: 10/20/16 07:30 Dose: Not Given Pantoprazole Sodium (Protonix Inj) 40 mg IVP Q12H [facility] Last Admin: 10/20/16 05:11 Dose: 40 mg Saccharomyces Boulardii (Florastor) 250 mg PO BID [facility] Last Admin: 10/19/16 19:19 Dose: 250 mg Tamsulosin HCl (Flomax) 0.4 mg PO DAILY [facility] - Labs Labs: 10/20/16 07:02 10/20/16 07:02 PT 12.3 SECONDS (9.7-12.2) H 10/19/16 11:37 INR 1.1 10/19/16 11:37 APTT 28 SECONDS (21-34) 10/19/16 11:37 - Constitutional Appears: Cachectic, Chronically Ill - Head Exam Head Exam: NORMOCEPHALIC - Eye Exam Eye Exam: absent: Scleral icterus - Respiratory Exam Respiratory Exam: NORMAL BREATHING PATTERN - Cardiovascular Exam Cardiovascular Exam: REGULAR RHYTHM - GI/Abdominal Exam GI & Abdominal Exam: Soft. absent: Tenderness, Mass Assessment and Plan (1) Microcytic hypochromic anemia Assessment & Plan: Recheck stool OB Check retic count Consider hematology consult EGD and Colonoscopy recently done Status: Acute (2) History of colon cancer Assessment & Plan: Stable Status: Acute (3) Dysphagia Assessment & Plan: Swallow eval ENT workup in progress Status: Acute
--- NOTE | 2016-10-20 11:14 | CP.PCM.CON ---
History of Present Illness - History of Present Illness History of Present Illness: palliative consult Requested by Bernadine GONCALVES Reason: Goals of care discussion Patient is a 61 yo male known to me from previous admissions, and recently discharged from this hosp[ital after treated for UTI. Patient sent home with scripts for Levaquin X 10 days. Patient reports being compliant with it. However , patient reports feeling progressive more weak ever since the discharge and had difficulties urinating. Patient reports urinary hesistency and voiding frequently in small amounts. Patient denies fever. chest pain or SOB. The Bladder US confirmed enlarged prostate and minimal urine retention. The urine C&S negative. Cystoscopy performed yesterday, results are pending. Patient also complains of difficulties swallowing solid food . it has been going on since his CVA. Liquids are swallowed easier than the solids. Modified Barium swallow eval pending. PMH: HTN, colon CA 2012, DM, peptic ulcer, TIA/CVA Fam> Hx: mother from unknown cancer, father with seizures Soc. Hx: Lives alone, has a cat and a bird, denies alcohol use, denies elicit drugs use, smokes about 3 cigarettes a day Review of Systems - Constitutional Constitutional: Weakness - EENT Eyes: absent: As Per HPI, Blind Spots, Blurred Vision, Change in Vision, Decreased Night Vision, Diplopia, Discharge, Dry Eye, Exophthalmos, Floaters, Irritation, Itchy Eyes, Loss of Peripheral Vision, Pain, Photophobia, Requires Corrective Lenses, Sees Flashes, Spots in Vision, Tunnel Vision, Other Visual Disturbances, Loss of Vision, Other Nose/Mouth/Throat: Dysphagia - Cardiovascular Cardiovascular: absent: As Per HPI, Acrocyanosis, Chest Pain, Chest Pain at Rest , Chest Pain with Activity, Claudication, Diaphoresis, Dyspnea, Dyspnea on Exertion, Edema, Irregular Heart Rhythm, Pain Radiating to Arm/Neck/Jaw, Leg Edema, Leg Ulcers, Lightheadedness, Orthopnea, Palpitations, Paroxysmal Nocturnal Dyspnea, Pedal Edema, Radiating Pain, Rapid Heart Rate, Slow Heart Rate, Syncope, Other - Respiratory Respiratory: absent: As Per HPI, Cough, Dyspnea, Hemoptysis, Dyspnea on Exertion , Wheezing, Snoring, Stridor, Pain on Inspiration, Chest Congestion, Excessive Mucous Production, Change in Mucous Color, Pain with Coughing, Other - Gastrointestinal Gastrointestinal: Dysphagia - Genitourinary Genitourinary: Urinary Frequency, Urinary Hesitance - Musculoskeletal Musculoskeletal: Muscle Weakness - Integumentary Integumentary: Alopecia - Neurological Neurological: Weakness - Psychiatric Psychiatric: Anxiety - Endocrine Endocrine: absent: As Per HPI, Change in Body Appearance, Change in Libido, Cold Intolorance, Deepening of Voice, Excessive Sweating, Fatigue, Flushing, Heat Intolorance, Increase in Ring/Shoe/Hat Size, Palpitations, Polydipsia, Polyphagia, Polyuria, Other - Hematologic/Lymphatic Hematologic: absent: As Per HPI, Easy Bleeding, Easy Bruising, Lymphadenopathy, Other Past Patient History - Past Medical History & Family History Past Medical History?: Yes - Past Social History Smoking Status: Heavy Smoker > 10 Cigarettes Daily - CARDIAC Hx Hypertension: Yes - PULMONARY Hx Respiratory Disorders: No - NEUROLOGICAL HX Cerebrovascular Accident: Yes - HEENT Hx HEENT Problems: No - RENAL Hx Chronic Kidney Disease: No - ENDOCRINE/METABOLIC Hx Diabetes Mellitus Type 2: Yes - HEMATOLOGICAL/ONCOLOGICAL Hx Blood Disorders: Yes Hx Cancer: Yes (COLON CA) - INTEGUMENTARY Hx Dermatological Problems: Yes Other/Comment: dermatomyositis - MUSCULOSKELETAL/RHEUMATOLOGICAL Hx Musculoskeletal Disorders: Yes - GASTROINTESTINAL Hx Gastrointestinal Disorders: Yes Hx Bowel Surgery: Yes Other/Comment: COLON CANCER. GI Bleed= feb 2016 - GENITOURINARY/GYNECOLOGICAL Hx Genitourinary Disorders: No - PSYCHIATRIC Hx Substance Use: No - SURGICAL HISTORY Hx Surgeries: Yes Other/Comment: colon cancer surgery - ANESTHESIA Hx Anesthesia: Yes Hx Anesthesia Reactions: No Meds Allergies/Adverse Reactions: Allergies Allergy/AdvReac Type Severity Reaction Status Date / Time No Known Allergies Allergy Verified 10/17/16 13:46 - Medications Medications: Current Medications Ciprofloxacin (Cipro) 250 mg PO BID [facility] Enalapril Maleate (Vasotec) 10 mg PO Q12 [facility] Last Admin: 10/19/16 23:00 Dose: Not Given Dextrose/Sodium Chloride (Dextrose 5%/0.9% Ns 1000 Ml) 1,000 mls @ 80 mls/hr IV .[id number] [facility] Last Admin: 10/20/16 02:53 Dose: 80 mls/hr Gentamicin Sulfate 160 mg/ (Sodium Chloride) 104 mls @ 100 mls/hr IVPB Q24H [facility] Last Admin: 10/19/16 19:19 Dose: Not Given Insulin Human Regular (Novolin R) 0 unit SC ACHS [facility] PRN Reason: Protocol Last Admin: 10/20/16 07:30 Dose: Not Given Pantoprazole Sodium (Protonix Inj) 40 mg IVP Q12H [facility] Last Admin: 10/20/16 05:11 Dose: 40 mg Saccharomyces Boulardii (Florastor) 250 mg PO BID [facility] Last Admin: 10/19/16 19:19 Dose: 250 mg Tamsulosin HCl (Flomax) 0.4 mg PO DAILY [facility] Physical Exam - Constitutional Appears: Chronically Ill - Head Exam Head Exam: ATRAUMATIC, NORMAL INSPECTION, NORMOCEPHALIC - Eye Exam Eye Exam: EOMI, Normal appearance, PERRL Pupil Exam: NORMAL ACCOMODATION, PERRL - ENT Exam ENT Exam: Mucous Membranes Moist, Normal Exam - Neck Exam Neck exam: Positive for: Normal Inspection - Respiratory Exam Respiratory Exam: Clear to Auscultation Bilateral, NORMAL BREATHING PATTERN - Cardiovascular Exam Cardiovascular Exam: REGULAR RHYTHM - GI/Abdominal Exam GI & Abdominal Exam: Normal Bowel Sounds, Soft - Rectal Exam Rectal Exam: Deferred - Extremities Exam Extremities exam: Positive for: normal inspection - Back Exam Back exam: NORMAL INSPECTION - Neurological Exam Neurological exam: Alert, Oriented x3 - Psychiatric Exam Psychiatric exam: Anxious, Normal Mood - Skin Skin Exam: Pallor, Warm Results - Vital Signs Recent Vital Signs: Last Vital Signs Temp 98.5 F 10/20/16 08:38 Pulse 63 10/20/16 08:38 Resp 20 10/20/16 08:38 BP 119/73 10/20/16 08:38 Pulse Ox 98 10/20/16 08:38 - Labs Result Diagrams: 10/20/16 07:02 10/20/16 07:02 Labs: Laboratory Results - last 24 hr 10/19/16 10/19/16 10/19/16 07:08 11:01 11:37 WBC RBC Hgb Hct MCV MCH MCHC RDW Plt Count MPV Neut % (Auto) Lymph % (Auto) [place] % (Auto) Eos % (Auto) Baso % (Auto) Neut # Lymph # [place] # Eos # Baso # PT 12.3 H INR 1.1 APTT 28 Sodium Potassium Chloride Carbon Dioxide Anion Gap BUN Creatinine Est GFR ( Amer) Est GFR (Non-Af Amer) POC Glucose (mg/dL) 103 Random Glucose Calcium Phosphorus Magnesium Total Bilirubin AST ALT Alkaline Phosphatase Total Protein Albumin Globulin Albumin/Globulin Ratio Anti-Staphylolysin O Positive H Anti-Streptolysin Titr =>200 iu/ml 10/19/16 10/19/16 10/20/16 18:10 21:17 06:44 WBC RBC Hgb Hct MCV MCH MCHC RDW Plt Count MPV Neut % (Auto) Lymph % (Auto) [place] % (Auto) Eos % (Auto) Baso % (Auto) Neut # Lymph # [place] # Eos # Baso # PT INR APTT Sodium Potassium Chloride Carbon Dioxide Anion Gap BUN Creatinine Est GFR ( Amer) Est GFR (Non-Af Amer) POC Glucose (mg/dL) 125 H 207 H 125 H Random Glucose Calcium Phosphorus Magnesium Total Bilirubin AST ALT Alkaline Phosphatase Total Protein Albumin Globulin Albumin/Globulin Ratio Anti-Staphylolysin O Anti-Streptolysin Titr 10/20/16 10/20/16 07:02 07:02 WBC 6.3 RBC 3.31 L Hgb 8.8 L Hct 25.8 L MCV 78.1 L MCH 26.6 L MCHC 34.0 RDW 17.1 H Plt Count 205 MPV 7.7 Neut % (Auto) 68.7 Lymph % (Auto) 16.6 L [place] % (Auto) 9.1 Eos % (Auto) 4.7 H Baso % (Auto) 0.9 Neut # 4.3 Lymph # 1.0 [place] # 0.6 Eos # 0.3 Baso # 0.1 PT INR APTT Sodium 139 Potassium 4.2 Chloride 101 Carbon Dioxide 25 Anion Gap 17 BUN 16 Creatinine 1.2 Est GFR ( Amer) > 60 Est GFR (Non-Af Amer) > 60 POC Glucose (mg/dL) Random Glucose 112 H Calcium 8.3 L Phosphorus 3.8 Magnesium 1.4 L Total Bilirubin 0.5 AST 42 ALT 53 Alkaline Phosphatase 39 Total Protein 6.6 Albumin 3.3 L Globulin 3.3 Albumin/Globulin Ratio 1.0 Anti-Staphylolysin O Anti-Streptolysin Titr Assessment & Plan - Assessment and Plan (Free Text) Assessment: palliative consult Full Code, no Advance directive on chart, PPS 40% I reviewed medical records, all diagnostic studies, examined and interviewed patient in the bed. Patient is alert, oriented X 3 with affect that is flat. Skin is pale. Patient reports no acute symptoms. Patient was concerned about the blood tinged urine, what I explained as a post cystoscopy residual. Patient reports difficulties swallowing solid food ever since the CVA 2012. He thinks he has lost eight due to inadequate nutrition, but is not sure how much. patient aware of pending swallow evaluation. BP 119/73, HR63, O2Sat 98%, afebrile. Patient lives alone and has no close family members. Goals of care discussed. Patient wishes to get well and go home to his cat and bird. Patient aware of his decreased abilities to participate in ADLs due to generalized weakness. Code status discussed. Patient wishes to be treated using all reasonable measures. If his health deteriorates to the level that his life could be sustained only by the use of mechanical ventilation and artificial nutrition, patient would prefer comfort measures only. Patient does not want his life prolonged by life support. POLST discussed. All options read by me to the patient, than he read it alone as well. Patient chose DNR/DNI status. Impression * This is chronically ill man with worsening general weakness * Unwanted weight loss * Difficulties swallowing solid food * Separation anxiety ( misses his pets) * urinary hesitancy * lack of family support, has no close relatives, lives alone Suggestion * Symptoms treatment * Food texture based on the Barium swallow eval results to meet patient's nutritional needs * Discharge home when stable * POLST on chart ( Doctor Bernadine made aware of) * DNR/DNI Thank you for consulting Palliative care
[2016-10-20] MEDS ORDERED: Barium Sulfate for Susp 98% w/w 340g Bottle ONE (11:27)
--- NOTE | 2016-10-20 13:44 | RAD ---
PROCEDURE: Modified barium swallow study. HISTORY: dysphagia to thin, liquids hx of parotid mass COMPARISON: None available. TECHNIQUE: Under fluoroscopic guidance, barium meals of various consistency were administered to the patient by the speech pathologist. FINDINGS: A normal oral motor phase of identified in this patient on ingestion of pudding and thickened nectar consistency barium food mixtures. However, during each swallow, aspiration occurred through a tiny fistula delete DVT left side of the esophagus extending directed anterior into the trachea. The study was not carried out beyond these 2 consistencies. No aspiration occurred around the epiglottis and through the vocal cords. 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 No aspiration through the vocal cords occurred however limited sepsis were administered to this patient. Please see separate speech pathologist report for additional details and recommendations. .
--- NOTE | 2016-10-20 13:53 | CP.PCM.PN ---
Subjective - Date & Time of Evaluation Date of Evaluation: 10/20/16 Time of Evaluation: 08:00 - Subjective Subjective: improving afeb Objective - Vital Signs/Intake and Output Vital Signs (last 24 hours): Temp Pulse Resp BP Pulse Ox 98.5 F 63 20 119/73 98 10/20/16 08:38 10/20/16 08:38 10/20/16 08:38 10/20/16 08:38 10/20/16 08:38 Intake and Output: 10/20/16 10/20/16 06:59 18:59 Intake Total 440 Output Total 800 Balance -360 - Medications Medications: Current Medications Enalapril Maleate (Vasotec) 10 mg PO Q12 [facility] Last Admin: 10/19/16 23:00 Dose: Not Given Dextrose/Sodium Chloride (Dextrose 5%/0.9% Ns 1000 Ml) 1,000 mls @ 80 mls/hr IV .[id number] [facility] Last Admin: 10/20/16 02:53 Dose: 80 mls/hr Gentamicin Sulfate 160 mg/ (Sodium Chloride) 104 mls @ 100 mls/hr IVPB Q24H [facility] Last Admin: 10/19/16 19:19 Dose: Not Given Ciprofloxacin (Cipro 400mg/200ml Dsw) 400 mg in 200 mls @ 133 mls/hr IVPB Q12H [facility] Insulin Human Regular (Novolin R) 0 unit SC ACHS [facility] PRN Reason: Protocol Last Admin: 10/20/16 07:30 Dose: Not Given Pantoprazole Sodium (Protonix Inj) 40 mg IVP Q12H [facility] Last Admin: 10/20/16 05:11 Dose: 40 mg Saccharomyces Boulardii (Florastor) 250 mg PO BID [facility] Last Admin: 10/19/16 19:19 Dose: 250 mg Tamsulosin HCl (Flomax) 0.4 mg PO DAILY [facility] - Labs Labs: 10/20/16 07:02 10/20/16 07:02 PT 12.3 SECONDS (9.7-12.2) H 10/19/16 11:37 INR 1.1 10/19/16 11:37 APTT 28 SECONDS (21-34) 10/19/16 11:37 - Constitutional Appears: Non-toxic, Cachectic, Chronically Ill - Head Exam Head Exam: NORMOCEPHALIC - Eye Exam Eye Exam: PERRL - ENT Exam ENT Exam: Mucous Membranes Dry - Neck Exam Neck Exam: absent: Lymphadenopathy - Respiratory Exam Respiratory Exam: Decreased Breath Sounds - Cardiovascular Exam Cardiovascular Exam: REGULAR RHYTHM - GI/Abdominal Exam GI & Abdominal Exam: Distended, Soft Assessment and Plan - Assessment and Plan (Free Text) Plan: cont cipro po follow up with
--- NOTE | 2016-10-20 17:04 | PCM.URO ---
Urology Progress Note - General General: Tolerating Diet - Subjective Abdominal Pain: No Flank Pain: No Nausea: No Voiding Well: Yes ([place]) Hematuria: No Stone Passed: No Dsypnea: No Chest Pain: No Fever & Chills: No - Objective Lab Studies: Reviewed (cultures negative bun=16, creat=1.2 wbc=6,300 hct=25.8 PSA= 1.08) Lab Results Last 24 Hours: Laboratory Results - last 24 hr 10/19/16 10/19/16 10/19/16 07:08 07:08 18:10 WBC RBC Hgb Hct MCV MCH MCHC RDW Plt Count MPV Neut % (Auto) Lymph % (Auto) [place] % (Auto) Eos % (Auto) Baso % (Auto) Neut # Lymph # [place] # Eos # Baso # Sodium Potassium Chloride Carbon Dioxide Anion Gap BUN Creatinine Est GFR ( Amer) Est GFR (Non-Af Amer) POC Glucose (mg/dL) 125 H Random Glucose Calcium Phosphorus Magnesium Total Bilirubin AST ALT Alkaline Phosphatase Total Protein Albumin Globulin Albumin/Globulin Ratio Cycl Citrul Peptide IgG <16 PEREZ 6 Profile Negative Anti-Cardiolipin IgG Ab <14 Anti-Cardiolipin IgM Ab <12 Anti-Streptolysin Titr =>200 iu/ml 10/19/16 10/20/16 10/20/16 21:17 06:44 07:02 WBC 6.3 RBC 3.31 L Hgb 8.8 L Hct 25.8 L MCV 78.1 L MCH 26.6 L MCHC 34.0 RDW 17.1 H Plt Count 205 MPV 7.7 Neut % (Auto) 68.7 Lymph % (Auto) 16.6 L [place] % (Auto) 9.1 Eos % (Auto) 4.7 H Baso % (Auto) 0.9 Neut # 4.3 Lymph # 1.0 [place] # 0.6 Eos # 0.3 Baso # 0.1 Sodium Potassium Chloride Carbon Dioxide Anion Gap BUN Creatinine Est GFR ( Amer) Est GFR (Non-Af Amer) POC Glucose (mg/dL) 207 H 125 H Random Glucose Calcium Phosphorus Magnesium Total Bilirubin AST ALT Alkaline Phosphatase Total Protein Albumin Globulin Albumin/Globulin Ratio Cycl Citrul Peptide IgG PEREZ 6 Profile Anti-Cardiolipin IgG Ab Anti-Cardiolipin IgM Ab Anti-Streptolysin Titr 10/20/16 10/20/16 07:02 16:09 WBC RBC Hgb Hct MCV MCH MCHC RDW Plt Count MPV Neut % (Auto) Lymph % (Auto) [place] % (Auto) Eos % (Auto) Baso % (Auto) Neut # Lymph # [place] # Eos # Baso # Sodium 139 Potassium 4.2 Chloride 101 Carbon Dioxide 25 Anion Gap 17 BUN 16 Creatinine 1.2 Est GFR ( Amer) > 60 Est GFR (Non-Af Amer) > 60 POC Glucose (mg/dL) 375 H Random Glucose 112 H Calcium 8.3 L Phosphorus 3.8 Magnesium 1.4 L Total Bilirubin 0.5 AST 42 ALT 53 Alkaline Phosphatase 39 Total Protein 6.6 Albumin 3.3 L Globulin 3.3 Albumin/Globulin Ratio 1.0 Cycl Citrul Peptide IgG PEREZ 6 Profile Anti-Cardiolipin IgG Ab Anti-Cardiolipin IgM Ab Anti-Streptolysin Titr Intake & Output: Intake & Output 10/19/16 10/20/16 10/20/16 18:59 06:59 18:59 Intake Total 860 440 Output Total 800 200 Balance 860 -360 -200 Intake: IV 200 Intake, IV Amount 660 440 Left Forearm 660 440 Output: Urine 800 200 Urine, Voided 800 200 Other: # Voids Urine, Voided 1 1 Vital Signs: Vital Signs - 24 hr 10/19/16 10/19/16 10/19/16 17:04 17:15 17:30 Temperature Pulse Rate 64 54 L 56 L Respiratory 10 L 10 L Rate Blood Pressure 151/70 H 151/79 H O2 Sat by Pulse 98 98 Oximetry 10/19/16 10/19/16 10/19/16 17:45 18:00 18:15 Temperature 97.7 F Pulse Rate 58 L 58 L 59 L Respiratory 10 L 11 L 10 L Rate Blood Pressure 155/79 H 144/79 150/77 O2 Sat by Pulse 98 98 98 Oximetry 10/19/16 10/19/16 10/19/16 19:20 23:30 23:38 Temperature 97.1 F L 98.4 F Pulse Rate 65 67 67 Respiratory 18 20 Rate Blood Pressure 124/72 117/64 O2 Sat by Pulse 100 98 Oximetry 10/20/16 10/20/16 10/20/16 04:04 04:10 08:38 Temperature 98.3 F 98.5 F Pulse Rate 53 L 58 L 63 Respiratory 20 20 Rate Blood Pressure 147/80 119/73 O2 Sat by Pulse 98 98 Oximetry 10/20/16 15:51 Temperature 97.5 F L Pulse Rate 58 L Respiratory 18 Rate Blood Pressure 134/74 O2 Sat by Pulse 98 Oximetry - Male Phallus: Normal Scrotum: Normal Testes: Normal: Bilateral - Plan Additional Information: Imp: stable urologically. improved clinically. prev uti. bph. stable p cysto. anemia - Date & Time of Note Date: 10/20/16 Time: 13:20
--- NOTE | 2016-10-20 17:04 | CON ---
DATE: 10/20/2016 HISTORY OF PRESENT ILLNESS: This is a 61-year-old male known to have right parotid mass on CAT scan. The patient did not complain of mass in that area and did not know he had one. PAST MEDICAL HISTORY: As noted in the chart by me. MEDICATIONS: As noted in the chart by me. PHYSICAL EXAMINATION: HEAD: Atraumatic, normocephalic. FACE: Good facial movements bilaterally. CONSTITUTIONAL: Well fed and well nourished. COMMUNICATION: Communicates appropriately. EXTERNAL NOSE: No masses. No lesions. No erythema. No edema. INTERNAL NOSE: Deviated septum. No masses. No lesions. No erythema. No edema. ORAL CAVITY AND OROPHARYNX: No masses. No lesions. No erythema. No edema. LIPS AND GUMS: No masses. No lesions. No erythema. No edema. NECK: Supple. THYROID: No thyromegaly, no goiter. LYMPH NODES No lymphadenopathy of the neck. ASSESSMENT: Parotid mass on the right. deviated septum PLAN: Recommend interventionalist to do an ultrasound-guided FNA of the parotid mass. Diego Junior MD MTDD
[2016-10-20] MEDS: Gentamicin 160 MG in Sodium Chloride 0.9% 100 ML IVPB SCH (17:31)
[2016-10-21] MEDS: Ciprofloxacin 400mg/200ml D5W 400 MG/200 ML BAG IVPB SCH ×2 (00:30→13:26)
[2016-10-21] MEDS: Dextrose 5%/0.9% NS 1,000 ML IV SCH ×2 (04:16→12:30)
[2016-10-21 07:13] LABS: BASO # 0.1 K/uL (0.0-0.2); BASO % 0.9 % (0.0-2.0); EOS # 0.4 K/uL (0.0-0.7); EOS % 5.7 % (0.0-4.0); HEMOGLOBIN 8.7 g/dL (12.0-18.0); LYMPH # 1.2 K/uL (1.0-4.3); LYMPH % 18.7 % (20.0-40.0); MEAN CELL VOLUME 78.3 fL (80.0-94.0); MEAN CORPUSCULAR HEMOGLOBIN 26.6 pg (27.0-31.0); MEAN CORPUSCULAR HGB CONC 33.9 g/dL (33.0-37.0); MEAN PLATELET VOLUME 7.5 fL (7.2-11.7); MONO # 0.5 K/uL (0.0-0.8); MONO % 8.4 % (0.0-10.0); NEUT # 4.2 K/uL (1.8-7.0); NEUT % 66.3 % (50.0-75.0); RBC 3.26 Mil/uL (4.40-5.90); RED CELL DISTRIBUTION WIDTH 16.4 % (11.5-14.5); WHITE BLOOD COUNT 6.3 K/uL (4.8-10.8)
[2016-10-21 07:29] LABS: ALB/GLOB RATIO 1.1 (1.0-2.1); ALBUMIN 3.3 g/dL (3.5-5.0); ALT/SGPT 47 U/L (21-72); AST/SGOT 34 U/L (17-59); BLOOD UREA NITROGEN 10 mg/dL (9-20); CALCIUM 8.1 mg/dl (8.6-10.4); GFR AFRICAN-AMERICAN > 60; GFR NON-AFRICAN AMERICAN > 60; MAGNESIUM 1.7 mg/dL (1.6-2.3)
[2016-10-21] MEDS: (Novolin R) Insulin Human Regular 100 units/ml vial SC SCH ×4 (07:58→21:24)
--- NOTE | 2016-10-21 09:51 | PCM.URO ---
Urology Progress Note - Objective Lab Results Last 24 Hours: Laboratory Results - last 24 hr 10/19/16 10/19/16 10/20/16 07:08 07:08 16:09 WBC RBC Hgb Hct MCV MCH MCHC RDW Plt Count MPV Neut % (Auto) Lymph % (Auto) [place] % (Auto) Eos % (Auto) Baso % (Auto) Neut # Lymph # [place] # Eos # Baso # Sodium Potassium Chloride Carbon Dioxide Anion Gap BUN Creatinine Est GFR ( Amer) Est GFR (Non-Af Amer) POC Glucose (mg/dL) 375 H Random Glucose Calcium Phosphorus Magnesium Total Bilirubin AST ALT Alkaline Phosphatase Total Protein Albumin Globulin Albumin/Globulin Ratio Cycl Citrul Peptide IgG <16 PEREZ 6 Profile Negative Anti-Cardiolipin IgG Ab <14 Anti-Cardiolipin IgM Ab <12 Anti-Streptolysin Titr =>200 iu/ml 10/20/16 10/21/16 10/21/16 20:56 06:32 07:06 WBC 6.3 RBC 3.26 L Hgb 8.7 L Hct 25.5 L MCV 78.3 L MCH 26.6 L MCHC 33.9 RDW 16.4 H Plt Count 186 MPV 7.5 Neut % (Auto) 66.3 Lymph % (Auto) 18.7 L [place] % (Auto) 8.4 Eos % (Auto) 5.7 H Baso % (Auto) 0.9 Neut # 4.2 Lymph # 1.2 [place] # 0.5 Eos # 0.4 Baso # 0.1 Sodium Potassium Chloride Carbon Dioxide Anion Gap BUN Creatinine Est GFR ( Amer) Est GFR (Non-Af Amer) POC Glucose (mg/dL) 144 H 99 Random Glucose Calcium Phosphorus Magnesium Total Bilirubin AST ALT Alkaline Phosphatase Total Protein Albumin Globulin Albumin/Globulin Ratio Cycl Citrul Peptide IgG PEREZ 6 Profile Anti-Cardiolipin IgG Ab Anti-Cardiolipin IgM Ab Anti-Streptolysin Titr 10/21/16 07:06 WBC RBC Hgb Hct MCV MCH MCHC RDW Plt Count MPV Neut % (Auto) Lymph % (Auto) [place] % (Auto) Eos % (Auto) Baso % (Auto) Neut # Lymph # [place] # Eos # Baso # Sodium 141 Potassium 3.8 Chloride 103 Carbon Dioxide 26 Anion Gap 16 BUN 10 Creatinine 1.1 Est GFR ( Amer) > 60 Est GFR (Non-Af Amer) > 60 POC Glucose (mg/dL) Random Glucose 101 Calcium 8.1 L Phosphorus 3.1 Magnesium 1.7 Total Bilirubin 0.3 AST 34 ALT 47 Alkaline Phosphatase 39 Total Protein 6.4 Albumin 3.3 L Globulin 3.1 Albumin/Globulin Ratio 1.1 Cycl Citrul Peptide IgG PEREZ 6 Profile Anti-Cardiolipin IgG Ab Anti-Cardiolipin IgM Ab Anti-Streptolysin Titr Intake & Output: Intake & Output 10/20/16 10/21/16 10/21/16 18:59 06:59 18:59 Intake Total 480 Output Total 500 1050 Balance -500 -570 Intake: Intake, IV Amount 480 Left Forearm 480 Output: Urine 500 1050 Urine, Voided 500 1050 Other: # Voids Urine, Voided 1 Vital Signs: Vital Signs - 24 hr 10/20/16 10/20/16 10/21/16 15:51 23:35 00:00 Temperature 97.5 F L 97.4 F L Pulse Rate 58 L 59 L 56 L Respiratory 18 20 Rate Blood Pressure 134/74 O2 Sat by Pulse 98 99 Oximetry 10/21/16 08:26 Temperature 98.0 F Pulse Rate 57 L Respiratory 20 Rate Blood Pressure 146/76 O2 Sat by Pulse 99 Oximetry
[2016-10-21] MEDS: Saccharomyces Boulardi 250 mg Cap PO SCH (10:12)
--- NOTE | 2016-10-21 11:53 | CP.PCM.PN ---
Subjective - Date & Time of Evaluation Date of Evaluation: 10/21/16 Time of Evaluation: 10:00 - Subjective Subjective: F/U dysphagia Reports same dysphagia Denies RB, melena, SOb, GELLER, hemoptysis, hematuria, myalgia Objective - Vital Signs/Intake and Output Vital Signs (last 24 hours): Temp Pulse Resp BP Pulse Ox 98.0 F 57 L 20 146/76 99 10/21/16 08:26 10/21/16 08:26 10/21/16 08:26 10/21/16 08:26 10/21/16 08:26 Intake and Output: 10/21/16 10/21/16 06:59 18:59 Intake Total 480 Output Total 1050 Balance -570 - Medications Medications: Current Medications Enalapril Maleate (Vasotec) 10 mg PO Q12 [facility] Last Admin: 10/20/16 21:36 Dose: Not Given Dextrose/Sodium Chloride (Dextrose 5%/0.9% Ns 1000 Ml) 1,000 mls @ 80 mls/hr IV .[id number] [facility] Last Admin: 10/21/16 04:16 Dose: 80 mls/hr Gentamicin Sulfate 160 mg/ (Sodium Chloride) 104 mls @ 100 mls/hr IVPB Q24H [facility] Last Admin: 10/20/16 17:31 Dose: 100 mls/hr Ciprofloxacin (Cipro 400mg/200ml Dsw) 400 mg in 200 mls @ 133 mls/hr IVPB Q12H [facility] Last Admin: 10/21/16 00:30 Dose: 133 mls/hr Insulin Human Regular (Novolin R) 0 unit SC ACHS [facility] PRN Reason: Protocol Last Admin: 10/21/16 07:58 Dose: Not Given Pantoprazole Sodium (Protonix Inj) 40 mg IVP Q12H [facility] Last Admin: 10/21/16 04:16 Dose: 40 mg Saccharomyces Boulardii (Florastor) 250 mg PO BID [facility] Last Admin: 10/20/16 17:29 Dose: 250 mg Tamsulosin HCl (Flomax) 0.4 mg PO DAILY [facility] Last Admin: 10/20/16 11:00 Dose: Not Given - Labs Labs: 10/21/16 07:06 10/21/16 07:06 PT 12.3 SECONDS (9.7-12.2) H 10/19/16 11:37 INR 1.1 10/19/16 11:37 APTT 28 SECONDS (21-34) 10/19/16 11:37 - Neck Exam Neck Exam: absent: Tenderness - Respiratory Exam Respiratory Exam: Clear to Ausculation Bilateral - Cardiovascular Exam Cardiovascular Exam: RRR - GI/Abdominal Exam GI & Abdominal Exam: Soft, Normal Bowel Sounds. absent: Tenderness - Extremities Exam Extremities Exam: absent: Calf Tenderness - Neurological Exam Neurological Exam: Alert, Oriented x3 Assessment and Plan (1) Tracheo-esophageal fistula Assessment & Plan: Discussed with pt today by me, and by DR Layne last night. Discussed tertiary refeeral for treatment. Discussed risk of infection, sepsis, and Status: Acute (2) Dysphagia Assessment & Plan: CVA. Consider due to fistula. Pt had EGD few months ago. Status: Acute (3) History of hypertension Status: Acute (4) Diabetes mellitus Status: Acute (5) History of colon cancer Status: Acute
--- NOTE | 2016-10-21 12:48 | CP.PCM.PN ---
Subjective - Date & Time of Evaluation Date of Evaluation: 10/21/16 Time of Evaluation: 12:45 - Subjective Subjective: Patient should follow up with Dr. Redding in [facility] to adress the parotid mass. I recommend a biopsy here and follow up with dr. redding. I gave patient dr. redding's number and informed him that he needs to follow up with her as an outpatient. I will also contact Dr. Redding and ask her to see patient within 2 weeks Objective - Vital Signs/Intake and Output Vital Signs (last 24 hours): Temp Pulse Resp BP Pulse Ox 98.0 F 57 L 20 146/76 99 10/21/16 08:26 10/21/16 08:26 10/21/16 08:26 10/21/16 08:26 10/21/16 08:26 Intake and Output: 10/21/16 10/21/16 06:59 18:59 Intake Total 480 Output Total 1050 Balance -570 - Medications Medications: Current Medications Enalapril Maleate (Vasotec) 10 mg PO Q12 [facility] Last Admin: 10/20/16 21:36 Dose: Not Given Dextrose/Sodium Chloride (Dextrose 5%/0.9% Ns 1000 Ml) 1,000 mls @ 80 mls/hr IV .[id number] [facility] Last Admin: 10/21/16 04:16 Dose: 80 mls/hr Gentamicin Sulfate 160 mg/ (Sodium Chloride) 104 mls @ 100 mls/hr IVPB Q24H [facility] Last Admin: 10/20/16 17:31 Dose: 100 mls/hr Ciprofloxacin (Cipro 400mg/200ml Dsw) 400 mg in 200 mls @ 133 mls/hr IVPB Q12H [facility] Last Admin: 10/21/16 00:30 Dose: 133 mls/hr Insulin Human Regular (Novolin R) 0 unit SC ACHS [facility] PRN Reason: Protocol Last Admin: 10/21/16 11:50 Dose: Not Given Pantoprazole Sodium (Protonix Inj) 40 mg IVP Q12H [facility] Last Admin: 10/21/16 04:16 Dose: 40 mg Saccharomyces Boulardii (Florastor) 250 mg PO BID [facility] Last Admin: 10/20/16 17:29 Dose: 250 mg Tamsulosin HCl (Flomax) 0.4 mg PO DAILY [facility] Last Admin: 10/20/16 11:00 Dose: Not Given - Labs Labs: 10/21/16 07:06 10/21/16 07:06 PT 12.3 SECONDS (9.7-12.2) H 10/19/16 11:37 INR 1.1 10/19/16 11:37 APTT 28 SECONDS (21-34) 10/19/16 11:37
--- NOTE | 2016-10-21 22:37 | CP.PCM.PN ---
<Justen Ibarra - Last Filed: 10/21/16 22:40> Subjective - Date & Time of Evaluation Date of Evaluation: 10/21/16 Time of Evaluation: 22:34 - Subjective Subjective: PGY-[address] Colindres HPI: Patient was seen and examined at bedside. He is doing well with no complaints at this time. Had a discussion about TEF and wether he would consider CT surgery. Currently patient does not want any surgical intervention. We also talked about the possibility of having a peg tube placed for feeding due to his increased risk for aspiration which he also stated he would not want to have done. He is agreeable to having a parotid bx today as well as a PET scan outpatient to look for the etiology of the TEF. Objective - Vital Signs/Intake and Output Vital Signs (last 24 hours): Temp Pulse Resp BP Pulse Ox 98 F 60 18 145/66 100 10/21/16 16:00 10/21/16 16:30 10/21/16 16:00 10/21/16 16:00 10/21/16 16:00 Intake and Output: 10/21/16 10/22/16 18:59 06:59 Intake Total 720 640 Output Total 950 Balance -230 640 - Medications Medications: Current Medications Enalapril Maleate (Vasotec) 10 mg PO Q12 [facility] Last Admin: 10/21/16 21:24 Dose: Not Given Dextrose/Sodium Chloride (Dextrose 5%/0.9% Ns 1000 Ml) 1,000 mls @ 80 mls/hr IV .[id number] [facility] Last Admin: 10/21/16 12:30 Dose: Not Given Ciprofloxacin (Cipro 400mg/200ml Dsw) 400 mg in 200 mls @ 133 mls/hr IVPB Q12H [facility] Last Admin: 10/21/16 13:26 Dose: 133 mls/hr Insulin Human Regular (Novolin R) 0 unit SC ACHS [facility] PRN Reason: Protocol Last Admin: 10/21/16 21:24 Dose: Not Given Pantoprazole Sodium (Protonix Inj) 40 mg IVP Q12H [facility] Last Admin: 10/21/16 18:20 Dose: 40 mg Tamsulosin HCl (Flomax) 0.4 mg PO DAILY [facility] Last Admin: 10/21/16 10:12 Dose: 0.4 mg - Labs Labs: 10/21/16 07:06 10/21/16 07:06 PT 12.3 SECONDS (9.7-12.2) H 10/19/16 11:37 INR 1.1 10/19/16 11:37 APTT 28 SECONDS (21-34) 10/19/16 11:37 - Constitutional Appears: Well, Non-toxic, Cachectic - Head Exam Head Exam: ATRAUMATIC, NORMAL INSPECTION - Eye Exam Eye Exam: EOMI. absent: Conjunctival injection, Nystagmus, Periorbital swelling , Periorbital tenderness, Scleral icterus Pupil Exam: NORMAL ACCOMODATION. absent: Fixed, Irregular, Miosis, Mydriatic - ENT Exam ENT Exam: Mucous Membranes Moist. absent: Mucous Membranes Dry - Respiratory Exam Respiratory Exam: Clear to Ausculation Bilateral, NORMAL BREATHING PATTERN. absent: Accessory Muscle Use, Chest Wall Tenderness, Decreased Breath Sounds, Rhonchi, Wheezes, Respiratory Distress, Stridor - Cardiovascular Exam Cardiovascular Exam: REGULAR RHYTHM, RRR. absent: Bradycardia, Tachycardia, Clicks, Diastolic murmur, Gallop, Irregular Rhythm, JVD, Rubs, Murmur - GI/Abdominal Exam GI & Abdominal Exam: Soft, Normal Bowel Sounds. absent: Bruit, Distended, Firm , Guarding, Rigid, Tenderness, Diminished Bowel Sounds, Hernia, Hyperactive Bowel Sounds, Hypoactive Bowel Sounds, Mass, Organomegaly, Pulsatile Mass, Rebound - Extremities Exam Extremities Exam: absent: Calf Tenderness, Joint Swelling, Pedal Edema, Tenderness - Psychiatric Exam Psychiatric exam: absent: Depressed Assessment and Plan - Assessment and Plan (Free Text) Assessment: Sepsis ID consult, Dr. Mcnair Possibly secondary UTI and Prostatitis On admission: Afebrile WBC: WNL Neutrophils: 80.9 Meet SIRS/ Sepsis Criteria: * RR: 22 * HR: 121 * Lactate: 3.7, 3.1 During Hospital Course: Afebrile WBC: WNL Neutrophils: WNL, no bandemia Labs: UA: Negative Urine culture and blood cultures- negative Lactate - 3.7, 3.1, 4.0 ABG - WNL, lactate = 1.7 Medical Management: Currently on D5 80cc/hr due to being held NPO for barium swallow Ciprofloxacin 400mg IV Q12H (started 10/18/16)--> switched to Cipro 250mg PO BID Imaging: Chest X-ray: No active disease. COPD Status: Acute Prostatitis Assessment and Plan: Urology Consult, Dr. Laureano---> Bladder US ordered Bladder US (10/18/16): Prostate enlarged: 5.2 x 2.7 x 4.4cm, volume 32.9. Recommend correlation with PSA. S/P Cystoscopy: Recommendation for prostate biopsy as outpatient. As per Dr. Laureano patient is safe for discharge from urological standpoint. ID consult, Dr. Mcnair PSA level (09/27/16) : 5.2 Repeat PSA --> 1.0 Started on Flomax 0.4mg PO daily Medical Management: * Ciprofloxacin 400mg IV Q12H (started 10/18/16)--> switched to Cipro 250mg PO BID Imaging: CT abdomen and Pelvis (09/25/16): * Thick-walled urinary bladder which may represent an underlying cystitis. * Prominent and enlarged prostate gland measuring up to 6.0 x 4.3 centimeters with thickened nodular calcification within the midportion of the prostate measuring 1.5 centimeters Status: Acute Hx of Parotid Mass Assessment and Plan: MRI of orbits, face and neck: 10 x 8 x 15 mm well-circumscribed smoothly marginated nodule in the superficial right parotid gland is nonspecific. The differential considerations include pleomorphic adenoma, Warthin's tumor, intra parotid lymph node amongst others. Histopathologic correlation is advised. Soft Tissue CT 03/05/16 - 13.9 x 10.5 mm elliptical shape enhancing lesion within the posterior superior margin of the RIGHT parotid gland. Dr. Junior consulted - IR will do Bx inpt Status: Chronic Dysphasia Assessment and Plan: Dysphasia to thin liquids s/p stroke 2010. 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 Ly - help appreciated Elevated ESR and CRP, LDH- WNL F/U workup ordered by Dr. Ly Status: Chronic Dark stools Assessment and Plan: Possibly secondary to hx of peptic ulcer GI Consult: Dr. Layne/Dr. Manley (patient's private GI) for dark stools - no further intervention at this time * Patient reports he is compliant on Aspirin 81mg PO daily and Protonix prior to hospitalization. Patient noting he has been noting 3-4 days of "black stools " * Patient has hx of peptic ulcer and on NSAID * Start Protonix 40mg IV Q 12hours * Stool occult blood: negative and NELSON * F/u stool culture, ova and parasite and stool leukocytes - no BM x3 days due to decreased appetite, given Miralax, pending repeat stool occult. Status: Acute Diabetes mellitus Assessment and Plan: HgbA1c (09/26/16): 7.4 Accuchecks ISS--> moderate Protocol Hold home medication: Metformin 500mg PO BID and elevated lactate Status: Acute History of hypertension Assessment and Plan: Continue home medications: * Vasotec 10mg PO BID * Monitor BP ECHO 10/04: EF 76% Status: Acute History of colon cancer Assessment and Plan: 2012- Colon cancer co-resection F/u with oncologist Dr. Krishna Pedro, December 2016 Imaging: CT abdomen and Pelvis (09/25/16): * Mild thickening of the descending and sigmoid colons which may represent an underlying mild colitis. Clinical correlation. Patient status post right hemicolectomy Status: Acute History of solitary pulmonary nodule Assessment and Plan: Pulmonology consulted - Dr. Kang - help appreciated due to interval increase in size 8.0 (02/2016) --> 8.4 mm RLL Pulmonary nodule Imaging: CT Abdomen and Pelvis (09/25/16): * 8.4 millimeter pulmonary nodule seen within the right middle lobe laterally on series 3, image 6 previously this measured 6 millimeters. Interval increase in size since the prior study. * Atelectasis within the lingula and bilateral lung bases. Additional scattered calcified foci at the left lung base suggestive for calcified granulomatous changes. 5 millimeter subpleural pulmonary nodule at the right lobe laterally not as well appreciated the prior study. CT chest without contrast (03/03/16): * 8 mm pulmonary nodule lateral segment right middle lobe. * Peripheral nodule left lower lobe 3 mm Status: Acute Prophylactic measure Assessment and Plan: GI PPx: Protonix 40mg IV Q12H DVT PPx: Contraindication due to dark stool, SCDs PT/OT evaluation and treatment - Patient wants to go back home. Refused SIMONE. <Josee Colindres V - Last Filed: 10/23/16 23:54> Objective - Vital Signs/Intake and Output Vital Signs (last 24 hours): Temp Pulse Resp BP Pulse Ox 98.2 F 59 L 20 156/85 H 99 10/22/16 18:00 10/22/16 18:00 10/22/16 18:00 10/22/16 18:00 10/22/16 18:00 - Labs Labs: 10/22/16 07:51 10/22/16 07:51 PT 12.3 SECONDS (9.7-12.2) H 10/19/16 11:37 INR 1.1 10/19/16 11:37 APTT 28 SECONDS (21-34) 10/19/16 11:37 Attending/Attestation - Attestation I have personally seen and examined this patient.: Yes I have fully participated in the care of the patient.: Yes I have reviewed all pertinent clinical information, including history, physical exam and plan: Yes Notes (Text): This is late computer entry for 10/21/16. Patient seen, examined, and case discussed with day-time resident. Patient seen in the morning. Patient is NPO. Discussed risks of tracheoesophageal fistula includine aspiration pneumonia; and possible thoracic surgery evaluation to correct it. Patient reports he does not want any surgical intervention. patient reports he will live with the consequences. GI, Dr Manley , has spoken with the patient as well, with same decision made by the patient. Discussed with Dr. Junior, evaluation for parotid lesion noted in prior imaging. patient ordered for interventional radiologist, ultrasound guided biopsy of left partoid biopsy and can follow-up afterwards. I reached out to patient's heme-oncologist, Dr. Pedro. Spoke with her the following day, recommended patient can call her office and schedule the outpatient PET scan sooner in the next 2 weeks.
[2016-10-22 01:32] VITALS: RESP 20
[2016-10-22] MEDS: Dextrose 5%/0.9% NS 1,000 ML IV SCH ×2 (01:40→06:07)
[2016-10-22] MEDS: Ciprofloxacin 400mg/200ml D5W 400 MG/200 ML BAG IVPB SCH ×3 (02:39→15:13)
--- NOTE | 2016-10-22 06:45 | CP.PCM.PN ---
Subjective - Date & Time of Evaluation Date of Evaluation: 10/22/16 Time of Evaluation: 06:42 - Subjective Subjective: F/U dysphagia Dysphagia- same Denies RB, melena, fever, chills, CP SOB, hematuria, hemoptysis, SZ Objective - Vital Signs/Intake and Output Vital Signs (last 24 hours): Temp Pulse Resp BP Pulse Ox 97.8 F 60 20 155/76 H 96 10/22/16 04:34 10/22/16 04:34 10/22/16 04:34 10/21/16 23:30 10/22/16 04:34 Intake and Output: 10/21/16 10/22/16 18:59 06:59 Intake Total 720 640 Output Total 950 Balance -230 640 - Medications Medications: Current Medications Enalapril Maleate (Vasotec) 10 mg PO Q12 [facility] Last Admin: 10/21/16 21:24 Dose: Not Given Dextrose/Sodium Chloride (Dextrose 5%/0.9% Ns 1000 Ml) 1,000 mls @ 80 mls/hr IV .[id number] [facility] Last Admin: 10/22/16 06:07 Dose: 80 mls/hr Ciprofloxacin (Cipro 400mg/200ml Dsw) 400 mg in 200 mls @ 133 mls/hr IVPB Q12H [facility] Last Admin: 10/22/16 02:39 Dose: 133 mls/hr Insulin Human Regular (Novolin R) 0 unit SC ACHS [facility] PRN Reason: Protocol Last Admin: 10/21/16 21:24 Dose: Not Given Pantoprazole Sodium (Protonix Inj) 40 mg IVP Q12H [facility] Last Admin: 10/22/16 06:06 Dose: 40 mg Tamsulosin HCl (Flomax) 0.4 mg PO DAILY [facility] Last Admin: 10/21/16 10:12 Dose: 0.4 mg - Labs Labs: 10/21/16 07:06 10/21/16 07:06 PT 12.3 SECONDS (9.7-12.2) H 10/19/16 11:37 INR 1.1 10/19/16 11:37 APTT 28 SECONDS (21-34) 10/19/16 11:37 - Constitutional Appears: Well - Respiratory Exam Respiratory Exam: Clear to Ausculation Bilateral - Cardiovascular Exam Cardiovascular Exam: RRR - GI/Abdominal Exam GI & Abdominal Exam: Soft, Normal Bowel Sounds. absent: Tenderness - Neurological Exam Neurological Exam: Alert, Oriented x3 - Psychiatric Exam Psychiatric exam: absent: Suicidal Ideation Assessment and Plan (1) Tracheo-esophageal fistula Assessment & Plan: SHould have eval by thoracic surgery- if patient agrees. Otherwise consider PEG - but an PEG by endoscopy may NOT be the best option due to the scope and the PEG tube being passed by the fistula area. Status: Acute (2) Dysphagia Assessment & Plan: CVA. Fistula. Status: Acute (3) History of hypertension Status: Acute (4) Diabetes mellitus Status: Acute (5) History of colon cancer Status: Acute
[2016-10-22] MEDS: (Novolin R) Insulin Human Regular 100 units/ml vial SC SCH ×3 (08:09→17:30)
[2016-10-22 08:23] LABS: BASO # 0.1 K/uL (0.0-0.2); BASO % 0.8 % (0.0-2.0); EOS # 0.4 K/uL (0.0-0.7); EOS % 6.1 % (0.0-4.0); HEMOGLOBIN 8.5 g/dL (12.0-18.0); LYMPH # 1.3 K/uL (1.0-4.3); LYMPH % 21.1 % (20.0-40.0); MEAN CORPUSCULAR HEMOGLOBIN 26.1 pg (27.0-31.0); MEAN CORPUSCULAR HGB CONC 33.5 g/dL (33.0-37.0); MEAN PLATELET VOLUME 7.4 fL (7.2-11.7); MONO # 0.5 K/uL (0.0-0.8); MONO % 7.5 % (0.0-10.0); NEUT # 3.9 K/uL (1.8-7.0); NEUT % 64.5 % (50.0-75.0); RBC 3.25 Mil/uL (4.40-5.90); RED CELL DISTRIBUTION WIDTH 16.5 % (11.5-14.5)
[2016-10-22 08:52] LABS: ALBUMIN 3.2 g/dL (3.5-5.0)
[2016-10-22 08:54] LABS: ALB/GLOB RATIO 0.9 (1.0-2.1); AST/SGOT 34 U/L (17-59); GFR AFRICAN-AMERICAN > 60; GFR NON-AFRICAN AMERICAN > 60
[2016-10-22 08:55] LABS: ALT/SGPT 48 U/L (21-72); BLOOD UREA NITROGEN 7 mg/dL (9-20); CALCIUM 7.9 mg/dl (8.6-10.4); MAGNESIUM 1.3 mg/dL (1.6-2.3)
--- NOTE | 2016-10-22 11:00 | PCM.URO ---
Urology Progress Note - General General: No Complaints, NPO - Subjective Abdominal Pain: No Flank Pain: No Voiding Well: Yes Dysuria: No Hematuria: No Good Stream: Yes - Objective Lab Results Last 24 Hours: Laboratory Results - last 24 hr 10/20/16 10/21/16 10/21/16 11:07 07:06 07:06 WBC 6.3 RBC 3.26 L Hgb 8.7 L Hct 25.5 L MCV 78.3 L MCH 26.6 L MCHC 33.9 RDW 16.4 H Plt Count 186 MPV 7.5 Neut % (Auto) 66.3 Lymph % (Auto) 18.7 L Surry % (Auto) 8.4 Eos % (Auto) 5.7 H Baso % (Auto) 0.9 Neut # 4.2 Lymph # 1.2 Surry # 0.5 Eos # 0.4 Baso # 0.1 Retic Count 0.7 Sodium 141 Potassium 3.8 Chloride 103 Carbon Dioxide 26 Anion Gap 16 BUN 10 Creatinine 1.1 Est GFR ( Amer) > 60 Est GFR (Non-Af Amer) > 60 POC Glucose (mg/dL) Random Glucose 101 Calcium 8.1 L Phosphorus 3.1 Magnesium 1.7 Total Bilirubin 0.3 AST 34 ALT 47 Alkaline Phosphatase 39 Total Protein 6.4 Albumin 3.3 L Globulin 3.1 Albumin/Globulin Ratio 1.1 Double Strand DNA Ab <1 10/21/16 10/21/16 10/21/16 11:34 17:13 21:10 WBC RBC Hgb Hct MCV MCH MCHC RDW Plt Count MPV Neut % (Auto) Lymph % (Auto) Surry % (Auto) Eos % (Auto) Baso % (Auto) Neut # Lymph # Surry # Eos # Baso # Retic Count Sodium Potassium Chloride Carbon Dioxide Anion Gap BUN Creatinine Est GFR ( Amer) Est GFR (Non-Af Amer) POC Glucose (mg/dL) 120 H 121 H 123 H Random Glucose Calcium Phosphorus Magnesium Total Bilirubin AST ALT Alkaline Phosphatase Total Protein Albumin Globulin Albumin/Globulin Ratio Double Strand DNA Ab 10/22/16 10/22/16 10/22/16 06:26 07:51 07:51 WBC 6.0 RBC 3.25 L Hgb 8.5 L Hct 25.3 L MCV 78.0 L MCH 26.1 L MCHC 33.5 RDW 16.5 H Plt Count 188 MPV 7.4 Neut % (Auto) 64.5 Lymph % (Auto) 21.1 Surry % (Auto) 7.5 Eos % (Auto) 6.1 H Baso % (Auto) 0.8 Neut # 3.9 Lymph # 1.3 Surry # 0.5 Eos # 0.4 Baso # 0.1 Retic Count Sodium 142 Potassium 3.5 L Chloride 104 Carbon Dioxide 25 Anion Gap 16 BUN 7 L Creatinine 1.0 Est GFR ( Amer) > 60 Est GFR (Non-Af Amer) > 60 POC Glucose (mg/dL) 106 Random Glucose 99 Calcium 7.9 L Phosphorus 3.0 Magnesium 1.3 L Total Bilirubin 0.5 AST 34 ALT 48 Alkaline Phosphatase 43 Total Protein 6.6 Albumin 3.2 L Globulin 3.4 Albumin/Globulin Ratio 0.9 L Double Strand DNA Ab Intake & Output: Intake & Output 10/21/16 10/22/16 10/22/16 18:59 06:59 18:59 Intake Total 720 640 Output Total 950 Balance -230 640 Intake: Intake, IV Amount 720 640 Left Forearm 720 640 Output: Urine 950 Urine, Voided 950 Other: # Bowel Movements 0 Vital Signs: Vital Signs - 24 hr 10/21/16 10/21/16 10/21/16 12:00 16:00 16:30 Temperature 98 F Pulse Rate 57 L 55 L 60 Respiratory 18 Rate Blood Pressure 145/66 O2 Sat by Pulse 100 Oximetry 10/21/16 10/22/16 10/22/16 23:30 04:34 08:38 Temperature 98 F 97.8 F 97.5 F L Pulse Rate 57 L 60 54 L Respiratory 20 20 20 Rate Blood Pressure 155/76 H 141/66 O2 Sat by Pulse 97 96 96 Oximetry 10/22/16 09:40 Temperature Pulse Rate Respiratory Rate Blood Pressure 141/66 O2 Sat by Pulse Oximetry - Physical Exam Abdominal Exam: Soft, Non-Tender, Non-Distended Back: No CVA Tenderness Genitalia: Without Inflammation Urine Color: Clear, Yellow - Plan Additional Information: Imp: urologically stable - Date & Time of Note Date: 10/22/16 Time: 11:00
--- NOTE | 2016-10-22 13:48 | PCM.SURG1 ---
Surgeon's Initial Post Op Note - Surgeon's Notes Surgeon: [employer] Internship: None Type of Anesthesia: Local Pre-Operative Diagnosis: Left parotid nodule. Operative Findings: Left parotid nodule. Post-Operative Diagnosis: Left parotid nodule. Operation Performed: Left parotid nodule biopsy. Specimen/Specimens Removed: FNA and core samples obtained. Estimated Blood Loss: EBL {In ML}: 1 Date of Surgery/Procedure: 10/22/16 Time of Surgery/Procedure: 13:40
[2016-10-22 18:05] VITALS: BP 156/85; PULSE 59; TEMP 98.2; O2SAT 99
--- NOTE | 2016-10-22 18:49 | CP.PCM.DIS ---
Provider - Provider Date of Admission: 10/17/16 15:32 Attending physician: Josee Colindres DO Time Spent in preparation of Discharge (in minutes): 33 Diagnosis - Discharge Diagnosis (1) Sepsis Status: Acute (2) Tracheo-esophageal fistula Status: Acute (3) Parotid mass Status: Acute (4) History of dermatomyositis Status: Chronic (5) Dark stools Status: Acute (6) Diabetes mellitus Status: Chronic (7) Dysphagia Status: Chronic (8) History of colon cancer Status: Chronic (9) History of hypertension Status: Acute (10) History of solitary pulmonary nodule Status: Chronic (11) Hypomagnesemia Status: Acute (12) Prostatitis Status: Acute (13) UTI (urinary tract infection) Status: Acute Hospital Course - Lab Results Lab Results: Most Recent Lab Values WBC 6.0 K/uL (4.8-10.8) 10/22/16 07:51 RBC 3.25 Mil/uL (4.40-5.90) L 10/22/16 07:51 Hgb 8.5 g/dL (12.0-18.0) L 10/22/16 07:51 Hct 25.3 % (35.0-51.0) L 10/22/16 07:51 MCV 78.0 fL (80.0-94.0) L 10/22/16 07:51 MCH 26.1 pg (27.0-31.0) L 10/22/16 07:51 MCHC 33.5 g/dL (33.0-37.0) 10/22/16 07:51 RDW 16.5 % (11.5-14.5) H 10/22/16 07:51 Plt Count 188 K/uL (130-400) 10/22/16 07:51 MPV 7.4 fL (7.2-11.7) 10/22/16 07:51 Neut % (Auto) 64.5 % (50.0-75.0) 10/22/16 07:51 Lymph % (Auto) 21.1 % (20.0-40.0) 10/22/16 07:51 [place] % (Auto) 7.5 % (0.0-10.0) 10/22/16 07:51 Eos % (Auto) 6.1 % (0.0-4.0) H 10/22/16 07:51 Baso % (Auto) 0.8 % (0.0-2.0) 10/22/16 07:51 Neut # 3.9 K/uL (1.8-7.0) 10/22/16 07:51 Lymph # 1.3 K/uL (1.0-4.3) 10/22/16 07:51 [place] # 0.5 K/uL (0.0-0.8) 10/22/16 07:51 Eos # 0.4 K/uL (0.0-0.7) 10/22/16 07:51 Baso # 0.1 K/uL (0.0-0.2) 10/22/16 07:51 ESR 49 mm/hr (0-15) H 10/18/16 17:46 Retic Count 0.7 % (0.5-1.5) 10/21/16 07:06 PT 12.3 SECONDS (9.7-12.2) H 10/19/16 11:37 INR 1.1 10/19/16 11:37 APTT 28 SECONDS (21-34) 10/19/16 11:37 Puncture Site Rra 10/19/16 10:16 pCO2 32 mm/Hg (35-45) L 10/19/16 10:16 pO2 110 mm/Hg (80-100) H 10/19/16 10:16 HCO3 24.7 mmol/L (21-28) 10/19/16 10:16 ABG pH 7.46 (7.35-7.45) H 10/19/16 10:16 ABG Total CO2 23.8 mmol/L (22-28) 10/19/16 10:16 ABG O2 Saturation 99.4 % (95-98) H 10/19/16 10:16 ABG Base Excess -0.3 mmol/L (-2.0-3.0) 10/19/16 10:16 Wilmer Test Po 10/19/16 10:16 ABG Potassium 3.8 mmol/L (3.6-5.2) 10/19/16 10:16 VBG pH 7.30 (7.32-7.43) L 10/17/16 14:37 VBG pCO2 44 mmHg (40-60) 10/17/16 14:37 VBG HCO3 19.8 mmol/L 10/17/16 14:37 VBG Total CO2 23.0 mmol/L (22-28) 10/17/16 14:37 VBG O2 Sat (Calc) 56.6 % (40-65) 10/17/16 14:37 VBG Base Excess -4.8 mmol/L (0.0-2.0) L 10/17/16 14:37 VBG Potassium 4.4 mmol/L (3.6-5.2) 10/17/16 14:37 A-a O2 Difference 0.0 mm/Hg 10/19/16 10:16 Respiratory Index 0 10/19/16 10:16 Sodium 142.0 mmol/l (132-148) 10/19/16 10:16 Chloride 113.0 mmol/L (98-107) H 10/19/16 10:16 Glucose 93 mg/dl (75-110) 10/19/16 10:16 Lactate 1.7 mmol/L (0.7-2.1) 10/19/16 10:16 FiO2 21.0 % 10/19/16 10:16 Sodium 142 mmol/L (132-148) 10/22/16 07:51 Potassium 3.5 mmol/L (3.6-5.2) L 10/22/16 07:51 Chloride 104 mmol/L (98-107) 10/22/16 07:51 Carbon Dioxide 25 mmol/L (22-30) 10/22/16 07:51 Anion Gap 16 (10-20) 10/22/16 07:51 BUN 7 mg/dL (9-20) L 10/22/16 07:51 Creatinine 1.0 MG/DL (0.8-1.5) 10/22/16 07:51 Est GFR ( Amer) > 60 10/22/16 07:51 Est GFR (Non-Af Amer) > 60 10/22/16 07:51 POC Glucose (mg/dL) 119 mg/dL (65-110) H 10/22/16 17:07 Random Glucose 99 mg/dL (75-110) 10/22/16 07:51 Hemoglobin A1c 7.1 % (4.2-6.5) H 10/19/16 07:08 Lactic Acid 4.0 mmol/L (0.7-2.1) H* 10/17/16 20:22 Calcium 7.9 mg/dl (8.6-10.4) L 10/22/16 07:51 Phosphorus 3.0 mg/dL (2.5-4.5) 10/22/16 07:51 Magnesium 1.3 mg/dL (1.6-2.3) L 10/22/16 07:51 Iron 83 ug/dL (49-181) 10/18/16 16:50 TIBC 351 ug/dL (250-450) 10/18/16 16:50 % Saturation 24 (20-55) 10/18/16 16:50 Ferritin 60.2 ng/mL 10/19/16 07:08 Total Bilirubin 0.5 mg/dL (0.2-1.3) 10/22/16 07:51 AST 34 U/L (17-59) 10/22/16 07:51 ALT 48 U/L (21-72) 10/22/16 07:51 Alkaline Phosphatase 43 U/L (38-126) 10/22/16 07:51 Lactate Dehydrogenase 322 U/L (313-618) 10/18/16 16:50 Troponin I < 0.0120 ng/mL (0.00-0.120) 10/17/16 14:31 C-React Prot High Sens 5.89 mg/L (1.00-3.00) H 10/19/16 07:08 NT-Pro-B Natriuret Pep 97.2 pg/mL (0-900) 10/17/16 14:31 Total Protein 6.6 g/dL (6.3-8.3) 10/22/16 07:51 Albumin 3.2 g/dL (3.5-5.0) L 10/22/16 07:51 Globulin 3.4 gm/dL (2.2-3.9) 10/22/16 07:51 Albumin/Globulin Ratio 0.9 (1.0-2.1) L 10/22/16 07:51 Triglycerides 169 mg/dL (0-149) H 10/19/16 07:08 Cholesterol 125 mg/dL (0-199) 10/19/16 07:08 LDL Cholesterol Direct 75 mg/dL (0-129) 10/19/16 07:08 HDL Cholesterol 26 mg/dL (30-70) L 10/19/16 07:08 Carcinoembryonic Ag 1.4 ng/mL (0-3.0) 10/19/16 07:08 Prostate Specific Ag 1.08 ng/mL (0.00-4.0) 10/18/16 16:50 Procalcitonin 0.06 NG/ML (0.19-0.49) L 10/17/16 18:35 Free T4 0.90 ng/dL (0.78-2.19) 10/18/16 06:17 TSH 3rd Generation 2.37 mIU/L (0.46-4.68) 10/18/16 06:17 Arterial Blood Potassium 3.8 mmol/L (3.6-5.2) 10/19/16 10:16 Venous Blood Potassium 4.4 mmol/L (3.6-5.2) 10/17/16 14:37 Urine Color Yellow (YELLOW) 10/17/16 14:51 Urine Clarity Hazy (Clear) 10/17/16 14:51 Urine pH 5.0 (5.0-8.0) 10/17/16 14:51 Ur Specific [place] 1.012 (1.003-1.030) 10/17/16 14:51 Urine Protein Negative mg/dL (NEGATIVE) 10/17/16 14:51 Urine Glucose (UA) Normal mg/dL (Normal) 10/17/16 14:51 Urine Ketones Negative mg/dL (NEGATIVE) 10/17/16 14:51 Urine Blood Negative (NEGATIVE) 10/17/16 14:51 Urine Nitrate Negative (NEGATIVE) 10/17/16 14:51 Urine Bilirubin Negative (NEGATIVE) 10/17/16 14:51 Urine Urobilinogen Normal mg/dL (0.2-1.0) 10/17/16 14:51 Ur Leukocyte Esterase Neg [place]/uL (Negative) 10/17/16 14:51 Urine WBC (Auto) 3 /hpf (0-5) 10/17/16 14:51 Urine RBC (Auto) 1 /hpf (0-3) 10/17/16 14:51 Ur Squamous Epith Cells 5 /hpf (0-5) 10/17/16 14:51 Urine Bacteria Rare (<OCC) 10/17/16 14:51 Stool Occult Blood Negative (NEGATIVE) 10/17/16 20:05 Cycl Citrul Peptide IgG <16 Units (<20) 10/19/16 07:08 PEREZ 6 Profile Negative (NEGATIVE) 10/19/16 07:08 Double Strand DNA Ab <1 IU/mL 10/20/16 11:07 Anti-Cardiolipin IgG Ab <14 GPL (<=14) 10/19/16 07:08 Anti-Cardiolipin IgM Ab <12 MPL (<=12) 10/19/16 07:08 Complement C3 119.0 mg/dL (88.0-165.0) 10/19/16 07:08 Complement C4 31.8 mg/dL (14.0-44.0) 10/19/16 07:08 HIV 1&2 Antibody Screen Negative (NEGATIVE) 10/18/16 09:56 Anti-Staphylolysin O Positive (NEGATIVE) H 10/19/16 07:08 Anti-Streptolysin Titr =>200 iu/ml (NEGATIVE) 10/19/16 07:08 - Hospital Course Hospital Course: On admission: "HPI: Patient is a 61 year old male with past medical history an enlarged prostate, hypertension, type 2 diabetes mellitus, colon cancer, peptic ulcer, dermatomyositis (dx at age 7), TIA/stroke, who was treated 2 weeks ago for a urinary tract infection caused by E.coli and S. Aureus. Patient presents to the ED today with complaints of generalized weakness, shortness of breath, urinary frequency and difficulty passing urine. Prior to this admission, patient states full compliance with a 10-day course of ciprofloxacin for UTI. He was in his usual state of health until "a few days ago" when he suddenly began to feel very weak. The patient denies fevers, chills, headaches, chest pain, diarrhea, dysuria, cough and associated symptoms. The patient has not traveled recently and has no sick contacts" Hospital Course: Patient admitted for urosepsis meeting SIRS criteria tachycardia, tachypnia and with elevated lactate levels. ID consulted and Cipro IV 400 mg Q12H was started and later eventually switched to Cipro 250 mg PO BID as patient improved. Due to elevated PSA level from prior admission, patient started on Flomax 0.4 mg PO daily. Repeat PSA 1. Stool occult blood negative. 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 Cipro 250 mg PO was then changed back to IV 400 mg Q12H. Patient strongly encouraged to consider CT surgery evaluation but refused despite understanding the risks. Patient refused all treatment options offered for the fistula. MRI of orbits, face, and neck revealed [id number] mm well-circumscribed smoothly marginated nodule in the superficial right parotid gland. Patient found with parotid mass which was biopsied on 10/22/16. Patient was recommended to follow up with Dr. Junior as an outpatient. Patient refuses CT workup and psychiatric evaluation. Patient is awake, alert, and oriented x3. Patient understands all complications and was verbally able to state them back. Patient has agreed to refuse workup despite this. Patient was recommended to follow up with Dr. Laureano for his recurrent UTI and prostatitis and with Dr. Velasco for psychiatric evaluation and treatment in addition to a primary care physician. Information was provided for CT surgery department in [facility] in [place], [place] as well as for Dr. Velasco. Information was also given for the [facility]. Patient discharged with prescription for 7 day course of Cipro 500 mg PO Q12. This is a summary of the hospital course. For more details, refer to the medical records. - Date & Time of H&P Date of H&P: 10/22/16 Time of H&P: 22:00 Discharge Exam - Head Exam Head Exam: ATRAUMATIC, NORMAL INSPECTION - Eye Exam Eye Exam: EOMI, PERRL - ENT Exam ENT Exam: Mucous Membranes Dry - Respiratory Exam Respiratory Exam: Clear to PA & Lateral. absent: Rales, Rhonchi, Wheezes - Cardiovascular Exam Cardiovascular Exam: REGULAR RHYTHM, +S1, +S2 - GI/Abdominal Exam GI & Abdominal Exam: Hypoactive Bowel Sounds, Soft. absent: Tenderness - Extremities Exam Additional comments: Generalized muscle wasting - Neurological Exam Neurological exam: Alert, CN II-XII Intact, Oriented x3 - Psychiatric Exam Psychiatric exam: Flat Affect - Skin Skin Exam: Dry, Intact, Normal Color Discharge Plan - Discharge Medications Prescriptions: Ciprofloxacin 500 mg PO Q12 #14 ml - Follow Up Plan Condition: STABLE Disposition: HOME/ ROUTINE Instructions: Ciprofloxacin (By mouth), Cystoscopy (DC), Sepsis (GEN), Full Liquid Diet (DC) Additional Instructions: Patient recommended to follow up with CT surgery at [place]. Call Cardiothoracic surgery department at . Ask for Dr. Jefry Brooks or any other cardiothoracic surgeon from their office. It is very important to manage the TE fistula which is the abnormal connection between your airway and the esophagus where food travels. If you do not get that taken care of, it may lead to serious injury, infection, bleeding, choking , and possibly even . Patient instructed to follow up with primary care physician within 1 week of discharge. Patient given information for [facility] in case he cannot get access to a primary care physician. Patient recommended to follow up with Dr. Velasco (Psychiatry) for depression as an outpatient. Patient recommended to follow up with Dr. Laureano as an outpatient for the UTI and prostatitis. Patient recommended to follow up with Dr. Junior for the parotid lesion. Patient instructed to take Ciprofloxacin 500 mg by mouth every 12 hours for 7 days. Continue home medications. Continue aspirin 81 mg by mouth daily. Continue protonix 40 mg by mouth daily. Continue Enalapril 10 mg by mouth two times a day. Continue Metformin 500 mg by mouth two times a day. If there any emergency symptoms like chest pain, please come back to the emergency room. Referrals: Diego Junior MD [Staff Provider] - Keaton Velasco MD [Staff Provider] - Willy Laureano MD [Staff Provider] -
--- NOTE | 2016-10-24 06:06 | HP ---
HISTORY OF PRESENT ILLNESS: Mr. Velez is a 61-year-old male admitted to hospital with complaints of fever, weakness, fatigue, and sepsis. The patient came to the emergency room, advised admission. PHYSICAL EXAMINATION: GENERAL: The patient is awake, alert, and oriented. VITAL SIGNS: Temperature 98, pulse 90. HEENT: Within normal limits. NECK: Supple. CHEST: Symmetrical. HEART: Regular. ABDOMEN: Soft. EXTREMITIES: No edema. IMPRESSION: The patient suffers from sepsis. The patient is on bedrest, IV antibiotics, ID consult. Calli Kang MD
--- NOTE | 2016-10-27 04:29 | OP ---
UROLOGY OPERATIVE REPORT PREOPERATIVE DIAGNOSES: Elevated PSA, voiding dysfunction, hematuria, recurrent episode of infection, and prostatitis. POSTOPERATIVE DIAGNOSES: Elevated PSA, voiding dysfunction, hematuria, recurrent episode of infection, and prostatitis. PROCEDURE: Cystoscopy and bilateral retrograde pyelogram and no complications. FINDINGS: Normal anterior urethra. No strictures on reviewing it and visually occlusive about 3 cm large for the patient's age. are within normal limits. Films submitted to radiologist to read. ESTIMATED BLOOD LOSS: Less than 10 mL. COMPLICATIONS: There were no complications. INDICATIONS: See history and physical and consultation. The patient with recurrent episodes of infection and elevated PSA indicating of the above testing. DESCRIPTION OF PROCEDURE: After obtained full consent, the patient was placed in table and routine monitors were placed. Time-out was called to confirm the patient positioning. Time-out was called, antibiotics the patient was on. Cystoscopy and bilateral retrograde pyelogram anterior urethra was normal. No strictures on reviewing it and it was visually occlusive at 3 cm. Bladder inspected carefully. No bladder tumor or ureteral orifice identified. Retrograde pyelogram performed, films submitted, but the patient appears within normal limits. Bladder was inspected and retrograde pyelogram shows 20 to 30 g prostate of smooth. The patient tolerated without complication. I also used Lidocaine jelly for the postoperative analgesia. Addy Laureano MD
--- NOTE | 2016-10-27 05:09 | PN ---
DATE: 10/20/2016 SUBJECTIVE: See the previously dictated consultation note and operative report, consult is from 10/18 and operative report from 10/19. The patient is resting comfortably. No new changes. No new complaints. The diagnoses and physical exam remains unchanged. DIAGNOSES: Urinary retention, voiding dysfunction, recurrent episodes of urinary tract infection and elevated PSA and proctitis. PLAN: The plan is as follows, I discussed with the patient at great length. The patient recommendation is to have outpatient followup and to consider prostate ultrasound and biopsy, but not during this episode of acute infection. I explained to the patient. I took his cell number, he took my number, my card, my office visits. We will plan for followup. Addy Laureano MD
--- NOTE | 2016-10-27 05:09 | CON ---
DATE: 10/18/2016 REASON FOR CONSULTATION: Recurrent infection. HISTORY OF PRESENT ILLNESS: A pleasant gentleman who is here in the hospital for infection. He has recurrent urinary tract infection. Voiding dysfunction, irritative and obstructive complaints. He has an elevated PSA, it was noted on the chart. PAST MEDICAL AND SURGICAL HISTORY: As listed. REVIEW OF SYSTEMS: No complications. See the rest of the chart. PHYSICAL EXAMINATION: GENERAL: No apparent distress. VITAL SIGNS: Within normal limits as listed in the chart. ABDOMEN: Soft and obese. GENITOURINARY: The patient has normal phallus without discharge. RECTAL: Deferred. *------* mentioned below. See the plan stated below. DIAGNOSES: Recurrent infection and abnormal PSA. We recommend a prostate ultrasound and biopsy, but not while he is having this infection, the patient is currently on antibiotics. We will *------* cystoscopic evaluation. Further plans will follow. ASSESSMENT: As follows: 1. Urine culture and urine cytology. 2. Repeat prostate-specific antigen to follow. 3. Cystoscopy retrograde pyelogram. Further plans will follow. Thanks for the urology consultation. Addy Laureano MD
== END 2016-10-22 19:40 | disposition home or self-care (01) | DRG 871 ==
LOC: C.ER 13:41 → C.9E 15:32 → C.6T 16:11
PROVIDERS: ADMIT Hospitalist; ATTEND Hospitalist
PROC: BT141ZZ Fluoroscopy of Kidneys, Ureters and Bladder using Low Osmolar Contrast (ICD-10-PCS; 2016-10-19)
PROC: 0TJB8ZZ Inspection of Bladder, Via Natural or Artificial Opening Endoscopic (ICD-10-PCS; principal; 2016-10-19 15:45)
PROC: 0CB93ZX Excision of Left Parotid Gland, Percutaneous Approach, Diagnostic (ICD-10-PCS; 2016-10-22)
DX: A41.9 Sepsis, unspecified organism (principal); J86.0 Pyothorax with fistula; N17.9 Acute kidney failure, unspecified; R64 Cachexia; N39.0 Urinary tract infection, site not specified; E11.9 Type 2 diabetes mellitus without complications; B96.20 Unspecified Escherichia coli [E. coli] as the cause of diseases classified elsewhere; J98.11 Atelectasis; K76.0 Fatty (change of) liver, not elsewhere classified; E83.42 Hypomagnesemia; K11.1 Hypertrophy of salivary gland; I10 Essential (primary) hypertension; F17.290 Nicotine dependence, other tobacco product, uncomplicated; N41.9 Inflammatory disease of prostate, unspecified; R19.5 Other fecal abnormalities; N40.1 Benign prostatic hyperplasia with lower urinary tract symptoms; R91.1 Solitary pulmonary nodule; R39.11 Hesitancy of micturition; R31.0 Gross hematuria; R33.8 Other retention of urine; D50.9 Iron deficiency anemia, unspecified; I69.391 Dysphagia following cerebral infarction; E86.0 Dehydration; Z66 Do not resuscitate; Z51.5 Encounter for palliative care; F41.9 Anxiety disorder, unspecified; Z85.038 Personal history of other malignant neoplasm of large intestine; Z87.11 Personal history of peptic ulcer disease; Z80.9 Family history of malignant neoplasm, unspecified